=== PATIENT | female | born 1945 ===

== ENCOUNTER 2016-10-07 17:40 | Inpatient (IN) | payer OTHER ==
[2016-10-07] MEDS ORDERED: Sodium Chloride 0.9% 1,000 ML IV STA (18:16)
[2016-10-07 18:41] LABS: VENOUS BLOOD GAS BASE EXCESS -4.5 mmol/L (0.0-2.0); VENOUS BLOOD GAS MODE ROOM AIR; VENOUS BLOOD GAS PCO2 70 mmHg (40-60); VENOUS BLOOD PH 7.17 (7.32-7.43)
[2016-10-07 18:44] LABS: BASO # 0.1 K/uL (0.0-0.2); BASO % 0.2 % (0.0-2.0); EOS # 0.1 K/uL (0.0-0.7); EOS % 0.4 % (0.0-4.0); HEMATOCRIT 38.7 % (34.0-47.0); LYMPH # 1.1 K/uL (1.0-4.3); LYMPH % 5.3 % (20.0-40.0); MEAN CELL VOLUME 94.2 fl (81.0-99.0); MEAN CORPUSCULAR HEMOGLOBIN 30.8 pg (27.0-31.0); MEAN CORPUSCULAR HGB CONC 32.7 g/dL (33.0-37.0); MEAN PLATELET VOLUME 8.5 fl (7.2-11.7); MONO # 0.9 K/uL (0.0-0.8); MONO % 4.3 % (0.0-10.0); NEUT # 18.9 K/uL (1.8-7.0); NEUT % 89.8 % (50.0-75.0); PLATELET COUNT 264 K/uL (130-400); RED CELL DISTRIBUTION WIDTH 12.9 % (11.5-14.5)
[2016-10-07 18:53] LABS: ALKALINE PHOSPHATASE 120 U/L (38-126); ALT/SGPT 27 U/L (9-52); AST/SGOT 22 U/L (14-36); BILIRUBIN,TOTAL 0.5 mg/dl (0.2-1.3); BLOOD UREA NITROGEN 18 mg/dl (7-17); CALCIUM 9.7 mg/dL (8.4-10.2); CARBON DIOXIDE 26 mmol/L (22-30); CHLORIDE 99 mmol/L (98-107); GFR AFRICAN-AMERICAN > 60; GLUCOSE,RANDOM 286 mg/dL (65-105); LIPASE 87 U/L (23-300); MAGNESIUM 1.3 MG/DL (1.6-2.3); PHOSPHOROUS 3.4 mg/dl (2.5-4.5); POTASSIUM 3.9 MMOL/L (3.6-5.0); SODIUM 139 mmol/l (132-148); TOTAL PROTEIN 7.7 G/DL (6.3-8.2)
[2016-10-07 18:58] LABS: PARTIAL THROMBOPLASTIN TIME 26.1 SECONDS (23.3-32.5)
--- NOTE | 2016-10-07 19:10 | ED PDOC ---
HPI: General Adult Time Seen by Provider: 10/07/16 18:13 Chief Complaint (Nursing): Dizziness/Lightheaded Chief Complaint (Provider): Weakness/Vomiting History Per: Patient History/Exam Limitations: no limitations Have you had recent travel within the past 21 days to any of the following countries: [place], [place], [place] or [place]?: No Current Symptoms Are (Timing): Still Present Additional Complaint(s): 18:13 Di Larson is a 71 year old female with a history of hypertension, diabetes , and uterine cancer, as well as a past surgical history of cholecystectomy presents to the ED with a chief complaint of vomiting, three episodes of which she experienced today. Her associated symptoms include headache, diffuse myalgias, lightheadedness, malaise, fatigue, and fever. She states that she has yet to taken any medications for her symptoms, denies any sick contacts or recent travel, as well as denies diarrhea, urinary symptoms, or respiratory symptoms. Past Medical History Reviewed: Historical Data, Nursing Documentation, Vital Signs Vital Signs: Last Vital Signs Temp 99 F 10/08/16 06:41 Pulse 83 10/08/16 09:46 Resp 20 10/08/16 09:46 BP 110/56 L 10/08/16 09:46 Pulse Ox 98 10/08/16 09:46 - Medical History PMH: Diabetes, HTN Denies: HIV Other PMH: uterine CA - Surgical History Surgical History: Cholecystectomy - Family History Family History: States: No Known Family Hx - Social History Current smoker - smoking cessation education provided: No Alcohol: None Drugs: Denies - Home Medications Home Medications: Ambulatory Orders Medication Instructions Recorded Ergocalciferol (Vitamin D2) 50,000 unit PO QWK 10/08/16 [Vitamin D2] Lisinopril [Zestril] 5 mg PO DAILY 10/08/16 Metformin HCl [Glucophage] 1,000 mg PO DAILY 10/08/16 Simvastatin [Zocor] 40 mg PO DAILY 10/08/16 Vitamin A/Vitamin D2 [South African 50,000 mg PO DAILY 10/08/16 Cod Liver Oil Sfgl] - Allergies Allergies/Adverse Reactions: Allergies Allergy/AdvReac Type Severity Reaction Status Date / Time No Known Allergies Allergy Verified 05/07/14 20:42 Review of Systems Constitutional: Positive for: Fever, Weakness, Malaise, Other (fatigue,, diffuse myalgias) Cardiovascular: Positive for: Light Headedness Respiratory: Negative for: Other (no respiratory symptoms) Gastrointestinal: Positive for: Vomiting (x3). Negative for: Diarrhea Genitourinary Female: Negative for: Other (no urinary symptoms) Physical Exam - Reviewed Nursing Documentation Reviewed: Yes Vital Signs Reviewed: Yes - Physical Exam Appears: Positive for: Uncomfortable, In Acute Distress Head Exam: Positive for: ATRAUMATIC, NORMOCEPHALIC Skin: Positive for: Warm, Dry. Negative for: Rash ENT: Positive for: Pharynx Is (clear), Other (dry mucous membranes) Neck: Positive for: Painless ROM, Supple Cardiovascular/Chest: Positive for: Chest Non Tender, Tachycardia (tachycardic with regular rhythm). Negative for: Edema, Murmur Respiratory: Positive for: Normal Breath Sounds (cleared to auscultation bilaterally). Negative for: Rales, Rhonchi, Wheezing Gastrointestinal/Abdominal: Positive for: Soft. Negative for: Tenderness, Mass , Distended, Guarding, Rebound Back: Positive for: Normal Inspection. Negative for: L CVA Tenderness, R CVA Tenderness Extremity: Positive for: Normal ROM. Negative for: Pedal Edema, Deformity Lymphatic: Negative for: Adenopathy Neurologic/Psych: Positive for: Alert, Oriented (x3). Negative for: Motor/ Sensory Deficits - Laboratory Results Result Diagrams: 10/07/16 17:30 10/08/16 08:10 - ECG O2 Sat by Pulse Oximetry: 98 (RA) Pulse Ox Interpretation: Normal Medical Decision Making Medical Decision Makin:30 Initial Impression: Vomiting and Fever vs. Sepsis vs. Dehydration vs. Gastritis vs. Gastroenteritis vs. Pancreatitis vs. Electrolyte Abnormalities vs. Hyperglycemia vs. DKA Initial Plan: * CBC * Glucose * Blood culture * POC * Urine culture * Urinalysis * Sodium Chloride 1000 mL at 1000 mLs/hr * Tylenol 975 mg PO * Zofran 8 mg IV * Chest X-Ray * EKG * Reevaluation * * * Accession No. 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 no. Patient Name: DI LARSON Pt. Address: [address] [place] [address] Rec #: [id number] [place] [address]: Manuel SPENCER, Alona Larry Pt CELL Order Location: [facility] : 1945 Female Age: 71 Order #: [id number] Reason for exam: vomiting CT Scan ABD PELVIS IV CONTRAST ONLY Exam Date: 10/07/16 This imaging exam was performed at [facility] EXAM: CT Abdomen and Pelvis With Intravenous Contrast. CLINICAL HISTORY: 71 years old, female; Signs and symptoms; Nausea and vomiting; Prior surgery ; Surgery date: 6+ months; Surgery type: Uterine ca. Cholecystectomy TECHNIQUE: Axial computed tomography images of the abdomen and pelvis with intravenous contrast. This CT exam was performed using one or more of the following dose reduction techniques: automated exposure control, adjustment of the mA and/or kV according to patient size, and/or use of iterative reconstruction technique. Coronal and sagittal reformatted images were created and reviewed. CONTRAST: 95 mL of [id number] administered intravenously. COMPARISON: CT - ABD PELVIS PO CONTRAST ONLY 05/21/2014 8:44:55 PM FINDINGS: Lower thorax: The heart as visualized appears mildly enlarged. Mild atelectasis and/or scarring in the lung bases. ABDOMEN: Liver: There is a diffuse decrease in hepatic parenchymal density, consistent with fatty infiltration. There are no focal liver lesions present. Gallbladder and bile ducts: There has been a cholecystectomy. No ductal dilation. Pancreas: 1.6 CM cystic lesion in the body of the pancreas on series 3, image 46. However, this is little changed from 05/21/2014. This suggests a benign lesion. The pancreas is somewhat atrophic and slightly fatty replaced. Spleen: The spleen is normal. Adrenals: The adrenal glands are normal. Kidneys and ureters: The kidneys are normal. No hydronephrosis. Stomach and bowel: Stomach is decompressed. Colonic constipation is present. There is no evidence of intestinal obstruction. No mucosal thickening. Appendix: A normal appendix is identified. PELVIS: Bladder: The bladder is normal. Reproductive: Uterus is atrophic. ABDOMEN and PELVIS: Intraperitoneal space: There is no evidence of free intraperitoneal fluid. There is no free intraperitoneal air. Bones/joints: There are moderate degenerative changes present. There is moderate diffuse osteopenia. No acute fracture. No dislocation. Soft tissues: There are small, left greater than right fat containing inguinal hernias. Vasculature: The aorta is normal. No abdominal aortic aneurysm. Lymph nodes: There are borderline bilateral inguinal nodes without chucho adenopathy. There is no evidence of lymphadenopathy. IMPRESSION: 1. The heart as visualized appears mildly enlarged. 2. 1.6 CM cystic lesion in the body of the pancreas on series 3, image 46. However, this is little changed from 05/21/2014. This suggests a benign lesion. 3. Additional incidental and/or chronic findings as described. Dictated By: Patrick Brito MD, MD Dictated Date/Time: 10/07/162238 Signed By: Patrick Brito MD Date Signed: 2238 Transcribed By: SASCHA Transcribe Date/Time : 10/07/162238 TONIA/DARVIN Pt with marked leukocytosis on labs, initially elevated lactic acid (improving with IVF treatment.) Continues to have some weakness and nausea, as well as comorbidities with sepsis. Hospitalized to Dr Cannon (for PMD Dr Mccray) for continued IVF and bowel rest. DANIEL Cannon @3680. DANIEL pt and family findings and plan of care. Scribe Attestation: Documented by Olga Ribeiro, acting as a scribe for Alona Jackson MD. Provider Scribe Attestation: All medical record entries made by the Scribe were at my direction and personally dictated by me. I have reviewed the chart and agree that the record accurately reflects my personal performance of the history, physical exam, medical decision making, and the department course for this patient. I have also personally directed, reviewed, and agree with the discharge instructions and disposition. Disposition - Clinical Impression Clinical Impression: Vomiting, Sepsis Counseled Patient/Family Regarding: Studies Performed, Diagnosis - Disposition Disposition Time: 23:00 Condition: GUARDED - Pt Status Changed To: Hospital Disposition Of: Observation - POA Present On Arrival: Poor Glycemic Control
[2016-10-07 19:49] LABS: NEUTROPHIL 90 % (42-75); TOTAL CELLS COUNTED 100
[2016-10-07 20:02] LABS: RBC URINE 3 /hpf (0-3); URINE BACTERIA RARE (<OCC); URINE BILIRUBIN NEGATIVE (NEGATIVE); URINE BLOOD NEGATIVE (NEGATIVE); URINE COLOR YELLOW (YELLOW); URINE GLUCOSE (UA) >=500 mg/dL (Normal); URINE KETONE TRACE mg/dL (NEGATIVE); URINE LEUKOCYTE ESTERASE NEG Leu/uL (Negative); URINE PROTEIN NEGATIVE (NEGATIVE); URINE UROBILINOGEN 0.2-1.0 mg/dL (0.2-1.0); WBC URINE 1 /hpf (0-5)
[2016-10-07] MEDS ORDERED: Piperacillin/Tazobact 3.375 GM in Sodium Chloride 0.9% 100 ML IV STA (20:40)
[2016-10-07] MEDS ORDERED: Piperacillin/Tazobact 3.375 gm Inj IVPB ONE (20:57)
[2016-10-07 21:15] LABS: ABG ALLEN TEST YES; ARTERIAL BLOOD GAS HCO3 26.5 mmol/L (21-28); ARTERIAL BLOOD GAS MODE ROOM AIR; ARTERIAL BLOOD GAS PH 7.41 (7.35-7.45); ARTERIAL BLOOD GAS PO2 66 mm/Hg (80-100)
[2016-10-07] MEDS ORDERED: Iohexol 300 100 ML IJ ONE (21:57)
[2016-10-07] MEDS ORDERED: Sodium Chloride 0.9% 50 ML IV ONE (21:57)
--- NOTE | 2016-10-07 22:40 | CT ---
EXAM: CT Abdomen and Pelvis With Intravenous Contrast. CLINICAL HISTORY: 71 years old, female; Signs and symptoms; Nausea and vomiting; Prior surgery; Surgery date: 6+ months; Surgery type: Uterine ca. Cholecystectomy TECHNIQUE: Axial computed tomography images of the abdomen and pelvis with intravenous contrast. This CT exam was performed using one or more of the following dose reduction techniques: automated exposure control, adjustment of the mA and/or kV according to patient size, and/or use of iterative reconstruction technique. Coronal and sagittal reformatted images were created and reviewed. CONTRAST: 95 mL of [id number] administered intravenously. COMPARISON: CT - ABD PELVIS PO CONTRAST ONLY 05/21/2014 8:44:55 PM FINDINGS: Lower thorax: The heart as visualized appears mildly enlarged. Mild atelectasis and/or scarring in the lung bases. ABDOMEN: Liver: There is a diffuse decrease in hepatic parenchymal density, consistent with fatty infiltration. There are no focal liver lesions present. Gallbladder and bile ducts: There has been a cholecystectomy. No ductal dilation. Pancreas: 1.6 CM cystic lesion in the body of the pancreas on series 3, image 46. However, this is little changed from 05/21/2014. This suggests a benign lesion. The pancreas is somewhat atrophic and slightly fatty replaced. Spleen: The spleen is normal. Adrenals: The adrenal glands are normal. Kidneys and ureters: The kidneys are normal. No hydronephrosis. Stomach and bowel: Stomach is decompressed. Colonic constipation is present. There is no evidence of intestinal obstruction. No mucosal thickening. Appendix: A normal appendix is identified. PELVIS: Bladder: The bladder is normal. Reproductive: Uterus is atrophic. ABDOMEN and PELVIS: Intraperitoneal space: There is no evidence of free intraperitoneal fluid. There is no free intraperitoneal air. Bones/joints: There are moderate degenerative changes present. There is moderate diffuse osteopenia. No acute fracture. No dislocation. Soft tissues: There are small, left greater than right fat containing inguinal hernias. Vasculature: The aorta is normal. No abdominal aortic aneurysm. Lymph nodes: There are borderline bilateral inguinal nodes without chucho adenopathy. There is no evidence of lymphadenopathy. IMPRESSION: 1. The heart as visualized appears mildly enlarged. 2. 1.6 CM cystic lesion in the body of the pancreas on series 3, image 46. However, this is little changed from 05/21/2014. This suggests a benign lesion. 3. Additional incidental and/or chronic findings as described.
[2016-10-07] MEDS ORDERED: Sodium Chloride 0.9% 75 ML IV STA (22:53)
[2016-10-08 08:34] LABS: ALB/GLOB RATIO 0.9 (1.0-2.1); ALKALINE PHOSPHATASE 80 U/L (38-126); ALT/SGPT 21 U/L (9-52); AST/SGOT 17 U/L (14-36); BILIRUBIN,TOTAL 0.6 mg/dl (0.2-1.3); BLOOD UREA NITROGEN 14 mg/dl (7-17); CALCIUM 8.3 mg/dL (8.4-10.2); CARBON DIOXIDE 26 mmol/L (22-30); CHLORIDE 105 mmol/L (98-107); CHOLESTEROL 106 mg/dL (0-199); GFR AFRICAN-AMERICAN > 60; GLUCOSE,RANDOM 210 mg/dL (65-105); POTASSIUM 3.7 MMOL/L (3.6-5.0); SODIUM 141 mmol/l (132-148); TOTAL PROTEIN 6.4 G/DL (6.3-8.2)
[2016-10-08 08:54] LABS: T4 4.15 ug/dl (5.5-11.0)
[2016-10-08] MEDS ORDERED: VITAMIN A PO SCH (09:00)
[2016-10-08] MEDS ORDERED: VITAMIN D2 PO SCH (09:00)
[2016-10-08 09:07] LABS: THYROID STIMULATING HORMONE 2.06 mIU/ML (0.46-4.68)
--- NOTE | 2016-10-08 09:40 | RAD ---
HISTORY: Sepsis Patient COMPARISON: Comparison is made to the previous study dated 11/09/2013 FINDINGS: LUNGS: No evidence of new infiltrate or consolidation in the lungs. PLEURA: No significant pleural effusion identified, no pneumothorax apparent. CARDIOVASCULAR: The cardiac silhouette is mildly enlarged. OSSEOUS STRUCTURES: No significant abnormalities. VISUALIZED UPPER ABDOMEN: Normal. OTHER FINDINGS: None. IMPRESSION: No active disease. No significant interval change.
--- NOTE | 2016-10-08 13:57 | CARD ---
APPROVED REPORT EKG Measurement Heart [id number] MI [id number] <Conclusion> Sinus tachycardia Possible Left atrial enlargement Nonspecific ST and T wave abnormality Abnormal ECG
--- NOTE | 2016-10-08 14:19 | CP.PCM.HP ---
History of Present Illness - History of Present Illness History of Present Illness: CC: Vomiting/Fever. 71 y/o F evaluated by ER doctor at [facility] for Vomiting x3 on DOA with no relief of symptoms. Pt was brought by family c/o of vomiting x 3 associated to fever and chills (in ER TMAx 101.6), also associated to headache, lightheadedness ( BS finger stick 313, HR 137). Worsening symptoms: Weakness, dizziness. Aggravating factor: As per family, she took extra dose of Metformin on DOA. As per daughter; Pt had consult with her PMD on DOA in AM and her Metformin medication was changed from 500 to 1000 mg, when she get home she took both doses and since that moment she begins feeling bad and vomiting start, after she vomiting for 3rd time, and felt she had tactile fever, she bring her mother to ER [facility] and after evaluation Pt was admitted. Pt denied: Diarrhea, abdominal pain, CP, SOB, cough, urinary symptoms, sick contact, recent travel. PMHx: HTN, DMII, Uterine Ca. CXR shows: No active disease. CT Abd/Pelv: 1.6 cm cystic lesion in the body of the pancreas, there is a little change from CT of 05/21/14, this suggests a benign lesion. EKG= Sinus Tachycardia. Present on Admission - Present on Admission Any Indicators Present on Admission: Yes History of Uncontrolled Diabetes: Yes Review of Systems - Constitutional Constitutional: Chills, Fever, Headache, Weakness - EENT Eyes: Other (negative) Ears: Other (negative) Nose/Mouth/Throat: Other (negative) - Cardiovascular Cardiovascular: Lightheadedness, Rapid Heart Rate. absent: Pedal Edema - Respiratory Respiratory: Other (negative) - Gastrointestinal Gastrointestinal: Nausea, Vomiting - Genitourinary Genitourinary: Other (negative) - Musculoskeletal Musculoskeletal: Other (negative) - Integumentary Integumentary: Other (negative) - Neurological Neurological: Other (negative) - Psychiatric Psychiatric: Other (negative) - Endocrine Endocrine: Other (negative) - Hematologic/Lymphatic Hematologic: Other (negative) Past Patient History - Past Medical History & Family History Past Medical History?: Yes Pertinent Family History: unknown - Past Social History Smoking Status: Never Smoked Alcohol: None Drugs: Denies Home Situation {Lives}: With Family - CARDIAC Hx Cardiac Disorders: Yes Hx Hypertension: Yes - PULMONARY Hx Respiratory Disorders: No - NEUROLOGICAL Hx Neurological Disorder: No - HEENT Hx HEENT Problems: No - RENAL Hx Chronic Kidney Disease: No - ENDOCRINE/METABOLIC Hx Endocrine Disorders: Yes Hx Diabetes Mellitus Type 2: Yes - HEMATOLOGICAL/ONCOLOGICAL Hx Cancer: Yes (Uterine) Hx Human Immunodeficiency Virus (HIV): No - INTEGUMENTARY Hx Dermatological Problems: No - MUSCULOSKELETAL/RHEUMATOLOGICAL Hx Musculoskeletal Disorders: No - GASTROINTESTINAL Hx Gastrointestinal Disorders: No - GENITOURINARY/GYNECOLOGICAL Hx Genitourinary Disorders: No - PSYCHIATRIC Hx Psychophysiologic Disorder: No - SURGICAL HISTORY Hx Surgeries: Yes Hx Cholecystectomy: Yes - ANESTHESIA Hx Anesthesia: Yes Hx Anesthesia Reactions: No Meds Home Medications: Home Medication List Medication Instructions Recorded Confirmed Type Ciprofloxacin HCl [Cipro] 500 mg PO BID #10 tablet 10/11/16 Rx Lactobacillus Acidophilus [Bacid 1 cap PO BID #10 cap 10/11/16 Rx Acidophilus] Allergies/Adverse Reactions: Allergies Allergy/AdvReac Type Severity Reaction Status Date / Time No Known Allergies Allergy Verified 05/07/14 20:42 Physical Exam - Constitutional Appears: No Acute Distress - Head Exam Head Exam: NORMAL INSPECTION - Eye Exam Eye Exam: PERRL - ENT Exam ENT Exam: Normal Oropharynx - Neck Exam Neck exam: Positive for: Normal Inspection - Respiratory Exam Respiratory Exam: NORMAL BREATHING PATTERN - Cardiovascular Exam Cardiovascular Exam: REGULAR RHYTHM - GI/Abdominal Exam GI & Abdominal Exam: Normal Bowel Sounds, Soft - Extremities Exam Extremities exam: Positive for: normal inspection - Back Exam Back exam: NORMAL INSPECTION - Neurological Exam Neurological exam: Alert, Oriented x3 Additional comments: Follows commands. - Psychiatric Exam Psychiatric exam: Normal Mood - Skin Skin Exam: Warm Results - Vital Signs Recent Vital Signs: Last Vital Signs Temp 99 F 10/08/16 06:41 Pulse 82 10/08/16 14:12 Resp 20 10/08/16 14:12 BP 110/56 L 10/08/16 14:12 Pulse Ox 98 10/08/16 14:12 reviewed JSunita - Labs Result Diagrams: 10/10/16 05:50 10/10/16 05:50 Labs: Laboratory Results - last 24 hr 10/08/16 08:10 Sodium 141 Potassium 3.7 Chloride 105 Carbon Dioxide 26 Anion Gap 14 BUN 14 Creatinine 0.5 L Est GFR ( Amer) > 60 Est GFR (Non-Af Amer) > 60 Random Glucose 210 H Calcium 8.3 L Total Bilirubin 0.6 AST 17 ALT 21 Alkaline Phosphatase 80 Total Protein 6.4 Albumin 3.0 L D Globulin 3.4 Albumin/Globulin Ratio 0.9 L Triglycerides 61 D Cholesterol 106 LDL Cholesterol Direct 55 HDL Cholesterol 32 Thyroxine (T4) 4.15 L Total T3 0.591 L TSH 3rd Generation 2.06 reviewed J.P. - EKG Data EKG comments: reviewed J.P. - Imaging and Cardiology Chest x-ray Status: Report reviewed by me (Reynaldo) CT scan - abdomen Status: Report reviewed by me (Reynaldo) CT scan - pelvis Status: Report reviewed by me (Reynaldo) Assessment & Plan - Assessment and Plan (Free Text) Assessment: Sepsis Acute high Vomiting Acute high Fever Acute high DMII Chronic high HTN Chronic. Plan: Continue Zosyn IV, Zofram, Zestril, Lipitor and rest of Tx, f/u Blood C-S, U C- S. - Date & Time Date: 10/08/16 Time: 12:00
[2016-10-08] MEDS ORDERED: Piperacillin/Tazobact 3.375 gm Inj IVPB ONE (14:42)
[2016-10-08] MEDS: Piperacillin/Tazobact 3.375 GM in Sodium Chloride 0.9% 100 ML IVPB SCH ×2 (14:53→21:25)
[2016-10-08 15:49] LABS: BASO % 0.2 % (0.0-2.0); EOS % 0.4 % (0.0-4.0); HEMATOCRIT 33.7 % (34.0-47.0); LYMPH # 1.3 K/uL (1.0-4.3); MEAN CELL VOLUME 95.6 fl (81.0-99.0); MEAN CORPUSCULAR HEMOGLOBIN 30.8 pg (27.0-31.0); MEAN CORPUSCULAR HGB CONC 32.2 g/dL (33.0-37.0); MEAN PLATELET VOLUME 9.2 fl (7.2-11.7); MONO # 0.7 K/uL (0.0-0.8); MONO % 5.8 % (0.0-10.0); NEUT # 9.1 K/uL (1.8-7.0); NEUT % 81.6 % (50.0-75.0); RED CELL DISTRIBUTION WIDTH 12.9 % (11.5-14.5); WHITE BLOOD COUNT 11.2 K/uL (4.8-10.8)
[2016-10-08] MEDS: Sodium Chloride 0.45% 1,000 ML IV SCH (18:06)
[2016-10-08] MEDS: Insulin Lispro (humaLOG) 100 Units/ml Inj SC SCH (22:32)
[2016-10-09] MEDS: Piperacillin/Tazobact 3.375 GM in Sodium Chloride 0.9% 100 ML IVPB SCH ×4 (03:51→22:27)
[2016-10-09] MEDS: Sodium Chloride 0.45% 1,000 ML IV SCH ×2 (03:57→05:15)
[2016-10-09] MEDS: Insulin Lispro (humaLOG) 100 Units/ml Inj SC SCH ×4 (07:28→22:36)
[2016-10-09 08:12] LABS: HEMATOCRIT 32.5 % (34.0-47.0); MEAN CELL VOLUME 95.6 fl (81.0-99.0); MEAN CORPUSCULAR HEMOGLOBIN 31.3 pg (27.0-31.0); MEAN CORPUSCULAR HGB CONC 32.7 g/dL (33.0-37.0); RED CELL DISTRIBUTION WIDTH 13.1 % (11.5-14.5); WHITE BLOOD COUNT 7.5 K/uL (4.8-10.8)
[2016-10-09 08:16] LABS: ALB/GLOB RATIO 0.9 (1.0-2.1); ALKALINE PHOSPHATASE 78 U/L (38-126); ALT/SGPT 22 U/L (9-52); AST/SGOT 17 U/L (14-36); BILIRUBIN,TOTAL 0.4 mg/dl (0.2-1.3); BLOOD UREA NITROGEN 11 mg/dl (7-17); CALCIUM 8.5 mg/dL (8.4-10.2); CARBON DIOXIDE 26 mmol/L (22-30); CHLORIDE 105 mmol/L (98-107); CHOLESTEROL 103 mg/dL (0-199); GFR AFRICAN-AMERICAN > 60; GLUCOSE,RANDOM 147 mg/dL (65-105); POTASSIUM 3.6 MMOL/L (3.6-5.0); SODIUM 142 mmol/l (132-148); TOTAL PROTEIN 6.1 G/DL (6.3-8.2)
[2016-10-09 08:33] LABS: T4 4.25 ug/dl (5.5-11.0)
[2016-10-09 08:46] LABS: THYROID STIMULATING HORMONE 1.57 mIU/ML (0.46-4.68)
[2016-10-09] MEDS: Ciprofloxacin 400mg/200ml D5W 200 ML IVPB SCH ×2 (10:35→20:26)
--- NOTE | 2016-10-09 12:19 | CP.PCM.PN ---
Subjective - Date & Time of Evaluation Date of Evaluation: 10/09/16 - Subjective Subjective: F/U Sepsis. Pt c/o of nausea, headache, no vomiting, no abdominal pain. Objective - Vital Signs/Intake and Output Vital Signs (last 24 hours): Temp Pulse Resp BP Pulse Ox 98.6 F 78 20 98/58 L 95 10/09/16 07:47 10/09/16 10:43 10/09/16 07:47 10/09/16 07:47 10/09/16 10:43 - Medications Medications: Current Medications Acetaminophen (Tylenol 325mg Tab) 975 mg PO ONCE PRN PRN Reason: Fever >100.4 F Last Admin: 10/08/16 03:47 Dose: 975 mg Acetaminophen (Tylenol 325mg Tab) 650 mg PO Q4 PRN PRN Reason: Pain, Mild (1-3) Last Admin: 10/09/16 03:58 Dose: 650 mg Atorvastatin Calcium (Lipitor) 20 mg PO DAILY [facility] Last Admin: 10/09/16 09:12 Dose: 20 mg Enoxaparin Sodium (Lovenox) 40 mg SC DAILY [facility] PRN Reason: Protocol Ergocalciferol (Drisdol 50,000 Intl Units Cap) 1 cap PO QWK [facility] Piperacillin Sod/Tazobactam (Sod 3.375 gm/ Sodium Chloride) 100 mls @ 100 mls/ hr IVPB Q6 [facility] Last Admin: 10/09/16 09:14 Dose: 100 mls/hr Sodium Chloride (Sodium Chloride 0.45%) 1,000 mls @ 80 mls/hr IV .[id number] [facility] Stop: 10/09/16 16:46 Last Admin: 10/09/16 05:15 Dose: Not Given Ciprofloxacin (Cipro 400mg/200ml Dsw) 200 mls @ 200 mls/hr IVPB Q12 [facility] Last Admin: 10/09/16 10:35 Dose: 200 mls/hr Insulin Human Lispro (Humalog) 0 units SC ACCU-CHECK [facility] PRN Reason: Protocol Last Admin: 10/09/16 07:28 Dose: Not Given Lisinopril (Zestril) 5 mg PO DAILY [facility] Last Admin: 10/09/16 09:13 Dose: Not Given Ondansetron HCl (Zofran Inj) 4 mg IVP Q4 PRN PRN Reason: Nausea/Vomiting Last Admin: 10/09/16 00:42 Dose: 4 mg - Labs Labs: 10/09/16 06:35 10/09/16 06:35 PT 10.3 SECONDS (9.6-11.2) 10/07/16 17:30 INR 0.99 (0.92-1.08) 10/07/16 17:30 APTT 26.1 SECONDS (23.3-32.5) 10/07/16 17:30 - Constitutional Appears: No Acute Distress - Head Exam Head Exam: NORMAL INSPECTION - Eye Exam Eye Exam: PERRL - ENT Exam ENT Exam: Normal Oropharynx - Neck Exam Neck Exam: Normal Inspection - Respiratory Exam Respiratory Exam: NORMAL BREATHING PATTERN - Cardiovascular Exam Cardiovascular Exam: REGULAR RHYTHM - GI/Abdominal Exam GI & Abdominal Exam: Soft, Normal Bowel Sounds - Extremities Exam Extremities Exam: Normal Inspection - Back Exam Back Exam: NORMAL INSPECTION - Neurological Exam Neurological Exam: Alert, Oriented x3 Additional comments: Follows commands. - Psychiatric Exam Psychiatric exam: Normal Mood - Skin Skin Exam: Warm Assessment and Plan - Assessment and Plan (Free Text) Assessment: Sepsis Acute high Vomiting Resolving Fever Resolved. DMII Chronic HTN Chronic Plan: Continue Cipro, Zosyn, Tylenol, Zestril, Insulin and rest of Tx. f/u GI consult.
[2016-10-09] MEDS: Enoxaparin 40 mg Syringe SC SCH (13:00)
[2016-10-10] MEDS: Piperacillin/Tazobact 3.375 GM in Sodium Chloride 0.9% 100 ML IVPB SCH ×4 (04:22→22:29)
[2016-10-10] MEDS: Insulin Lispro (humaLOG) 100 Units/ml Inj SC SCH ×4 (07:26→23:12)
[2016-10-10 07:59] LABS: HEMATOCRIT 33.8 % (34.0-47.0); MEAN CELL VOLUME 94.2 fl (81.0-99.0); MEAN CORPUSCULAR HEMOGLOBIN 31.5 pg (27.0-31.0); MEAN CORPUSCULAR HGB CONC 33.4 g/dL (33.0-37.0); RED CELL DISTRIBUTION WIDTH 12.9 % (11.5-14.5); WHITE BLOOD COUNT 4.8 K/uL (4.8-10.8)
[2016-10-10 08:16] LABS: BLOOD UREA NITROGEN 7 mg/dl (7-17); CALCIUM 8.7 mg/dL (8.4-10.2); CARBON DIOXIDE 27 mmol/L (22-30); CHLORIDE 106 mmol/L (98-107); GFR AFRICAN-AMERICAN > 60; GLUCOSE,RANDOM 138 mg/dL (65-105); POTASSIUM 3.8 MMOL/L (3.6-5.0); SODIUM 144 mmol/l (132-148)
[2016-10-10] MEDS: Ciprofloxacin 400mg/200ml D5W 200 ML IVPB SCH ×2 (09:38→21:28)
[2016-10-10] MEDS: Enoxaparin 40 mg Syringe SC SCH (09:39)
--- NOTE | 2016-10-10 12:31 | CP.PCM.PN ---
Subjective - Date & Time of Evaluation Date of Evaluation: 10/10/16 Time of Evaluation: 11:00 - Subjective Subjective: F/U Sepsis. Feeling better, Patient wants to eat, denies N/V abdominal pain Objective - Vital Signs/Intake and Output Vital Signs (last 24 hours): Temp Pulse Resp BP Pulse Ox 99.3 F 100 H 20 108/65 96 10/10/16 08:01 10/10/16 09:41 10/10/16 08:01 10/10/16 09:41 10/10/16 08:01 - Medications Medications: Current Medications Acetaminophen (Tylenol 325mg Tab) 975 mg PO ONCE PRN PRN Reason: Fever >100.4 F Last Admin: 10/08/16 03:47 Dose: 975 mg Acetaminophen (Tylenol 325mg Tab) 650 mg PO Q4 PRN PRN Reason: Pain, Mild (1-3) Last Admin: 10/09/16 03:58 Dose: 650 mg Atorvastatin Calcium (Lipitor) 20 mg PO DAILY [facility] Last Admin: 10/10/16 09:39 Dose: 20 mg Enoxaparin Sodium (Lovenox) 40 mg SC DAILY [facility] PRN Reason: Protocol Last Admin: 10/10/16 09:39 Dose: 40 mg Ergocalciferol (Drisdol 50,000 Intl Units Cap) 1 cap PO QWK [facility] Piperacillin Sod/Tazobactam (Sod 3.375 gm/ Sodium Chloride) 100 mls @ 100 mls/ hr IVPB Q6 [facility] Last Admin: 10/10/16 09:42 Dose: 100 mls/hr Ciprofloxacin (Cipro 400mg/200ml Dsw) 200 mls @ 200 mls/hr IVPB Q12 [facility] Last Admin: 10/10/16 09:38 Dose: 200 mls/hr Insulin Human Lispro (Humalog) 0 units SC ACCU-CHECK [facility] PRN Reason: Protocol Last Admin: 10/10/16 12:17 Dose: 2 u Lisinopril (Zestril) 5 mg PO DAILY [facility] Last Admin: 10/10/16 09:41 Dose: 5 mg Ondansetron HCl (Zofran Inj) 4 mg IVP Q4 PRN PRN Reason: Nausea/Vomiting Last Admin: 10/09/16 00:42 Dose: 4 mg - Labs Labs: 10/10/16 05:50 10/10/16 05:50 PT 10.3 SECONDS (9.6-11.2) 10/07/16 17:30 INR 0.99 (0.92-1.08) 10/07/16 17:30 APTT 26.1 SECONDS (23.3-32.5) 10/07/16 17:30 - Constitutional Appears: No Acute Distress - Head Exam Head Exam: NORMAL INSPECTION - Eye Exam Pupil Exam: PERRL - ENT Exam ENT Exam: Normal Exam - Neck Exam Neck Exam: Normal Inspection - Respiratory Exam Respiratory Exam: NORMAL BREATHING PATTERN - Cardiovascular Exam Cardiovascular Exam: REGULAR RHYTHM, Murmur (1/6 LSB) - GI/Abdominal Exam GI & Abdominal Exam: Soft, Normal Bowel Sounds - Extremities Exam Extremities Exam: Normal Inspection - Back Exam Back Exam: NORMAL INSPECTION - Neurological Exam Neurological Exam: Alert Additional comments: no focal motor/sensory deficit - Psychiatric Exam Psychiatric exam: Normal Affect, Normal Mood - Skin Skin Exam: Warm Assessment and Plan - Assessment and Plan (Free Text) Assessment: Sepsis Acute High improved DM Chronic High HTN Chronic medium Plan: wbc 11.3 , wbc 4.8 , blood C-S x 2 negative , U C-S prob contamination, increase diet, continue Cipro , Zosyn , U C-S straight sath , BS control
[2016-10-11] MEDS: Piperacillin/Tazobact 3.375 GM in Sodium Chloride 0.9% 100 ML IVPB SCH ×2 (04:19→09:46)
[2016-10-11] MEDS: Insulin Lispro (humaLOG) 100 Units/ml Inj SC SCH ×2 (06:52→14:36)
[2016-10-11 08:45] VITALS: RESP 18; TEMP 98.5; O2SAT 96
[2016-10-11] MEDS: Ciprofloxacin 400mg/200ml D5W 200 ML IVPB SCH (09:44)
[2016-10-11] MEDS: Enoxaparin 40 mg Syringe SC SCH (09:54)
[2016-10-11 09:55] VITALS: BP 116/60; PULSE 79
--- NOTE | 2016-10-11 13:31 | CP.PCM.PN ---
Subjective - Date & Time of Evaluation Date of Evaluation: 10/11/16 Time of Evaluation: 12:40 - Subjective Subjective: F/U Sepsis Pt awake, no A/D, no abdominal pain, no n/v/d, no0 fever, diet taken well. Objective - Vital Signs/Intake and Output Vital Signs (last 24 hours): Temp Pulse Resp BP Pulse Ox 98.5 F 79 18 116/60 96 10/11/16 08:45 10/11/16 09:54 10/11/16 08:45 10/11/16 09:54 10/11/16 08:45 - Medications Medications: Current Medications Acetaminophen (Tylenol 325mg Tab) 975 mg PO ONCE PRN PRN Reason: Fever >100.4 F Last Admin: 10/08/16 03:47 Dose: 975 mg Acetaminophen (Tylenol 325mg Tab) 650 mg PO Q4 PRN PRN Reason: Pain, Mild (1-3) Last Admin: 10/09/16 03:58 Dose: 650 mg Atorvastatin Calcium (Lipitor) 20 mg PO DAILY [facility] Last Admin: 10/10/16 09:39 Dose: 20 mg Enoxaparin Sodium (Lovenox) 40 mg SC DAILY [facility] PRN Reason: Protocol Last Admin: 10/11/16 09:54 Dose: 40 mg Ergocalciferol (Drisdol 50,000 Intl Units Cap) 1 cap PO QWK [facility] Piperacillin Sod/Tazobactam (Sod 3.375 gm/ Sodium Chloride) 100 mls @ 100 mls/ hr IVPB Q6 [facility] Last Admin: 10/11/16 09:46 Dose: 100 mls/hr Ciprofloxacin (Cipro 400mg/200ml Dsw) 200 mls @ 200 mls/hr IVPB Q12 [facility] Last Admin: 10/11/16 09:44 Dose: 200 mls/hr Insulin Human Lispro (Humalog) 0 units SC ACCU-CHECK [facility] PRN Reason: Protocol Last Admin: 10/11/16 06:52 Dose: 1 u Lisinopril (Zestril) 5 mg PO DAILY [facility] Last Admin: 10/11/16 09:54 Dose: 5 mg Metformin HCl (Glucophage) 500 mg PO BIDWM [facility] Last Admin: 10/11/16 08:00 Dose: 500 mg Ondansetron HCl (Zofran Inj) 4 mg IVP Q4 PRN PRN Reason: Nausea/Vomiting Last Admin: 10/09/16 00:42 Dose: 4 mg - Labs Labs: 10/10/16 05:50 10/10/16 05:50 PT 10.3 SECONDS (9.6-11.2) 10/07/16 17:30 INR 0.99 (0.92-1.08) 10/07/16 17:30 APTT 26.1 SECONDS (23.3-32.5) 10/07/16 17:30 - Constitutional Appears: No Acute Distress - Head Exam Head Exam: NORMAL INSPECTION - Eye Exam Eye Exam: PERRL - ENT Exam ENT Exam: Normal Exam - Neck Exam Neck Exam: Normal Inspection - Respiratory Exam Respiratory Exam: NORMAL BREATHING PATTERN - Cardiovascular Exam Cardiovascular Exam: REGULAR RHYTHM, Murmur (systolic 1/6 LSB) - GI/Abdominal Exam GI & Abdominal Exam: Soft, Normal Bowel Sounds - Extremities Exam Extremities Exam: Normal Inspection - Back Exam Back Exam: NORMAL INSPECTION - Neurological Exam Neurological Exam: Alert, Oriented x3 Additional comments: No focal motor sensory deficit. - Psychiatric Exam Psychiatric exam: Normal Affect, Normal Mood - Skin Skin Exam: Normal Color, Warm Assessment and Plan - Assessment and Plan (Free Text) Assessment: Sepsis Improved. DMII Chronic HTN Chronic. Plan: Pt improved and stable to be discharged, see intruction medication sheet, f/u with PMD in a week.
[2016-10-14] MEDS ORDERED: Ergocalciferol 50,000 Intl Units Cap PO SCH (09:00)
== END 2016-10-11 16:37 | disposition home or self-care (01) | DRG 901 ==
LOC: H.ER 17:40 → H.ERHOLD 22:52 → H.MEDSURG1 10-08 15:23 → OBSVTOIN 10-09 09:36
PROVIDERS: ADMIT Internal Medicine Pulmonary Disease; ATTEND Internal Medicine Pulmonary Disease
DX: A41.9 Sepsis, unspecified organism (principal); E11.9 Type 2 diabetes mellitus without complications; I10 Essential (primary) hypertension; Z85.42 Personal history of malignant neoplasm of other parts of uterus; Z79.84 Long term (current) use of oral hypoglycemic drugs

== ENCOUNTER 2017-10-26 23:47 | Emergency (ER) | payer OTHER ==
--- NOTE | 2017-10-27 00:10 | ED PDOC ---
Hyperglycemia/Hypoglycemia Chief Complaint (Nursing): Dizziness/Lightheaded : The patient does not have any of the infectious symptoms listed except for those marked. Past Medical History Vital Signs: Last Vital Signs Temp 98.3 F 10/26/17 23:54 Pulse 73 10/26/17 23:54 Resp 16 10/26/17 23:54 BP 131/75 10/26/17 23:54 Pulse Ox 98 10/26/17 23:54 - Medical History PMH: Diabetes, HTN Denies: HIV, Chronic Kidney Disease - Surgical History Surgical History: Cholecystectomy - Family History Family History: States: Unknown Family Hx - Home Medications Home Medications: Ambulatory Orders Medication Instructions Recorded Ergocalciferol (Vitamin D2) 50,000 unit PO QWK 10/08/16 [Vitamin D2] Lisinopril [Zestril] 5 mg PO DAILY 10/08/16 Metformin HCl [Glucophage] 1,000 mg PO DAILY 10/08/16 Simvastatin [Zocor] 40 mg PO DAILY 10/08/16 Vitamin A/Vitamin D2 [[place] 50,000 mg PO DAILY 10/08/16 Cod Liver Oil Sfgl] Ciprofloxacin HCl [Cipro] 500 mg PO BID #10 tablet 10/11/16 Lactobacillus Acidophilus [Bacid 1 cap PO BID #10 cap 10/11/16 Acidophilus] - Allergies Allergies/Adverse Reactions: Allergies Allergy/AdvReac Type Severity Reaction Status Date / Time No Known Allergies Allergy Verified 10/26/17 23:54 Physical Exam - Reviewed Nursing Documentation Reviewed: Yes Vital Signs Reviewed: Yes - Physical Exam Appears: Positive for: Well Head Exam: Positive for: ATRAUMATIC Skin: Positive for: Normal Color Eye Exam: Positive for: Normal appearance, EOMI, PERRL. Negative for: Nystagmus , Periorbital swelling, Periorbital tenderness, Conjunctival injection, Scleral icterus Neck: Positive for: Normal. Negative for: Painless ROM, Supple, Decreased ROM, Limited ROM Cardiovascular/Chest: Positive for: Regular Rate, Rhythm, Chest Non Tender. Negative for: Edema, Gallop, Murmur, Bradycardia, Tachycardia, Friction Rub Respiratory: Positive for: Normal Breath Sounds. Negative for: Decreased Breath Sounds, Accessory Muscle Use, Crackles, Rales, Rhonchi, Stridor, Wheezing , Respiratory Distress Pulses-Carotid (L): 2+ Pulses-Carotid (R): 2+ Pulses-Radial (L): 2+ Pulses-Radial (R): 2+ Gastrointestinal/Abdominal: Positive for: Normal Exam, Bowel Sounds, Soft Lymphatic: Positive for: Deferred Neurologic/Psych: Positive for: Alert - Laboratory Results Result Diagrams: 10/27/17 01:01 10/27/17 01:01 - ECG O2 Sat by Pulse Oximetry: 98 Medical Decision Making Medical Decision Making: Blood sugar at presentation is 455 blood sugar after metfomin and fluids is 203 pt will be discharged with instructions to follow up with her pmd Disposition - Clinical Impression Clinical Impression: Hyperglycemia - Patient ED Disposition Is Patient to be Admitted: No Doctor Will See Patient In The: Office Counseled Patient/Family Regarding: Studies Performed, Diagnosis, Need For Followup - Disposition Disposition: Routine/Home Disposition Time: 03:54 Condition: GOOD Instructions: Hyperglycemia, Adult, The ABCs of Diabetes, Hyperglycemia, Adult (DC) Forms: [employer] (Portuguese)
[2017-10-27] MEDS ORDERED: Sodium Chloride 0.9% 1,000 ML IV SCH (00:45)
[2017-10-27 01:05] LABS: BASO % 0.6 % (0.0-2.0); EOS # 0.1 K/uL (0.0-0.7); EOS % 1.6 % (0.0-4.0); HEMOGLOBIN 12.3 g/dL (12.0-16.0); LYMPH # 1.6 K/uL (1.0-4.3); LYMPH % 19.6 % (20.0-40.0); MEAN CELL VOLUME 95.6 fl (81.0-99.0); MEAN CORPUSCULAR HEMOGLOBIN 31.7 pg (27.0-31.0); MEAN CORPUSCULAR HGB CONC 33.1 g/dL (33.0-37.0); MEAN PLATELET VOLUME 8.6 fl (7.2-11.7); MONO # 0.7 K/uL (0.0-0.8); MONO % 8.1 % (0.0-10.0); NEUT # 5.8 K/uL (1.8-7.0); NEUT % 70.1 % (50.0-75.0); NRBC % 0.1 % (0.0-0.0); RBC 3.88 Mil/uL (3.80-5.20); RED CELL DISTRIBUTION WIDTH 13.4 % (11.5-14.5); WHITE BLOOD COUNT 8.2 K/uL (4.8-10.8)
[2017-10-27 01:13] LABS: ALB/GLOB RATIO 1.1 (1.0-2.1); ALBUMIN 3.8 g/dL (3.5-5.0); ALT/SGPT 30 U/L (9-52); AST/SGOT 29 U/L (14-36); BLOOD UREA NITROGEN 23 mg/dl (7-17); CALCIUM 9.8 mg/dL (8.4-10.2); GFR AFRICAN-AMERICAN > 60; GFR NON-AFRICAN AMERICAN > 60; LIPASE 119 U/L (23-300)
[2017-10-27 01:36] LABS: URINE COLOR YELLOW (YELLOW)
[2017-10-27 01:37] LABS: URINE BILIRUBIN NEGATIVE (NEGATIVE); URINE BLOOD NEGATIVE (NEGATIVE); URINE CLARITY CLEAR (Clear); URINE GLUCOSE (UA) >=500 mg/dL (Normal); URINE PROTEIN NEGATIVE (NEGATIVE)
[2017-10-27 01:38] LABS: SQUAMOUS EPITHIAL < 1 /hpf (0-5); URINE LEUKOCYTE ESTERASE NEGATIVE Leu/uL (Negative); URINE UROBILINOGEN 0.2-1.0 mg/dL (0.2-1.0)
[2017-10-27 04:41] VITALS: BP 125/74; PULSE 74; RESP 18; TEMP 98.1; O2SAT 99
--- NOTE | 2017-10-27 11:38 | CARD ---
APPROVED REPORT EKG Measurement Heart [id number] <Conclusion> Normal sinus rhythm Normal ECG
== END 2017-10-27 04:05 | disposition home or self-care (01) ==
LOC: H.ER 23:47
DX: E11.65 Type 2 diabetes mellitus with hyperglycemia (principal); I10 Essential (primary) hypertension

== ENCOUNTER 2018-01-20 09:28 | Inpatient (IN) | payer OTHER ==
[2018-01-20] MEDS ORDERED: Sodium Chloride 0.9% 500 ML IV STA (10:25)
--- NOTE | 2018-01-20 10:36 | ED PDOC ---
HPI: General Adult <Sejal Cope Y - Last Filed: 01/20/18 15:33> Chief Complaint (Provider): Fever History Per: Patient, Family, [employer] History/Exam Limitations: no limitations <Jacy Fulton - Last Filed: 01/21/18 15:08> Time Seen by Provider: 01/20/18 10:04 Chief Complaint (Nursing): Fever Additional Complaint(s): Pt reports ALCAZAR and R leg pain that started after trip and fall on street 1 week ago, hit head on wall, no LOC. Also c/o fever that started yesterday, did not take any medications, associated with dysuria. Denies neck stiffness, sore throat, cough, nausea, vomiting, diarrhea. (DonaldoKatlina Nora) Past Medical History <Sejal Cope Y - Last Filed: 01/20/18 15:33> Reviewed: Nursing Documentation, Vital Signs - Medical History PMH: Diabetes, HTN, Hypercholesterolemia, Pancreatitis Denies: HIV, Chronic Kidney Disease - Surgical History Surgical History: Cholecystectomy - Family History Family History: States: Unknown Family Hx - Living Arrangements Living Arrangements: With Family - Social History Current smoker - smoking cessation education provided: No Alcohol: None <Jacy Fulton - Last Filed: 01/21/18 15:08> Vital Signs: Last Vital Signs Temp 97.9 F 01/21/18 08:08 Pulse 101 H 01/21/18 09:41 Resp 20 01/21/18 08:08 BP 110/62 01/21/18 09:41 Pulse Ox 94 L 01/21/18 08:08 - Home Medications Home Medications: Ambulatory Orders Medication Instructions Recorded Lisinopril [Zestril] 5 mg PO DAILY 10/08/16 Metformin HCl [Glucophage] 1,000 mg PO BID 10/08/16 Simvastatin [Zocor] 40 mg PO DAILY 10/08/16 Aspirin [Ecotrin] 81 mg PO DAILY 01/20/18 - Allergies Allergies/Adverse Reactions: Allergies Allergy/AdvReac Type Severity Reaction Status Date / Time No Known Allergies Allergy Verified 10/26/17 23:54 Review of Systems Constitutional: Positive for: Fever, Chills Eyes: Negative for: Vision Change, Eyelid Inflammation ENT: Negative for: Ear Pain, Ear Discharge, Nose Pain, Nose Discharge, Nose Congestion, Mouth Pain, Mouth Swelling, Throat Pain, Throat Swelling Cardiovascular: Negative for: Chest Pain, Palpitations Respiratory: Negative for: Cough, Hemoptysis Gastrointestinal: Negative for: Nausea, Vomiting, Abdominal Pain, Diarrhea Genitourinary Female: Positive for: Dysuria. Negative for: Hematuria, Vaginal Discharge, Vaginal Bleeding, Pelvic Pain Musculoskeletal: Positive for: Back Pain (Chronic). Negative for: Neck Pain Skin: Negative for: Rash, Lesions Neurological: Positive for: Headache. Negative for: Weakness, Numbness, Incoordination, Change in Speech, Confusion, Seizures, Altered Mental Status, Dizziness <Jacy Fulton F - Last Filed: 01/21/18 15:08> Physical Exam - Reviewed Nursing Documentation Reviewed: Yes Vital Signs Reviewed: Yes - Physical Exam Appears: Positive for: Uncomfortable Head Exam: Positive for: ATRAUMATIC, NORMAL INSPECTION Skin: Positive for: Normal Color, Warm, Dry Eye Exam: Positive for: Normal appearance, EOMI, PERRL ENT: Positive for: Pharynx Is (Clear). Negative for: Nasal Congestion, Pharyngeal Erythema, Tonsillar Exudate, Tonsillar Swelling Neck: Positive for: Normal, Painless ROM, Supple Cardiovascular/Chest: Positive for: Regular Rate, Rhythm Respiratory: Positive for: Normal Breath Sounds. Negative for: Rales, Rhonchi, Wheezing Gastrointestinal/Abdominal: Positive for: Bowel Sounds, Soft, Tenderness (LLQ). Negative for: Distended, Guarding, Rebound Back: Positive for: Normal Inspection. Negative for: L CVA Tenderness, R CVA Tenderness Extremity: Positive for: Normal ROM, Tenderness (Minimal L lateral thigh), Swelling (Minimal hematoma), Other (FROM @ hip, no pain on pelvic rocking ). Negative for: Deformity Neurologic/Psych: Positive for: Alert, Oriented <Jacy Fulton F - Last Filed: 01/21/18 15:08> - Laboratory Results Result Diagrams: 01/20/18 11:05 01/20/18 11:05 <Sejal Cope - Last Filed: 01/20/18 15:33> - Laboratory Results Result Diagrams: 01/21/18 06:40 01/21/18 06:40 - ECG O2 Sat by Pulse Oximetry: 96 - Critical Care Total Time (In Min): 45 <Jacy Fulton - Last Filed: 01/21/18 15:08> Medical Decision Making <Sejal Cope Y - Last Filed: 01/20/18 15:33> <Jacy Fulton F - Last Filed: 01/21/18 15:08> Medical Decision Making: Time; 10:30 72 yo female with head and RLE pain s/p fall and fever. - labs - EKG - CXR - CT head - IVF - Motrin - Tylenol Head CT FINDINGS: HEMORRHAGE: No intracranial hemorrhage. BRAIN: No evidence of large acute infarct. Questionable few tiny chronic bilateral basal nuclei lacunar type infarcts. Ventricular and sulcal size are within range of normal for this patient's stated age VENTRICLES: No obstructive hydrocephalus. CALVARIUM: Unremarkable. PARANASAL SINUSES: Unremarkable as visualized. No significant inflammatory changes. MASTOID AIR CELLS: Unremarkable as visualized. No inflammatory changes. OTHER FINDINGS: None. IMPRESSION: No evidence of acute intracranial hemorrhage or infarct. Questionable few chronic bilateral basal nuclei lacunar type infarcts. Abd pelvis CT FINDINGS: LOWER THORAX: Minor bibasilar passive/dependent type atelectasis both lung bases. Minor scarring in the lingular and middle lobe regions as well. . No evidence of effusion or basilar pneumothorax. Heart size is enlarged. No significant pericardial effusion. Tiny hiatal hernia. LIVER: Liver is upper limits of normal measuring over 18 cm in CC dimension. Minor fatty hepatic infiltration. No obvious hepatic mass collection or calcification. Portal and splenic veins are opacified. GALLBLADDER AND BILE DUCTS: Cholecystectomy PANCREAS: Pancreas is atrophic fatty replaced. . There is a well-circumscribed small elliptical shaped approximately 14 point 4 x 10.2 times 13 point 3 mm low- attenuation lesion within the mid to distal body of the pancreas that exhibits Hounsfield units in the ranging between mid single digits. There also appears to be a tiny calcification along the inferior margin of this low-attenuation lesion. . The lesion is of uncertain etiology though could represent a pseudocyst possibility of a cystic neoplasm not excluded. . Followup the CT scan at interval could be performed to assess stability. Clinical correlation with GI consultation recommended for further evaluation. SPLEEN: The spleen exhibits normal size and attenuation pattern. No masses collections or calcifications. ADRENALS: There are no adrenal lesions KIDNEYS AND URETERS: Kidneys demonstrate symmetric nephrograms. No evidence of nephrolithiasis or hydronephrosis. No obvious renal mass or collection. VASCULATURE: Unremarkable. No aortic aneurysm. BOWEL: Evaluation of the bowel is limited due to the lack of oral contrast material. The stomach is incompletely distended which presumably accounts for thick- walled appearance. Visualized loops of small bowel exhibit normal contour and caliber. No evidence of acute mechanical small bowel obstruction. There there is fecalized content within the distal small bowel suggesting stasis. Note made of a few loops of proximal small bowel left mid abdomen which exhibit questionable mild wall thickening. Rule out enteritis. . Stool and air seen throughout the large bowel suggesting mild fecal retention. No definitive mural wall thickening of the colon. . APPENDIX: What may represent a short but normal-appearing appendix seen on coronal image number [id number] and axial image number [id number]. No periappendiceal inflammatory changes. PERITONEUM: Unremarkable. No free fluid. No free air. Small fat containing bilateral inguinal hernias are present left slightly larger than right. LYMPH NODES: Multiple small nonspecific retroperitoneal lymph nodes are noted. . BLADDER: Urinary bladder is incompletely distended which in part accounts for thick- walled appearance however cystitis must be excluded. Correlation urinalysis. REPRODUCTIVE: Uterus unremarkable aside from what probably represents some myometrial vascular calcifications. BONES: Mild multilevel degenerative spondylosis of the lower thoracic and lumbar spine. No acute compression fractures no retropulsed fragments. OTHER FINDINGS: None. IMPRESSION: Liver is upper limits of normal. Mild fatty hepatic infiltration. Cholecystectomy. There is a small cystic lesion within the mid body of the pancreas of uncertain etiology. Rule out pseudocyst versus cystic neoplasm. GI consultation suggested. Note made of a few loops of proximal small bowel left mid abdomen which exhibit questionable mild wall thickening. Rule out enteritis. Findings consistent with mild fecal retention/constipation as described above. Urinary bladder wall thickening likely due to incomplete distention however correlation with urinalysis recommended to exclude the possibility of a cystitis Time; 13:51 Patient will be admitted to inpatient care. Admitting diagnoses are enteritis and SIRS. ---- Scribe Attestation: Documented by Molly Leija, acting as a scribe for Jacy Fulton MD Provider Scribe Attestation: All medical record entries made by the Scribe were at my direction and personally dictated by me. I have reviewed the chart and agree that the record accurately reflects my personal performance of the history, physical exam, medical decision making, and the department course for this patient. I have also personally directed, reviewed, and agree with the discharge instructions and disposition. (Jacy Fulton) Procedures <Sejal Cope - Last Filed: 01/20/18 15:33> - Additional Procedures Additional Procedures: lumbar puncture <Jacy Fulton - Last Filed: 01/21/18 15:08> - Additional Procedures Progress: Patient tolerated procedure well. (Jacy Fulton) Disposition <Sejal Cope - Last Filed: 01/20/18 15:33> - Patient ED Disposition Is Patient to be Admitted: Yes - Disposition Disposition Time: 13:51 - Pt Status Changed To: Hospital Disposition Of: Inpatient - Admit Certification Admit to Inpatient:: After my assessment, the patient will require hospitalization for at least two midnights. This is because of the severity of symptoms shown, intensity of services needed, and/or the medical risk in this patient being treated as an outpatient. - POA Present On Arrival: Falls Or Trauma <Jacy Fulton - Last Filed: 01/21/18 15:08> - Clinical Impression Clinical Impression: Fever in adult - Disposition Condition: STABLE
[2018-01-20 11:24] LABS: BASO # 0.1 K/uL (0.0-0.2); BASO % 0.4 % (0.0-2.0); EOS # 0.1 K/uL (0.0-0.7); EOS % 0.5 % (0.0-4.0); HEMOGLOBIN 12.4 g/dL (12.0-16.0); LYMPH # 0.6 K/uL (1.0-4.3); LYMPH % 3.3 % (20.0-40.0); MEAN CELL VOLUME 94.9 fl (81.0-99.0); MEAN CORPUSCULAR HEMOGLOBIN 31.6 pg (27.0-31.0); MEAN CORPUSCULAR HGB CONC 33.3 g/dL (33.0-37.0); MEAN PLATELET VOLUME 8.6 fl (7.2-11.7); MONO # 0.9 K/uL (0.0-0.8); MONO % 4.5 % (0.0-10.0); NEUT # 17.7 K/uL (1.8-7.0); NEUT % 91.3 % (50.0-75.0); PLATELET COUNT 222 K/uL (130-400); RBC 3.93 Mil/uL (3.80-5.20); RED CELL DISTRIBUTION WIDTH 13.3 % (11.5-14.5); WHITE BLOOD COUNT 19.4 K/uL (4.8-10.8)
[2018-01-20 11:26] LABS: VENOUS BLOOD GAS BASE EXCESS 4.4 mmol/L (0.0-2.0); VENOUS BLOOD GAS PCO2 43 mmHg (40-60); VENOUS BLOOD GAS PO2 46 mm/Hg (30-55); VENOUS BLOOD PH 7.44 (7.32-7.43)
[2018-01-20 11:42] LABS: PARTIAL THROMBOPLASTIN TIME 32.1 Seconds (25.6-37.1); PROTHROMBIN TIME 11.5 Seconds (9.8-13.1)
[2018-01-20 11:43] LABS: ALB/GLOB RATIO 1.1 (1.0-2.1); ALT/SGPT 30 U/L (9-52); AST/SGOT 45 U/L (14-36); BLOOD UREA NITROGEN 17 mg/dl (7-17); CALCIUM 9.3 mg/dL (8.4-10.2); GFR AFRICAN-AMERICAN > 60; GFR NON-AFRICAN AMERICAN > 60
[2018-01-20] MEDS ORDERED: Iohexol 300 100 ML IJ ONE (11:46)
[2018-01-20 11:47] LABS: URINE BACTERIA RARE (<OCC); URINE BILIRUBIN NEGATIVE (NEGATIVE); URINE BLOOD NEGATIVE (NEGATIVE); URINE CLARITY SLIGHTY-CLOUDY (Clear); URINE COLOR YELLOW (YELLOW); URINE GLUCOSE (UA) 50 mg/dL (Normal); URINE LEUKOCYTE ESTERASE NEG Leu/uL (Negative); URINE PROTEIN NEGATIVE (NEGATIVE); URINE UROBILINOGEN 0.2-1.0 mg/dL (0.2-1.0)
[2018-01-20] MEDS ORDERED: Sodium Chloride 0.9% 50 ML IV ONE (11:47)
--- NOTE | 2018-01-20 12:34 | CT ---
Date of service: 01/20/2018 PROCEDURE: CT HEAD WITHOUT CONTRAST. HISTORY: ALCAZAR COMPARISON: Comparison made with CT scan brain dated 05/07/2014 TECHNIQUE: Axial computed tomography images were obtained through the head/brain without intravenous contrast. Radiation dose: Total exam DLP = 1052.87 mGy-cm. This CT exam was performed using one or more of the following dose reduction techniques: Automated exposure control, adjustment of the mA and/or kV according to patient size, and/or use of iterative reconstruction technique. FINDINGS: HEMORRHAGE: No intracranial hemorrhage. BRAIN: No evidence of large acute infarct. Questionable few tiny chronic bilateral basal nuclei lacunar type infarcts. Ventricular and sulcal size are within range of normal for this patient's stated age VENTRICLES: No obstructive hydrocephalus. CALVARIUM: Unremarkable. PARANASAL SINUSES: Unremarkable as visualized. No significant inflammatory changes. MASTOID AIR CELLS: Unremarkable as visualized. No inflammatory changes. OTHER FINDINGS: None. IMPRESSION: No evidence of acute intracranial hemorrhage or infarct. Questionable few chronic bilateral basal nuclei lacunar type infarcts.
--- NOTE | 2018-01-20 12:55 | CT ---
Date of service: 01/20/2018 PROCEDURE: CT Abdomen and Pelvis with contrast HISTORY: LLQ pain, fever COMPARISON: None. TECHNIQUE: Contrast dose: 95 cc Omnipaque 300 Radiation dose: Total exam DLP = 676.38 mGy-cm. This CT exam was performed using one or more of the following dose reduction techniques: Automated exposure control, adjustment of the mA and/or kV according to patient size, and/or use of iterative reconstruction technique. . FINDINGS: LOWER THORAX: Minor bibasilar passive/dependent type atelectasis both lung bases. Minor scarring in the lingular and middle lobe regions as well. . No evidence of effusion or basilar pneumothorax. Heart size is enlarged. No significant pericardial effusion. Tiny hiatal hernia. LIVER: Liver is upper limits of normal measuring over 18 cm in CC dimension. Minor fatty hepatic infiltration. No obvious hepatic mass collection or calcification. Portal and splenic veins are opacified. GALLBLADDER AND BILE DUCTS: Cholecystectomy PANCREAS: Pancreas is atrophic fatty replaced. . There is a well-circumscribed small elliptical shaped approximately 14 point 4 x 10.2 times 13 point 3 mm low-attenuation lesion within the mid to distal body of the pancreas that exhibits Hounsfield units in the ranging between mid single digits. There also appears to be a tiny calcification along the inferior margin of this low-attenuation lesion. . The lesion is of uncertain etiology though could represent a pseudocyst possibility of a cystic neoplasm not excluded. . Followup the CT scan at interval could be performed to assess stability. Clinical correlation with GI consultation recommended for further evaluation. SPLEEN: The spleen exhibits normal size and attenuation pattern. No masses collections or calcifications. ADRENALS: There are no adrenal lesions KIDNEYS AND URETERS: Kidneys demonstrate symmetric nephrograms. No evidence of nephrolithiasis or hydronephrosis. No obvious renal mass or collection. VASCULATURE: Unremarkable. No aortic aneurysm. BOWEL: Evaluation of the bowel is limited due to the lack of oral contrast material. The stomach is incompletely distended which presumably accounts for thick-walled appearance. Visualized loops of small bowel exhibit normal contour and caliber. No evidence of acute mechanical small bowel obstruction. There there is fecalized content within the distal small bowel suggesting stasis. Note made of a few loops of proximal small bowel left mid abdomen which exhibit questionable mild wall thickening. Rule out enteritis. . Stool and air seen throughout the large bowel suggesting mild fecal retention. No definitive mural wall thickening of the colon. . APPENDIX: What may represent a short but normal-appearing appendix seen on coronal image number [id number] and axial image number [id number]. No periappendiceal inflammatory changes. PERITONEUM: Unremarkable. No free fluid. No free air. Small fat containing bilateral inguinal hernias are present left slightly larger than right. LYMPH NODES: Multiple small nonspecific retroperitoneal lymph nodes are noted. . BLADDER: Urinary bladder is incompletely distended which in part accounts for thick-walled appearance however cystitis must be excluded. Correlation urinalysis. REPRODUCTIVE: Uterus unremarkable aside from what probably represents some myometrial vascular calcifications. BONES: Mild multilevel degenerative spondylosis of the lower thoracic and lumbar spine. No acute compression fractures no retropulsed fragments. OTHER FINDINGS: None. IMPRESSION: Liver is upper limits of normal. Mild fatty hepatic infiltration. Cholecystectomy. There is a small cystic lesion within the mid body of the pancreas of uncertain etiology. Rule out pseudocyst versus cystic neoplasm. GI consultation suggested. Note made of a few loops of proximal small bowel left mid abdomen which exhibit questionable mild wall thickening. Rule out enteritis. Findings consistent with mild fecal retention/constipation as described above. Urinary bladder wall thickening likely due to incomplete distention however correlation with urinalysis recommended to exclude the possibility of a cystitis
[2018-01-20 13:17] LABS: BANDS 3 % (0-2); EOSINOPHIL 1 % (0-7); LYMPHOCYTE 2 % (20-50); MONOCYTE 4 % (0-10); NEUTROPHIL 90 % (42-75); PLATELET ESTIMATE NORMAL (NORMAL); TOTAL CELLS COUNTED 100
[2018-01-20] MEDS ORDERED: metroNIDAZOLE 500mg/100ml NS 100 ML IV STA (13:49)
[2018-01-20] MEDS ORDERED: Ciprofloxacin 400mg/200ml D5W 400 MG/200 ML BAG IV STA (13:49)
--- NOTE | 2018-01-20 14:43 | CP.PCM.HP ---
History of Present Illness - History of Present Illness History of Present Illness: 72 yo female with history of DM2 and HTN brought by family because of fever and chills since yesterday. The only accompanying symptoms were headache and right thigh pain probably associated with a fall last week. Denied abdominal pain, nausea/vomiting or diarrhea. Also denied dysuria, coughing, chest pain or SOB. Present on Admission - Present on Admission Any Indicators Present on Admission: No History of DVT/PE: No History of Uncontrolled Diabetes: No Urinary Catheter: No Decubitus Ulcer Present: No Review of Systems - Review of Systems All systems: reviewed and no additional remarkable complaints except (aside from those mentioned above, 12 point system review were negative by me) Past Patient History - Tetanus Immunizations Tetanus Immunization: Unknown - Past Medical History & Family History Past Medical History?: Yes - Past Social History Smoking Status: Never Smoked Chewing Tobacco Use: No Cigar Use: No Alcohol: None Drugs: Denies Home Situation {Lives}: With Family - CARDIAC Hx Hypercholesterolemia: Yes Hx Hypertension: Yes - PULMONARY Hx Respiratory Disorders: No - NEUROLOGICAL Hx Neurological Disorder: No - HEENT Hx HEENT Problems: No - RENAL Hx Chronic Kidney Disease: No - ENDOCRINE/METABOLIC Hx Endocrine Disorders: Yes Hx Diabetes Mellitus Type 2: Yes - HEMATOLOGICAL/ONCOLOGICAL Hx Human Immunodeficiency Virus (HIV): No - INTEGUMENTARY Hx Dermatological Problems: No - MUSCULOSKELETAL/RHEUMATOLOGICAL Hx Musculoskeletal Disorders: No - GASTROINTESTINAL Hx Pancreatitis: Yes - GENITOURINARY/GYNECOLOGICAL Hx Genitourinary Disorders: Yes Hx Uterine Cancer: Yes (treated with Radiation and chemo 13 yrs ago) Other/Comment: Hx cystitis - PSYCHIATRIC Hx Psychophysiologic Disorder: No Hx Substance Use: No - SURGICAL HISTORY Hx Cholecystectomy: Yes - ANESTHESIA Hx Anesthesia: Yes Hx Anesthesia Reactions: No Hx Malignant Hyperthermia: No Meds Allergies/Adverse Reactions: Allergies Allergy/AdvReac Type Severity Reaction Status Date / Time No Known Allergies Allergy Verified 10/26/17 23:54 Physical Exam - Constitutional Appears: No Acute Distress - Head Exam Head Exam: ATRAUMATIC - Eye Exam Eye Exam: PERRL. absent: Scleral icterus - ENT Exam ENT Exam: Mucous Membranes Moist - Neck Exam Neck exam: Negative for: Meningismus - Respiratory Exam Respiratory Exam: absent: Rales, Rhonchi, Wheezes, Respiratory Distress - Cardiovascular Exam Cardiovascular Exam: REGULAR RHYTHM, +S1, +S2 - GI/Abdominal Exam GI & Abdominal Exam: Soft. absent: Tenderness - Extremities Exam Extremities exam: Positive for: normal inspection (there is no bruising, swelling or tenderness on right thigh or any other limbs) Results - Vital Signs Recent Vital Signs: Last Vital Signs Temp 101.6 F H 01/20/18 09:35 Pulse 104 H 01/20/18 09:35 Resp BP 148/80 01/20/18 09:35 Pulse Ox 96 01/20/18 10:56 - Labs Result Diagrams: 01/20/18 11:05 01/20/18 11:05 Labs: Laboratory Results - last 24 hr 01/20/18 01/20/18 01/20/18 11:05 11:05 11:05 WBC 19.4 H D RBC 3.93 Hgb 12.4 Hct 37.3 MCV 94.9 MCH 31.6 H MCHC 33.3 RDW 13.3 Plt Count 222 MPV 8.6 Neut % (Auto) 91.3 H Lymph % (Auto) 3.[address] [place] % (Auto) 4.5 Eos % (Auto) 0.5 Baso % (Auto) 0.4 Neut # (Auto) 17.7 H Lymph # (Auto) 0.[address] [place] # (Auto) 0.9 H Eos # (Auto) 0.1 Baso # (Auto) 0.1 Neutrophils % (Manual) 90 H Band Neutrophils % 3 H Lymphocytes % (Manual) 2 L Monocytes % (Manual) 4 Eosinophils % (Manual) 1 Platelet Estimate Normal RBC Morphology Normal PT 11.5 INR 1.0 APTT 32.1 pO2 VBG pH VBG pCO2 VBG HCO3 VBG Total CO2 VBG O2 Sat (Calc) VBG Base Excess VBG Potassium Glucose Lactate FiO2 Sodium 139 Potassium 3.7 Chloride 102 Carbon Dioxide 26 Anion Gap 15 BUN 17 Creatinine 0.6 L Est GFR ( Amer) > 60 Est GFR (Non-Af Amer) > 60 POC Glucose (mg/dL) Random Glucose 144 H Calcium 9.3 Phosphorus 2.4 L Magnesium 1.6 Total Bilirubin 0.6 AST 45 H D ALT 30 Alkaline Phosphatase 82 Total Protein 7.5 Albumin 4.0 Globulin 3.5 Albumin/Globulin Ratio 1.1 Venous Blood Potassium Urine Color Urine Clarity Urine pH Ur Specific [place] Urine Protein Urine Glucose (UA) Urine Ketones Urine Blood Urine Nitrate Urine Bilirubin Urine Urobilinogen Ur Leukocyte Esterase Urine RBC (Auto) Urine Microscopic WBC Urine Bacteria 01/20/18 01/20/18 01/20/18 11:15 11:22 11:35 WBC RBC Hgb Hct MCV MCH MCHC RDW Plt Count MPV Neut % (Auto) Lymph % (Auto) [place] % (Auto) Eos % (Auto) Baso % (Auto) Neut # (Auto) Lymph # (Auto) [place] # (Auto) Eos # (Auto) Baso # (Auto) Neutrophils % (Manual) Band Neutrophils % Lymphocytes % (Manual) Monocytes % (Manual) Eosinophils % (Manual) Platelet Estimate RBC Morphology PT INR APTT pO2 46 VBG pH 7.44 H VBG pCO2 43 VBG HCO3 28.0 VBG Total CO2 30.5 H VBG O2 Sat (Calc) 89.0 H VBG Base Excess 4.4 H VBG Potassium 3.4 L Glucose 151 H Lactate 1.9 FiO2 21.0 Sodium 135.0 Potassium Chloride 102.0 Carbon Dioxide Anion Gap BUN Creatinine Est GFR ( Amer) Est GFR (Non-Af Amer) POC Glucose (mg/dL) 139 H Random Glucose Calcium Phosphorus Magnesium Total Bilirubin AST ALT Alkaline Phosphatase Total Protein Albumin Globulin Albumin/Globulin Ratio Venous Blood Potassium 3.4 L Urine Color Yellow Urine Clarity Slighty-cloudy Urine pH 7.0 Ur Specific [place] 1.016 Urine Protein Negative Urine Glucose (UA) 50 Urine Ketones Negative Urine Blood Negative Urine Nitrate Negative Urine Bilirubin Negative Urine Urobilinogen 0.2-1.0 Ur Leukocyte Esterase Neg Urine RBC (Auto) 3 Urine Microscopic WBC < 1 Urine Bacteria Rare Assessment & Plan - Assessment and Plan (Free Text) Assessment: 72 yo female with history of DM2 and HTN brought by family because of fever and chills since yesterday. The only accompanying symptoms were headache and right thigh pain probably associated with a fall last week. Denied abdominal pain, nausea/vomiting or diarrhea. Also denied dysuria, coughing, chest pain or SOB. 1. Fever of Unknown Origin CT scan of abdomen: thick walled on stomach, small intestine and urinary bladder ??? patient did not have abdominal issue nor urinary problem CXray: did not show any infiltrate blood and urine culture ID consult with Dr Davalos LP done with clear CSF with elevated total cell ct of 22, neutrophil - 1; lymphocytes - 16; monos - 1 continue IV Acyclovir, Vanco and Ceftriaxone
--- NOTE | 2018-01-20 14:50 | RAD ---
Date of service: 01/20/2018 HISTORY: Sepsis Patient COMPARISON: She 10/07/2016 FINDINGS: LUNGS: No active pulmonary disease. PLEURA: No significant pleural effusion identified, no pneumothorax apparent. CARDIOVASCULAR: Cardiomegaly. No evidence of acute, significant cardiovascular disease. OSSEOUS STRUCTURES: No significant abnormalities. VISUALIZED UPPER ABDOMEN: Normal. OTHER FINDINGS: Central hilar fullness likely vascular. IMPRESSION: No active disease. No significant interval change compared to the prior examination(s).
[2018-01-20] MEDS ORDERED: Dexamethasone 10 MG in Sodium Chloride 0.9% 50 ML IV STA (15:29)
[2018-01-20 16:31] LABS: FLUID TYPE SPINAL FLUID
[2018-01-20 17:29] LABS: CSF APPEARANCE CLEAR/COLORLESS (CLEAR); CSF VOLUME 1 mL (0-1)
[2018-01-20 17:30] LABS: CSF MONO/MACROPHAGE 1 % (0-0)
--- NOTE | 2018-01-20 18:47 | US ---
Date of service: 01/20/2018 PROCEDURE: Right lower extremity venous duplex Doppler. HISTORY: pain on right thigh COMPARISON: None available. TECHNIQUE: Common femoral, superficial femoral, popliteal and posterior tibial veins were evaluated. Flow was assessed with color Doppler, compressibility, assessment of phasic flow and augmentation response. FINDINGS: COMMON FEMORAL VEIN: Unremarkable. SUPERFICIAL FEMORAL VEIN: Unremarkable. POPLITEAL VEIN: Unremarkable. POSTERIOR TIBIAL VEIN: Unremarkable. OTHER FINDINGS: None. IMPRESSION: No evidence of deep venous thrombosis in the right lower extremity.
[2018-01-20] MEDS: Sodium Chloride 0.9% 1,000 ML IV SCH (18:54)
[2018-01-21] MEDS: Acyclovir 500 MG in Sodium Chloride 0.9% 100 ML IVPB SCH ×3 (01:30→17:27)
[2018-01-21 06:57] LABS: BASO % 0.1 % (0.0-2.0); LYMPH # 0.5 K/uL (1.0-4.3); LYMPH % 2.6 % (20.0-40.0); MEAN CELL VOLUME 95.1 fl (81.0-99.0); MEAN CORPUSCULAR HEMOGLOBIN 31.8 pg (27.0-31.0); MEAN CORPUSCULAR HGB CONC 33.4 g/dL (33.0-37.0); MEAN PLATELET VOLUME 8.9 fl (7.2-11.7); MONO # 0.2 K/uL (0.0-0.8); MONO % 1.3 % (0.0-10.0); NEUT # 17.5 K/uL (1.8-7.0); NRBC % 0.1 % (0.0-0.0); PLATELET COUNT 234 K/uL (130-400); RBC 3.79 Mil/uL (3.80-5.20); RED CELL DISTRIBUTION WIDTH 13.4 % (11.5-14.5); WHITE BLOOD COUNT 18.2 K/uL (4.8-10.8)
[2018-01-21 07:13] LABS: BLOOD UREA NITROGEN 18 mg/dl (7-17); GFR AFRICAN-AMERICAN > 60; GFR NON-AFRICAN AMERICAN > 60
[2018-01-21] MEDS: Enoxaparin 40 mg Syringe SC SCH (09:25)
[2018-01-21] MEDS: Pantoprazole 40 mg EC Tab PO SCH (09:27)
[2018-01-21 09:45] LABS: BANDS 2 % (0-2); LYMPHOCYTE 3 % (20-50); MONOCYTE 1 % (0-10); NEUTROPHIL 94 % (42-75); PLATELET ESTIMATE NORMAL (NORMAL); TOTAL CELLS COUNTED 100
--- NOTE | 2018-01-21 11:00 | RAD ---
Date of service: 01/20/2018 PROCEDURE: HISTORY: pain on right thigh COMPARISON: None TECHNIQUE: AP and oblique lateral views obtained FINDINGS: No fracture or lytic lesion. Right hip and right knee arthrosis present IMPRESSION: No fracture or lytic lesion. Right hip and right knee arthrosis present
--- NOTE | 2018-01-21 11:13 | CP.PCM.CON ---
History of Present Illness - History of Present Illness History of Present Illness: Infectious disease Consultation Note- Asked to see this patient at the request of the hospitalist for fever . HPI- Pt. is a 72 year old female with PMH of HTN and DM II, who was brought in by her family to be evaluated because of c/o chills and ALCAZAR. pt. had LP done in ED but wbc cell count is 1 and not c/w meningitis. pt. states she feels well and wants to go home. She denies any further ALCAZAR, denies any fever or chills today, denies nay cough or sob, denies any chest pain, denies any abd. pain,d enies any nausea or vomiting, denies any dysurea, denies any diarrhea. denies any recent travel denies any sick contacts. Review of Systems - Review of Systems Review of Systems: ROS- had chills yesterday but denies any chills or any fever today, denies any ALCAZAR today, denies any neck pain, denies any cough or sob, denies any ricky pain, denies any abd. pain, denies any dysurea, denies any diarrhea. Past Patient History - Tetanus Immunizations Tetanus Immunization: Unknown - Past Medical History & Family History Past Medical History?: Yes - Past Social History Smoking Status: Never Smoked Chewing Tobacco Use: No Cigar Use: No Alcohol: None Drugs: Denies Home Situation {Lives}: With Family - CARDIAC Hx Hypercholesterolemia: Yes Hx Hypertension: Yes - PULMONARY Hx Respiratory Disorders: No - NEUROLOGICAL Hx Neurological Disorder: No - HEENT Hx HEENT Problems: No - RENAL Hx Chronic Kidney Disease: No - ENDOCRINE/METABOLIC Hx Endocrine Disorders: Yes Hx Diabetes Mellitus Type 2: Yes - HEMATOLOGICAL/ONCOLOGICAL Hx Blood Disorders: No - INTEGUMENTARY Hx Dermatological Problems: No - MUSCULOSKELETAL/RHEUMATOLOGICAL Hx Musculoskeletal Disorders: No - GASTROINTESTINAL Hx Pancreatitis: Yes - GENITOURINARY/GYNECOLOGICAL Hx Genitourinary Disorders: Yes Hx Uterine Cancer: Yes (treated with Radiation and chemo 13 yrs ago) Other/Comment: Hx cystitis - PSYCHIATRIC Hx Psychophysiologic Disorder: No Hx Substance Use: No - SURGICAL HISTORY Hx Cholecystectomy: Yes - ANESTHESIA Hx Anesthesia: Yes Hx Anesthesia Reactions: No Hx Malignant Hyperthermia: No Meds Allergies/Adverse Reactions: Allergies Allergy/AdvReac Type Severity Reaction Status Date / Time No Known Allergies Allergy Verified 10/26/17 23:54 - Medications Medications: Current Medications Acetaminophen (Tylenol 325mg Tab) 650 mg PO Q6 PRN PRN Reason: Pain, Mild (1-3) Acetaminophen (Tylenol 325mg Tab) 650 mg PO Q6 PRN PRN Reason: Fever >100.4 F Aspirin (Ecotrin) 81 mg PO DAILY [facility] Last Admin: 01/21/18 09:25 Dose: 81 mg Atorvastatin Calcium (Lipitor) 20 mg PO DAILY [facility] Last Admin: 01/21/18 09:25 Dose: 20 mg Docusate Sodium (Colace) 100 mg PO BID [facility] Last Admin: 01/21/18 09:24 Dose: 100 mg Enoxaparin Sodium (Lovenox) 40 mg SC DAILY [facility] PRN Reason: Protocol Last Admin: 01/21/18 09:25 Dose: 40 mg Sodium Chloride (Sodium Chloride 0.9%) 1,000 mls @ 100 mls/hr IV .Q10H [facility] Last Admin: 01/20/18 18:54 Dose: 100 mls/hr Vancomycin HCl 1 gm/ Sodium (Chloride) 250 mls @ 166.667 mls/hr IVPB Q12 [facility] PRN Reason: Protocol Last Admin: 01/21/18 09:40 Dose: 166.667 mls/hr Ceftriaxone Sodium 1 gm/ (Sodium Chloride) 100 mls @ 100 mls/hr IVPB DAILY [facility] PRN Reason: Protocol Last Admin: 01/21/18 09:27 Dose: 100 mls/hr Acyclovir 500 mg/ Sodium (Chloride) 100 mls @ 100 mls/hr IVPB Q8 [facility] PRN Reason: Protocol Last Admin: 01/21/18 09:42 Dose: 100 mls/hr Lisinopril (Zestril) 5 mg PO DAILY [facility] Last Admin: 01/21/18 09:41 Dose: 5 mg Metformin HCl (Glucophage) 1,000 mg PO BID [facility] Last Admin: 01/21/18 09:25 Dose: 1,000 mg Pantoprazole Sodium (Protonix Ec Tab) 40 mg PO DAILY [facility] Last Admin: 01/21/18 09:27 Dose: 40 mg Physical Exam - Constitutional Appears: No Acute Distress - Head Exam Head Exam: ATRAUMATIC - Eye Exam Eye Exam: EOMI - ENT Exam ENT Exam: Normal Oropharynx - Neck Exam Neck exam: Positive for: Full Rom Additional comments: supple - Respiratory Exam Respiratory Exam: NORMAL BREATHING PATTERN Additional comments: no wheezing slightly decreased breath sounds at right base - Cardiovascular Exam Cardiovascular Exam: RRR, +S1, +S2 - Extremities Exam Extremities exam: Positive for: normal inspection - Neurological Exam Neurological exam: Alert, Oriented x3 Results - Vital Signs Recent Vital Signs: Last Vital Signs Temp 97.9 F 01/21/18 08:08 Pulse 101 H 01/21/18 09:41 Resp 20 01/21/18 08:08 BP 110/62 01/21/18 09:41 Pulse Ox 94 L 01/21/18 08:08 - Labs Result Diagrams: 01/21/18 06:40 01/21/18 06:40 Labs: Laboratory Results - last 24 hr 01/20/18 01/20/18 01/20/18 11:05 11:05 11:05 WBC 19.4 H D RBC 3.93 Hgb 12.4 Hct 37.3 MCV 94.9 MCH 31.6 H MCHC 33.3 RDW 13.3 Plt Count 222 MPV 8.6 Neut % (Auto) 91.3 H Lymph % (Auto) 3.3 L Mckean % (Auto) 4.5 Eos % (Auto) 0.5 Baso % (Auto) 0.4 Neut # (Auto) 17.7 H Lymph # (Auto) 0.6 L Mckean # (Auto) 0.9 H Eos # (Auto) 0.1 Baso # (Auto) 0.1 Neutrophils % (Manual) 90 H Band Neutrophils % 3 H Lymphocytes % (Manual) 2 L Monocytes % (Manual) 4 Eosinophils % (Manual) 1 Platelet Estimate Normal RBC Morphology Normal PT 11.5 INR 1.0 APTT 32.1 D-Dimer, Quantitative pO2 VBG pH VBG pCO2 VBG HCO3 VBG Total CO2 VBG O2 Sat (Calc) VBG Base Excess VBG Potassium Glucose Lactate FiO2 Sodium 139 Potassium 3.7 Chloride 102 Carbon Dioxide 26 Anion Gap 15 BUN 17 Creatinine 0.6 L Est GFR ( Amer) > 60 Est GFR (Non-Af Amer) > 60 POC Glucose (mg/dL) Random Glucose 144 H Calcium 9.3 Phosphorus 2.4 L Magnesium 1.6 Total Bilirubin 0.6 AST 45 H D ALT 30 Alkaline Phosphatase 82 Total Protein 7.5 Albumin 4.0 Globulin 3.5 Albumin/Globulin Ratio 1.1 Venous Blood Potassium Urine Color Urine Clarity Urine pH Ur Specific [place] Urine Protein Urine Glucose (UA) Urine Ketones Urine Blood Urine Nitrate Urine Bilirubin Urine Urobilinogen Ur Leukocyte Esterase Urine RBC (Auto) Urine Microscopic WBC Urine Bacteria Fluid Type CSF Volume CSF Appearance CSF WBC CSF RBC CSF Total Cell Counted CSF Neutrophils CSF Lymphocytes CSF Monos/Macrophages CSF Comment CSF Glucose CSF Total Protein HSV Source Description 01/20/18 01/20/18 01/20/18 11:15 11:22 11:35 WBC RBC Hgb Hct MCV MCH MCHC RDW Plt Count MPV Neut % (Auto) Lymph % (Auto) Mckean % (Auto) Eos % (Auto) Baso % (Auto) Neut # (Auto) Lymph # (Auto) Mckean # (Auto) Eos # (Auto) Baso # (Auto) Neutrophils % (Manual) Band Neutrophils % Lymphocytes % (Manual) Monocytes % (Manual) Eosinophils % (Manual) Platelet Estimate RBC Morphology PT INR APTT D-Dimer, Quantitative pO2 46 VBG pH 7.44 H VBG pCO2 43 VBG HCO3 28.0 VBG Total CO2 30.5 H VBG O2 Sat (Calc) 89.0 H VBG Base Excess 4.4 H VBG Potassium 3.4 L Glucose 151 H Lactate 1.9 FiO2 21.0 Sodium 135.0 Potassium Chloride 102.0 Carbon Dioxide Anion Gap BUN Creatinine Est GFR ( Amer) Est GFR (Non-Af Amer) POC Glucose (mg/dL) 139 H Random Glucose Calcium Phosphorus Magnesium Total Bilirubin AST ALT Alkaline Phosphatase Total Protein Albumin Globulin Albumin/Globulin Ratio Venous Blood Potassium 3.4 L Urine Color Yellow Urine Clarity Slighty-cloudy Urine pH 7.0 Ur Specific [place] 1.016 Urine Protein Negative Urine Glucose (UA) 50 Urine Ketones Negative Urine Blood Negative Urine Nitrate Negative Urine Bilirubin Negative Urine Urobilinogen 0.2-1.0 Ur Leukocyte Esterase Neg Urine RBC (Auto) 3 Urine Microscopic WBC < 1 Urine Bacteria Rare Fluid Type CSF Volume CSF Appearance CSF WBC CSF RBC CSF Total Cell Counted CSF Neutrophils CSF Lymphocytes CSF Monos/Macrophages CSF Comment CSF Glucose CSF Total Protein HSV Source Description 01/20/18 01/20/18 01/20/18 16:00 16:00 16:00 WBC RBC Hgb Hct MCV MCH MCHC RDW Plt Count MPV Neut % (Auto) Lymph % (Auto) Mckean % (Auto) Eos % (Auto) Baso % (Auto) Neut # (Auto) Lymph # (Auto) Mckean # (Auto) Eos # (Auto) Baso # (Auto) Neutrophils % (Manual) Band Neutrophils % Lymphocytes % (Manual) Monocytes % (Manual) Eosinophils % (Manual) Platelet Estimate RBC Morphology PT INR APTT D-Dimer, Quantitative pO2 VBG pH VBG pCO2 VBG HCO3 VBG Total CO2 VBG O2 Sat (Calc) VBG Base Excess VBG Potassium Glucose Lactate FiO2 Sodium Potassium Chloride Carbon Dioxide Anion Gap BUN Creatinine Est GFR ( Amer) Est GFR (Non-Af Amer) POC Glucose (mg/dL) Random Glucose Calcium Phosphorus Magnesium Total Bilirubin AST ALT Alkaline Phosphatase Total Protein Albumin Globulin Albumin/Globulin Ratio Venous Blood Potassium Urine Color Urine Clarity Urine pH Ur Specific [place] Urine Protein Urine Glucose (UA) Urine Ketones Urine Blood Urine Nitrate Urine Bilirubin Urine Urobilinogen Ur Leukocyte Esterase Urine RBC (Auto) Urine Microscopic WBC Urine Bacteria Fluid Type Spinal fluid CSF Volume 1 CSF Appearance Clear/colorless CSF WBC 1.0 CSF RBC 0.0 CSF Total Cell Counted 22 H CSF Neutrophils 1 H CSF Lymphocytes 16.0 H CSF Monos/Macrophages 1 H CSF Comment Clear CSF Glucose 74 H CSF Total Protein HSV Source Description Fluid 01/20/18 01/20/18 01/20/18 16:00 17:34 21:20 WBC RBC Hgb Hct MCV MCH MCHC RDW Plt Count MPV Neut % (Auto) Lymph % (Auto) Mckean % (Auto) Eos % (Auto) Baso % (Auto) Neut # (Auto) Lymph # (Auto) Mckean # (Auto) Eos # (Auto) Baso # (Auto) Neutrophils % (Manual) Band Neutrophils % Lymphocytes % (Manual) Monocytes % (Manual) Eosinophils % (Manual) Platelet Estimate RBC Morphology PT INR APTT D-Dimer, Quantitative pO2 VBG pH VBG pCO2 VBG HCO3 VBG Total CO2 VBG O2 Sat (Calc) VBG Base Excess VBG Potassium Glucose Lactate FiO2 Sodium Potassium Chloride Carbon Dioxide Anion Gap BUN Creatinine Est GFR ( Amer) Est GFR (Non-Af Amer) POC Glucose (mg/dL) 149 H 256 H Random Glucose Calcium Phosphorus Magnesium Total Bilirubin AST ALT Alkaline Phosphatase Total Protein Albumin Globulin Albumin/Globulin Ratio Venous Blood Potassium Urine Color Urine Clarity Urine pH Ur Specific [place] Urine Protein Urine Glucose (UA) Urine Ketones Urine Blood Urine Nitrate Urine Bilirubin Urine Urobilinogen Ur Leukocyte Esterase Urine RBC (Auto) Urine Microscopic WBC Urine Bacteria Fluid Type CSF Volume CSF Appearance CSF WBC CSF RBC CSF Total Cell Counted CSF Neutrophils CSF Lymphocytes CSF Monos/Macrophages CSF Comment CSF Glucose CSF Total Protein 55.0 HSV Source Description 01/20/18 01/21/18 01/21/18 21:39 05:31 06:40 WBC 18.2 H RBC 3.79 L Hgb 12.0 Hct 36.1 MCV 95.1 MCH 31.8 H MCHC 33.4 RDW 13.4 Plt Count 234 MPV 8.9 Neut % (Auto) 96.0 H Lymph % (Auto) 2.6 L Mckean % (Auto) 1.3 Eos % (Auto) 0.0 Baso % (Auto) 0.1 Neut # (Auto) 17.5 H Lymph # (Auto) 0.5 L Mckean # (Auto) 0.2 Eos # (Auto) 0.0 Baso # (Auto) 0.0 Neutrophils % (Manual) 94 H Band Neutrophils % 2 Lymphocytes % (Manual) 3 L Monocytes % (Manual) 1 Eosinophils % (Manual) Platelet Estimate Normal RBC Morphology Normal PT INR APTT D-Dimer, Quantitative 172 pO2 VBG pH VBG pCO2 VBG HCO3 VBG Total CO2 VBG O2 Sat (Calc) VBG Base Excess VBG Potassium Glucose Lactate FiO2 Sodium Potassium Chloride Carbon Dioxide Anion Gap BUN Creatinine Est GFR ( Amer) Est GFR (Non-Af Amer) POC Glucose (mg/dL) 200 H Random Glucose Calcium Phosphorus Magnesium Total Bilirubin AST ALT Alkaline Phosphatase Total Protein Albumin Globulin Albumin/Globulin Ratio Venous Blood Potassium Urine Color Urine Clarity Urine pH Ur Specific [place] Urine Protein Urine Glucose (UA) Urine Ketones Urine Blood Urine Nitrate Urine Bilirubin Urine Urobilinogen Ur Leukocyte Esterase Urine RBC (Auto) Urine Microscopic WBC Urine Bacteria Fluid Type CSF Volume CSF Appearance CSF WBC CSF RBC CSF Total Cell Counted CSF Neutrophils CSF Lymphocytes CSF Monos/Macrophages CSF Comment CSF Glucose CSF Total Protein HSV Source Description 01/21/18 01/21/18 06:40 10:53 WBC RBC Hgb Hct MCV MCH MCHC RDW Plt Count MPV Neut % (Auto) Lymph % (Auto) Mckean % (Auto) Eos % (Auto) Baso % (Auto) Neut # (Auto) Lymph # (Auto) Mckean # (Auto) Eos # (Auto) Baso # (Auto) Neutrophils % (Manual) Band Neutrophils % Lymphocytes % (Manual) Monocytes % (Manual) Eosinophils % (Manual) Platelet Estimate RBC Morphology PT INR APTT D-Dimer, Quantitative pO2 VBG pH VBG pCO2 VBG HCO3 VBG Total CO2 VBG O2 Sat (Calc) VBG Base Excess VBG Potassium Glucose Lactate FiO2 Sodium 140 Potassium 4.1 Chloride 106 Carbon Dioxide 24 Anion Gap 14 BUN 18 H Creatinine 0.6 L Est GFR ( Amer) > 60 Est GFR (Non-Af Amer) > 60 POC Glucose (mg/dL) 270 H Random Glucose 211 H Calcium 9.0 Phosphorus Magnesium Total Bilirubin AST ALT Alkaline Phosphatase Total Protein Albumin Globulin Albumin/Globulin Ratio Venous Blood Potassium Urine Color Urine Clarity Urine pH Ur Specific [place] Urine Protein Urine Glucose (UA) Urine Ketones Urine Blood Urine Nitrate Urine Bilirubin Urine Urobilinogen Ur Leukocyte Esterase Urine RBC (Auto) Urine Microscopic WBC Urine Bacteria Fluid Type CSF Volume CSF Appearance CSF WBC CSF RBC CSF Total Cell Counted CSF Neutrophils CSF Lymphocytes CSF Monos/Macrophages CSF Comment CSF Glucose CSF Total Protein HSV Source Description Laboratory Results - last 72 hr 01/20/18 01/20/18 01/20/18 11:05 11:05 11:05 WBC 19.4 H D RBC 3.93 Hgb 12.4 Hct 37.3 MCV 94.9 MCH 31.6 H MCHC 33.3 RDW 13.3 Plt Count 222 MPV 8.6 Neut % (Auto) 91.3 H Lymph % (Auto) 3.3 L Mckean % (Auto) 4.5 Eos % (Auto) 0.5 Baso % (Auto) 0.4 Neut # (Auto) 17.7 H Lymph # (Auto) 0.6 L Mckean # (Auto) 0.9 H Eos # (Auto) 0.1 Baso # (Auto) 0.1 Neutrophils % (Manual) 90 H Band Neutrophils % 3 H Lymphocytes % (Manual) 2 L Monocytes % (Manual) 4 Eosinophils % (Manual) 1 Platelet Estimate Normal RBC Morphology Normal PT 11.5 INR 1.0 APTT 32.1 D-Dimer, Quantitative pO2 VBG pH VBG pCO2 VBG HCO3 VBG Total CO2 VBG O2 Sat (Calc) VBG Base Excess VBG Potassium Glucose Lactate FiO2 Sodium 139 Potassium 3.7 Chloride 102 Carbon Dioxide 26 Anion Gap 15 BUN 17 Creatinine 0.6 L Est GFR ( Amer) > 60 Est GFR (Non-Af Amer) > 60 POC Glucose (mg/dL) Random Glucose 144 H Hemoglobin A1c Calcium 9.3 Phosphorus 2.4 L Magnesium 1.6 Total Bilirubin 0.6 AST 45 H D ALT 30 Alkaline Phosphatase 82 Total Protein 7.5 Albumin 4.0 Globulin 3.5 Albumin/Globulin Ratio 1.1 Venous Blood Potassium Urine Color Urine Clarity Urine pH Ur Specific [place] Urine Protein Urine Glucose (UA) Urine Ketones Urine Blood Urine Nitrate Urine Bilirubin Urine Urobilinogen Ur Leukocyte Esterase Urine RBC (Auto) Urine Microscopic WBC Urine Bacteria Fluid Type CSF Volume CSF Appearance CSF WBC CSF RBC CSF Total Cell Counted CSF Neutrophils CSF Lymphocytes CSF Monos/Macrophages CSF Comment CSF Glucose CSF Total Protein HSV Source Description 01/20/18 01/20/18 01/20/18 11:15 11:22 11:35 WBC RBC Hgb Hct MCV MCH MCHC RDW Plt Count MPV Neut % (Auto) Lymph % (Auto) Mckean % (Auto) Eos % (Auto) Baso % (Auto) Neut # (Auto) Lymph # (Auto) Mckean # (Auto) Eos # (Auto) Baso # (Auto) Neutrophils % (Manual) Band Neutrophils % Lymphocytes % (Manual) Monocytes % (Manual) Eosinophils % (Manual) Platelet Estimate RBC Morphology PT INR APTT D-Dimer, Quantitative pO2 46 VBG pH 7.44 H VBG pCO2 43 VBG HCO3 28.0 VBG Total CO2 30.5 H VBG O2 Sat (Calc) 89.0 H VBG Base Excess 4.4 H VBG Potassium 3.4 L Glucose 151 H Lactate 1.9 FiO2 21.0 Sodium 135.0 Potassium Chloride 102.0 Carbon Dioxide Anion Gap BUN Creatinine Est GFR ( Amer) Est GFR (Non-Af Amer) POC Glucose (mg/dL) 139 H Random Glucose Hemoglobin A1c Calcium Phosphorus Magnesium Total Bilirubin AST ALT Alkaline Phosphatase Total Protein Albumin Globulin Albumin/Globulin Ratio Venous Blood Potassium 3.4 L Urine Color Yellow Urine Clarity Slighty-cloudy Urine pH 7.0 Ur Specific [place] 1.016 Urine Protein Negative Urine Glucose (UA) 50 Urine Ketones Negative Urine Blood Negative Urine Nitrate Negative Urine Bilirubin Negative Urine Urobilinogen 0.2-1.0 Ur Leukocyte Esterase Neg Urine RBC (Auto) 3 Urine Microscopic WBC < 1 Urine Bacteria Rare Fluid Type CSF Volume CSF Appearance CSF WBC CSF RBC CSF Total Cell Counted CSF Neutrophils CSF Lymphocytes CSF Monos/Macrophages CSF Comment CSF Glucose CSF Total Protein HSV Source Description 01/20/18 01/20/18 01/20/18 16:00 16:00 16:00 WBC RBC Hgb Hct MCV MCH MCHC RDW Plt Count MPV Neut % (Auto) Lymph % (Auto) Mckean % (Auto) Eos % (Auto) Baso % (Auto) Neut # (Auto) Lymph # (Auto) Mckean # (Auto) Eos # (Auto) Baso # (Auto) Neutrophils % (Manual) Band Neutrophils % Lymphocytes % (Manual) Monocytes % (Manual) Eosinophils % (Manual) Platelet Estimate RBC Morphology PT INR APTT D-Dimer, Quantitative pO2 VBG pH VBG pCO2 VBG HCO3 VBG Total CO2 VBG O2 Sat (Calc) VBG Base Excess VBG Potassium Glucose Lactate FiO2 Sodium Potassium Chloride Carbon Dioxide Anion Gap BUN Creatinine Est GFR ( Amer) Est GFR (Non-Af Amer) POC Glucose (mg/dL) Random Glucose Hemoglobin A1c Calcium Phosphorus Magnesium Total Bilirubin AST ALT Alkaline Phosphatase Total Protein Albumin Globulin Albumin/Globulin Ratio Venous Blood Potassium Urine Color Urine Clarity Urine pH Ur Specific [place] Urine Protein Urine Glucose (UA) Urine Ketones Urine Blood Urine Nitrate Urine Bilirubin Urine Urobilinogen Ur Leukocyte Esterase Urine RBC (Auto) Urine Microscopic WBC Urine Bacteria Fluid Type Spinal fluid CSF Volume 1 CSF Appearance Clear/colorless CSF WBC 1.0 CSF RBC 0.0 CSF Total Cell Counted 22 H CSF Neutrophils 1 H CSF Lymphocytes 16.0 H CSF Monos/Macrophages 1 H CSF Comment Clear CSF Glucose 74 H CSF Total Protein HSV Source Description Fluid 01/20/18 01/20/18 01/20/18 16:00 17:34 21:20 WBC RBC Hgb Hct MCV MCH MCHC RDW Plt Count MPV Neut % (Auto) Lymph % (Auto) Mckean % (Auto) Eos % (Auto) Baso % (Auto) Neut # (Auto) Lymph # (Auto) Mckean # (Auto) Eos # (Auto) Baso # (Auto) Neutrophils % (Manual) Band Neutrophils % Lymphocytes % (Manual) Monocytes % (Manual) Eosinophils % (Manual) Platelet Estimate RBC Morphology PT INR APTT D-Dimer, Quantitative pO2 VBG pH VBG pCO2 VBG HCO3 VBG Total CO2 VBG O2 Sat (Calc) VBG Base Excess VBG Potassium Glucose Lactate FiO2 Sodium Potassium Chloride Carbon Dioxide Anion Gap BUN Creatinine Est GFR ( Amer) Est GFR (Non-Af Amer) POC Glucose (mg/dL) 149 H 256 H Random Glucose Hemoglobin A1c Calcium Phosphorus Magnesium Total Bilirubin AST ALT Alkaline Phosphatase Total Protein Albumin Globulin Albumin/Globulin Ratio Venous Blood Potassium Urine Color Urine Clarity Urine pH Ur Specific [place] Urine Protein Urine Glucose (UA) Urine Ketones Urine Blood Urine Nitrate Urine Bilirubin Urine Urobilinogen Ur Leukocyte Esterase Urine RBC (Auto) Urine Microscopic WBC Urine Bacteria Fluid Type CSF Volume CSF Appearance CSF WBC CSF RBC CSF Total Cell Counted CSF Neutrophils CSF Lymphocytes CSF Monos/Macrophages CSF Comment CSF Glucose CSF Total Protein 55.0 HSV Source Description 01/20/18 01/21/18 01/21/18 21:39 05:31 06:40 WBC 18.2 H RBC 3.79 L Hgb 12.0 Hct 36.1 MCV 95.1 MCH 31.8 H MCHC 33.4 RDW 13.4 Plt Count 234 MPV 8.9 Neut % (Auto) 96.0 H Lymph % (Auto) 2.6 L Mckean % (Auto) 1.3 Eos % (Auto) 0.0 Baso % (Auto) 0.1 Neut # (Auto) 17.5 H Lymph # (Auto) 0.5 L Mckean # (Auto) 0.2 Eos # (Auto) 0.0 Baso # (Auto) 0.0 Neutrophils % (Manual) 94 H Band Neutrophils % 2 Lymphocytes % (Manual) 3 L Monocytes % (Manual) 1 Eosinophils % (Manual) Platelet Estimate Normal RBC Morphology Normal PT INR APTT D-Dimer, Quantitative 172 pO2 VBG pH VBG pCO2 VBG HCO3 VBG Total CO2 VBG O2 Sat (Calc) VBG Base Excess VBG Potassium Glucose Lactate FiO2 Sodium Potassium Chloride Carbon Dioxide Anion Gap BUN Creatinine Est GFR ( Amer) Est GFR (Non-Af Amer) POC Glucose (mg/dL) 200 H Random Glucose Hemoglobin A1c Calcium Phosphorus Magnesium Total Bilirubin AST ALT Alkaline Phosphatase Total Protein Albumin Globulin Albumin/Globulin Ratio Venous Blood Potassium Urine Color Urine Clarity Urine pH Ur Specific [place] Urine Protein Urine Glucose (UA) Urine Ketones Urine Blood Urine Nitrate Urine Bilirubin Urine Urobilinogen Ur Leukocyte Esterase Urine RBC (Auto) Urine Microscopic WBC Urine Bacteria Fluid Type CSF Volume CSF Appearance CSF WBC CSF RBC CSF Total Cell Counted CSF Neutrophils CSF Lymphocytes CSF Monos/Macrophages CSF Comment CSF Glucose CSF Total Protein HSV Source Description 01/21/18 01/21/18 01/21/18 06:40 06:40 10:53 WBC RBC Hgb Hct MCV MCH MCHC RDW Plt Count MPV Neut % (Auto) Lymph % (Auto) Mckean % (Auto) Eos % (Auto) Baso % (Auto) Neut # (Auto) Lymph # (Auto) Mckean # (Auto) Eos # (Auto) Baso # (Auto) Neutrophils % (Manual) Band Neutrophils % Lymphocytes % (Manual) Monocytes % (Manual) Eosinophils % (Manual) Platelet Estimate RBC Morphology PT INR APTT D-Dimer, Quantitative pO2 VBG pH VBG pCO2 VBG HCO3 VBG Total CO2 VBG O2 Sat (Calc) VBG Base Excess VBG Potassium Glucose Lactate FiO2 Sodium 140 Potassium 4.1 Chloride 106 Carbon Dioxide 24 Anion Gap 14 BUN 18 H Creatinine 0.6 L Est GFR ( Amer) > 60 Est GFR (Non-Af Amer) > 60 POC Glucose (mg/dL) 270 H Random Glucose 211 H Hemoglobin A1c 7.3 H D Calcium 9.0 Phosphorus Magnesium Total Bilirubin AST ALT Alkaline Phosphatase Total Protein Albumin Globulin Albumin/Globulin Ratio Venous Blood Potassium Urine Color Urine Clarity Urine pH Ur Specific [place] Urine Protein Urine Glucose (UA) Urine Ketones Urine Blood Urine Nitrate Urine Bilirubin Urine Urobilinogen Ur Leukocyte Esterase Urine RBC (Auto) Urine Microscopic WBC Urine Bacteria Fluid Type CSF Volume CSF Appearance CSF WBC CSF RBC CSF Total Cell Counted CSF Neutrophils CSF Lymphocytes CSF Monos/Macrophages CSF Comment CSF Glucose CSF Total Protein HSV Source Description Microbiology 01/20/18 16:00 Cerebral Spinal Fluid Gram Stain - Final 01/20/18 16:00 Cerebral Spinal Fluid CSF Culture - Preliminary NO GROWTH AFTER 24 HOURS 01/20/18 11:35 Urine,Clean Catch Urine Culture - Final 10-50,000 CFU/ML. MULTIPLE SPECIES. PROBABLE CONTAMINATION. 01/20/18 11:05 Blood Blood Culture - Preliminary NO GROWTH AFTER 24 HOURS ) Accession No. : [id number] Patient Name / ID : MEHREEN SEVILLA / [id number] Exam Date : 01/20/2018 18:07:13 ( Approved ) Study Comment : Sex / Age : F / 72Y Creator : Nicholas Kirkpatrick MD Dictator : Nicholas Kirkpatrick MD [employer] : Site Acquisition Manager : Nicholas Kirkpatrick MD Approver2 : Report Date : 01/20/2018 18:46:06 My Comment : Date of service: 01/20/2018 PROCEDURE: Right lower extremity venous duplex Doppler. HISTORY: pain on right thigh COMPARISON: None available. TECHNIQUE: Common femoral, superficial femoral, popliteal and posterior tibial veins were evaluated. Flow was assessed with color Doppler, compressibility, assessment of phasic flow and augmentation response. FINDINGS: COMMON FEMORAL VEIN: Unremarkable. SUPERFICIAL FEMORAL VEIN: Unremarkable. POPLITEAL VEIN: Unremarkable. POSTERIOR TIBIAL VEIN: Unremarkable. OTHER FINDINGS: None. IMPRESSION: No evidence of deep venous thrombosis in the right lower extremity. Accession No. : [id number] Patient Name / ID : MEHREEN SEVILLA / [id number] Exam Date : 01/20/2018 20:05:34 ( Approved ) Study Comment : Sex / Age : F Creator : najma rollins Dictator : Karyn Richardson [employer] : Site Acquisition Manager : Karyn Richardson Approver[employer] : Report Date : 01/20/2018 20:24:03 My Comment : Date of service: 01/20/2018 PROCEDURE: HISTORY: pain on right thigh COMPARISON: None TECHNIQUE: AP and oblique lateral views obtained FINDINGS: No fracture or lytic lesion. Right hip and right knee arthrosis present IMPRESSION: No fracture or lytic lesion. Right hip and right knee arthrosis present Accession No. : [id number] Patient Name / ID : MEHREEN SEVILLA / [id number] Exam Date : 01/20/2018 11:52:11 ( Approved ) Study Comment : Sex / Age : F / 72Y Creator : Patrick Meng MD Dictator : Patrick Meng MD [employer] : Site Acquisition Manager : Patrick Meng MD Approver[employer] : Report Date : 01/20/2018 12:32:27 My Comment : Date of service: 01/20/2018 PROCEDURE: CT HEAD WITHOUT CONTRAST. HISTORY: ALCAZAR COMPARISON: Comparison made with CT scan brain dated 05/07/2014 TECHNIQUE: Axial computed tomography images were obtained through the head/brain without intravenous contrast. Radiation dose: Total exam DLP = 1052.87 mGy-cm. This CT exam was performed using one or more of the following dose reduction techniques: Automated exposure control, adjustment of the mA and/or kV according to patient size, and/or use of iterative reconstruction technique. FINDINGS: HEMORRHAGE: No intracranial hemorrhage. BRAIN: No evidence of large acute infarct. Questionable few tiny chronic bilateral basal nuclei lacunar type infarcts. Ventricular and sulcal size are within range of normal for this patient's stated age VENTRICLES: No obstructive hydrocephalus. CALVARIUM: Unremarkable. PARANASAL SINUSES: Unremarkable as visualized. No significant inflammatory changes. MASTOID AIR CELLS: Unremarkable as visualized. No inflammatory changes. OTHER FINDINGS: None. IMPRESSION: No evidence of acute intracranial hemorrhage or infarct. Questionable few chronic bilateral basal nuclei lacunar type inAccession No. : [id number] Patient Name / ID : MEHREEN SEVILLA / [id number] Exam Date : 01/20/2018 11:40:06 ( Approved ) Study Comment : Sex / Age : F Y Creator : Patrick Meng MD Dictator : Patrick Meng MD [employer] : Site Acquisition Manager : Patrick Meng MD Approver2 : Report Date : 01/20/2018 12:53:19 My Comment : Date of service: 01/20/2018 PROCEDURE: CT Abdomen and Pelvis with contrast HISTORY: LLQ pain, fever COMPARISON: None. TECHNIQUE: Contrast dose: 95 cc Omnipaque 300 Radiation dose: Total exam DLP = 676.38 mGy-cm. This CT exam was performed using one or more of the following dose reduction techniques: Automated exposure control, adjustment of the mA and/or kV according to patient size, and/or use of iterative reconstruction technique. . FINDINGS: LOWER THORAX: Minor bibasilar passive/dependent type atelectasis both lung bases. Minor scarring in the lingular and middle lobe regions as well. . No evidence of effusion or basilar pneumothorax. Heart size is enlarged. No significant pericardial effusion. Tiny hiatal hernia. LIVER: Liver is upper limits of normal measuring over 18 cm in CC dimension. Minor fatty hepatic infiltration. No obvious hepatic mass collection or calcification. Portal and splenic veins are opacified. GALLBLADDER AND BILE DUCTS: Cholecystectomy PANCREAS: Pancreas is atrophic fatty replaced. . There is a well-circumscribed small elliptical shaped approximately 14 point 4 x 10.2 times 13 point 3 mm low- attenuation lesion within the mid to distal body of the pancreas that exhibits Hounsfield units in the ranging between mid single digits. There also appears to be a tiny calcification along the inferior margin of this low-attenuation lesion. . The lesion is of uncertain etiology though could represent a pseudocyst possibility of a cystic neoplasm not excluded. . Followup the CT scan at interval could be performed to assess stability. Clinical correlation with GI consultation recommended for further evaluation. SPLEEN: The spleen exhibits normal size and attenuation pattern. No masses collections or calcifications. ADRENALS: There are no adrenal lesions KIDNEYS AND URETERS: Kidneys demonstrate symmetric nephrograms. No evidence of nephrolithiasis or hydronephrosis. No obvious renal mass or collection. VASCULATURE: Unremarkable. No aortic aneurysm. BOWEL: Evaluation of the bowel is limited due to the lack of oral contrast material. The stomach is incompletely distended which presumably accounts for thick- walled appearance. Visualized loops of small bowel exhibit normal contour and caliber. No evidence of acute mechanical small bowel obstruction. There there is fecalized content within the distal small bowel suggesting stasis. Note made of a few loops of proximal small bowel left mid abdomen which exhibit questionable mild wall thickening. Rule out enteritis. . Stool and air seen throughout the large bowel suggesting mild fecal retention. No definitive mural wall thickening of the colon. . APPENDIX: What may represent a short but normal-appearing appendix seen on coronal image number [id number] and axial image number [id number]. No periappendiceal inflammatory changes. PERITONEUM: Unremarkable. No free fluid. No free air. Small fat containing bilateral inguinal hernias are present left slightly larger than right. LYMPH NODES: Multiple small nonspecific retroperitoneal lymph nodes are noted. . BLADDER: Urinary bladder is incompletely distended which in part accounts for thick- walled appearance however cystitis must be excluded. Correlation urinalysis. REPRODUCTIVE: Uterus unremarkable aside from what probably represents some myometrial vascular calcifications. BONES: Mild multilevel degenerative spondylosis of the lower thoracic and lumbar spine. No acute compression fractures no retropulsed fragments. OTHER FINDINGS: None. IMPRESSION: Liver is upper limits of normal. Mild fatty hepatic infiltration. Cholecystectomy. There is a small cystic lesion within the mid body of the pancreas of uncertain etiology. Rule out pseudocyst versus cystic neoplasm. GI consultation suggested. Note made of a few loops of proximal small bowel left mid abdomen which exhibit questionable mild wall thickening. Rule out enteritis. Findings consistent with mild fecal retention/constipation as described above. Urinary bladder wall thickening likely due to incomplete distention however correlation with urinalysis recommended to exclude the possibility of a cystitis Accession No. : [id number] Patient Name / ID : MEHREEN SEVILLA / [id number] Exam Date : 01/20/2018 20:05:34 ( Approved ) Study Comment : Sex / Age : F / 72Y Creator : najma rollins Dictator : [employer] : Site Acquisition Manager : Patrick Meng MD Approver2 : Report Date : 01/20/2018 20:24:03 My Comment : Date of service: 01/20/2018 HISTORY: Fever COMPARISON: Saint made with prior chest radiograph 01/20/2018. . TECHNIQUE: Chest PA and lateral FINDINGS: LUNGS: Mild atelectasis and/or scarring changes both lung bases left greater than right. PLEURA: No significant pleural effusion identified. No pneumothorax apparent. CARDIOVASCULAR: Normal. OSSEOUS STRUCTURES: No significant abnormalities. VISUALIZED UPPER ABDOMEN: Normal. OTHER FINDINGS: None. IMPRESSION: Mild atelectasis and/or scarring changes both lung bases left greater than right. Assessment & Plan (1) Fever with chills Status: Acute Priority: High (2) Leukocytosis Status: Acute - Assessment and Plan (Free Text) Assessment: A/P- 72 year old female with PMH of DM II, HTN was admitted with fever/chills and ALCAZAR .. her symptoms of ALCAZAR and chills have resolved. CSF not c/w bacterial meningitis as only 1 wbc and normal glucose and so far CSF gram stain and cx are both negative. source of leukocytoss unclear at this time perhaps pulm vs GI. abd /pelvic ct reported as ? enteritis and ? pancreatic psudocyst or mass cxr reported as b/l ower lung filed atelactasis. UA- negative urine cx- contaminant csf gram stain and cx- neg to date Plan- check blood cx x 2. check stool c.diff if any loose stools check stool culture and ova and parasite. advise to change antibiotics to IV zosyn to cover for ? enteritis and GI pathogens adn would also cover broadly for pulmonary pathogens. d/c ceftriaxone. d/c vancomycin. can continue with empiric IV acyclovir pending CSF HSV PCR result.( low suspicion). also had asked csf to be tested for lyme and VDRL . check urine legionella AG as well. Also advise GI evaluation for the pancreatic findings. all above d/w patient and she verbalizes full understanding of all above and agrees with above plan of care. Thank you fro allowing me to take part in the care of this patient.
--- NOTE | 2018-01-21 11:41 | CARD ---
APPROVED REPORT Date of service: 01/20/2018 EKG Measurement Heart [id number] <Conclusion> Normal sinus rhythm Normal ECG
--- NOTE | 2018-01-21 12:38 | RAD ---
Date of service: 01/20/2018 HISTORY: Fever COMPARISON: Saint made with prior chest radiograph 01/20/2018. . TECHNIQUE: Chest PA and lateral FINDINGS: LUNGS: Mild atelectasis and/or scarring changes both lung bases left greater than right. PLEURA: No significant pleural effusion identified. No pneumothorax apparent. CARDIOVASCULAR: Normal. OSSEOUS STRUCTURES: No significant abnormalities. VISUALIZED UPPER ABDOMEN: Normal. OTHER FINDINGS: None. IMPRESSION: Mild atelectasis and/or scarring changes both lung bases left greater than right.
--- NOTE | 2018-01-21 14:48 | CP.PCM.PN ---
Subjective - Date & Time of Evaluation Date of Evaluation: 01/21/18 Time of Evaluation: 13:00 - Subjective Subjective: Pt has no fever at present denies headache no chills denies cough no SOB no chect pain no abd pain no diarrhea complains of slight right thigh discomfort Objective - Vital Signs/Intake and Output Vital Signs (last 24 hours): Temp Pulse Resp BP Pulse Ox 97.9 F 101 H 20 110/62 94 L 01/21/18 08:08 01/21/18 09:41 01/21/18 08:08 01/21/18 09:41 01/21/18 08:08 - Medications Medications: Current Medications Acetaminophen (Tylenol 325mg Tab) 650 mg PO Q6 PRN PRN Reason: Pain, Mild (1-3) Acetaminophen (Tylenol 325mg Tab) 650 mg PO Q6 PRN PRN Reason: Fever >100.4 F Aspirin (Ecotrin) 81 mg PO DAILY [facility] Last Admin: 01/21/18 09:25 Dose: 81 mg Atorvastatin Calcium (Lipitor) 20 mg PO DAILY [facility] Last Admin: 01/21/18 09:25 Dose: 20 mg Docusate Sodium (Colace) 100 mg PO BID [facility] Last Admin: 01/21/18 09:24 Dose: 100 mg Enoxaparin Sodium (Lovenox) 40 mg SC DAILY [facility] PRN Reason: Protocol Last Admin: 01/21/18 09:25 Dose: 40 mg Sodium Chloride (Sodium Chloride 0.9%) 1,000 mls @ 100 mls/hr IV .Q10H [facility] Last Admin: 01/20/18 18:54 Dose: 100 mls/hr Vancomycin HCl 1 gm/ Sodium (Chloride) 250 mls @ 166.667 mls/hr IVPB Q12 [facility] PRN Reason: Protocol Last Admin: 01/21/18 09:40 Dose: 166.667 mls/hr Ceftriaxone Sodium 1 gm/ (Sodium Chloride) 100 mls @ 100 mls/hr IVPB DAILY [facility] PRN Reason: Protocol Last Admin: 01/21/18 09:27 Dose: 100 mls/hr Acyclovir 500 mg/ Sodium (Chloride) 100 mls @ 100 mls/hr IVPB Q8 [facility] PRN Reason: Protocol Last Admin: 01/21/18 09:42 Dose: 100 mls/hr Lisinopril (Zestril) 5 mg PO DAILY [facility] Last Admin: 01/21/18 09:41 Dose: 5 mg Metformin HCl (Glucophage) 1,000 mg PO BID [facility] Last Admin: 01/21/18 09:25 Dose: 1,000 mg Pantoprazole Sodium (Protonix Ec Tab) 40 mg PO DAILY [facility] Last Admin: 01/21/18 09:27 Dose: 40 mg - Labs Labs: 01/21/18 06:40 01/21/18 06:40 PT 11.5 Seconds (9.8-13.1) 01/20/18 11:05 INR 1.0 (0.9-1.2) 01/20/18 11:05 APTT 32.1 Seconds (25.6-37.1) 01/20/18 11:05 - Constitutional Appears: Non-toxic, No Acute Distress - Head Exam Head Exam: ATRAUMATIC, NORMAL INSPECTION, NORMOCEPHALIC - Eye Exam Eye Exam: EOMI - ENT Exam ENT Exam: Mucous Membranes Moist, Normal External Ear Exam - Neck Exam Neck Exam: Full ROM. absent: Meningismus - Respiratory Exam Respiratory Exam: NORMAL BREATHING PATTERN. absent: Respiratory Distress - Cardiovascular Exam Cardiovascular Exam: REGULAR RHYTHM, +S1, +S2 - GI/Abdominal Exam GI & Abdominal Exam: Soft, Normal Bowel Sounds. absent: Tenderness - Extremities Exam Extremities Exam: Full ROM, Normal Capillary Refill. absent: Calf Tenderness - Back Exam Back Exam: Full ROM. absent: CVA tenderness (L), CVA tenderness (R) - Neurological Exam Neurological Exam: Alert, Awake, CN II-XII Intact, Oriented x3 Neuro motor strength exam: Left Upper Extremity: 5, Right Upper Extremity: 5, Left Lower Extremity: 5, Right Lower Extremity: 5 - Psychiatric Exam Psychiatric exam: Normal Affect, Normal Mood - Skin Skin Exam: Dry, Normal Color, Warm Assessment and Plan (1) Fever with chills Status: Acute (2) Leukocytosis Status: Acute (3) Headache Status: Acute (4) Pancreatic mass Status: Chronic (5) DMII (diabetes mellitus, type 2) Status: Chronic - Assessment and Plan (Free Text) Assessment: 72 y/o female with hx of DM type II, Pancreatic cyst , was brought in bec of fever , chills and headache. In the ED found to have fever and leukocytosis. LP done showed WBC=22 with lymphocyte predominace. (1) Fever with chills, Leukocytosis and Headache Status: Acute ? etiology ? Aseptic Meningitis - check HSV, Enterovirus - pt had complained of some right lower ext pain prior to even - empirically started on IV Ceftriaxone, Vanco and Acyclovir - Panculture- blood. CSF, Urine - CXR showed Atelectasis , scarring- pt has no resp sxs. - ID consult (2) Pancreatic Cyst Status: Chronic CT scan showed Pancreatic cyst - this has been present since 2013 , pt has had CT scan to ff up this cyst and was eval by GI, pt denies abd pain (3) DMII (diabetes mellitus, type 2) Status: Chronic accucheck with coverage cont Metformin 4. HTN cont Lisinopril 5. Right thigh pain Doppler Us ruled out DVT Femur xray : no fracture DVT proph -Lovenox
[2018-01-21] MEDS: Piperacillin/Tazobact 3.375 GM in Sodium Chloride 0.9% 100 ML IVPB SCH ×2 (17:26→21:59)
[2018-01-22] MEDS: Acyclovir 500 MG in Sodium Chloride 0.9% 100 ML IVPB SCH ×3 (00:10→16:31)
[2018-01-22] MEDS: Piperacillin/Tazobact 3.375 GM in Sodium Chloride 0.9% 100 ML IVPB SCH ×4 (03:39→21:36)
[2018-01-22 06:17] LABS: BASO % 0.1 % (0.0-2.0); EOS # 0.1 K/uL (0.0-0.7); EOS % 0.5 % (0.0-4.0); HEMOGLOBIN 10.8 g/dL (12.0-16.0); LYMPH # 1.6 K/uL (1.0-4.3); LYMPH % 13.7 % (20.0-40.0); MEAN CELL VOLUME 95.7 fl (81.0-99.0); MEAN CORPUSCULAR HEMOGLOBIN 32.2 pg (27.0-31.0); MEAN CORPUSCULAR HGB CONC 33.7 g/dL (33.0-37.0); MEAN PLATELET VOLUME 8.9 fl (7.2-11.7); MONO # 0.8 K/uL (0.0-0.8); MONO % 7.1 % (0.0-10.0); NEUT # 8.9 K/uL (1.8-7.0); NEUT % 78.6 % (50.0-75.0); RBC 3.34 Mil/uL (3.80-5.20); RED CELL DISTRIBUTION WIDTH 13.7 % (11.5-14.5); WHITE BLOOD COUNT 11.3 K/uL (4.8-10.8)
[2018-01-22 06:48] LABS: ALT/SGPT 25 U/L (9-52); AST/SGOT 17 U/L (14-36); BLOOD UREA NITROGEN 18 mg/dl (7-17); GFR AFRICAN-AMERICAN > 60; GFR NON-AFRICAN AMERICAN > 60
[2018-01-22] MEDS: Enoxaparin 40 mg Syringe SC SCH (09:25)
[2018-01-22] MEDS: Pantoprazole 40 mg EC Tab PO SCH (09:26)
--- NOTE | 2018-01-22 11:18 | CP.PCM.PN ---
Subjective - Date & Time of Evaluation Date of Evaluation: 01/22/18 Time of Evaluation: 11:17 - Subjective Subjective: ID Note- pt. seen and examined today. states feels better. denies any fever or chills. denies any sob. states had mild abd discomfort but has resolved. denies any diarrhea. Objective - Vital Signs/Intake and Output Vital Signs (last 24 hours): Temp Pulse Resp BP Pulse Ox 98.3 F 86 18 110/60 95 01/22/18 08:53 01/22/18 09:32 01/22/18 08:53 01/22/18 09:32 01/22/18 08:53 - Medications Medications: Current Medications Acetaminophen (Tylenol 325mg Tab) 650 mg PO Q6 PRN PRN Reason: Pain, Mild (1-3) Acetaminophen (Tylenol 325mg Tab) 650 mg PO Q6 PRN PRN Reason: Fever >100.4 F Aspirin (Ecotrin) 81 mg PO DAILY [facility] Last Admin: 01/22/18 09:24 Dose: 81 mg Atorvastatin Calcium (Lipitor) 20 mg PO DAILY [facility] Last Admin: 01/22/18 09:24 Dose: 20 mg Docusate Sodium (Colace) 100 mg PO BID [facility] Last Admin: 01/22/18 09:23 Dose: Not Given Enoxaparin Sodium (Lovenox) 40 mg SC DAILY [facility] PRN Reason: Protocol Last Admin: 01/22/18 09:25 Dose: 40 mg Sodium Chloride (Sodium Chloride 0.9%) 1,000 mls @ 100 mls/hr IV .Q10H [facility] Last Admin: 01/20/18 18:54 Dose: 100 mls/hr Acyclovir 500 mg/ Sodium (Chloride) 100 mls @ 100 mls/hr IVPB Q8 [facility] PRN Reason: Protocol Last Admin: 01/22/18 09:30 Dose: 100 mls/hr Piperacillin Sod/Tazobactam (Sod 3.375 gm/ Sodium Chloride) 100 mls @ 100 mls/ hr IVPB Q6 [facility] PRN Reason: Protocol Last Admin: 01/22/18 09:28 Dose: 100 mls/hr Lisinopril (Zestril) 5 mg PO DAILY [facility] Last Admin: 01/22/18 09:32 Dose: 5 mg Metformin HCl (Glucophage) 1,000 mg PO BID [facility] Last Admin: 01/22/18 09:24 Dose: 1,000 mg Pantoprazole Sodium (Protonix Ec Tab) 40 mg PO DAILY [facility] Last Admin: 01/22/18 09:26 Dose: 40 mg - Labs Labs: - Additional Findings Additional findings: - Constitutional Appears: No Acute Distress - Head Exam Head Exam: ATRAUMATIC - Eye Exam Eye Exam: EOMI - ENT Exam ENT Exam: Normal Oropharynx - Neck Exam Neck exam: Positive for: Full Rom Additional comments: supple - Respiratory Exam Respiratory Exam: NORMAL BREATHING PATTERN Additional comments: no wheezing slightly decreased breath sounds at right base - Cardiovascular Exam Cardiovascular Exam: RRR, +S1, +S2 - Extremities Exam Extremities exam: Positive for: normal inspection - Neurological Exam Neurological exam: Alert, Oriented x 3 Laboratory Results - last 72 hr 01/20/18 01/20/18 01/20/18 11:05 11:05 11:05 WBC 19.4 H D RBC 3.93 Hgb 12.4 Hct 37.3 MCV 94.9 MCH 31.6 H MCHC 33.3 RDW 13.3 Plt Count 222 MPV 8.6 Neut % (Auto) 91.3 H Lymph % (Auto) 3.3 L [place] % (Auto) 4.5 Eos % (Auto) 0.5 Baso % (Auto) 0.4 Neut # (Auto) 17.7 H Lymph # (Auto) 0.6 L [place] # (Auto) 0.9 H Eos # (Auto) 0.1 Baso # (Auto) 0.1 Neutrophils % (Manual) 90 H Band Neutrophils % 3 H Lymphocytes % (Manual) 2 L Monocytes % (Manual) 4 Eosinophils % (Manual) 1 Platelet Estimate Normal RBC Morphology Normal PT 11.5 INR 1.0 APTT 32.1 D-Dimer, Quantitative pO2 VBG pH VBG pCO2 VBG HCO3 VBG Total CO2 VBG O2 Sat (Calc) VBG Base Excess VBG Potassium Glucose Lactate FiO2 Sodium 139 Potassium 3.7 Chloride 102 Carbon Dioxide 26 Anion Gap 15 BUN 17 Creatinine 0.6 L Est GFR ( Amer) > 60 Est GFR (Non-Af Amer) > 60 POC Glucose (mg/dL) Random Glucose 144 H Hemoglobin A1c Calcium 9.3 Phosphorus 2.4 L Magnesium 1.6 Total Bilirubin 0.6 AST 45 H D ALT 30 Alkaline Phosphatase 82 Total Protein 7.5 Albumin 4.0 Globulin 3.5 Albumin/Globulin Ratio 1.1 Venous Blood Potassium Urine Color Urine Clarity Urine pH Ur Specific [place] Urine Protein Urine Glucose (UA) Urine Ketones Urine Blood Urine Nitrate Urine Bilirubin Urine Urobilinogen Ur Leukocyte Esterase Urine RBC (Auto) Urine Microscopic WBC Urine Bacteria Fluid Type CSF Volume CSF Appearance CSF WBC CSF RBC CSF Total Cell Counted CSF Neutrophils CSF Lymphocytes CSF Monos/Macrophages CSF Comment CSF Glucose CSF Total Protein CSF VDRL HSV Source Description HSV I DNA PCR HSV II DNA PCR 01/20/18 01/20/18 01/20/18 11:15 11:22 11:35 WBC RBC Hgb Hct MCV MCH MCHC RDW Plt Count MPV Neut % (Auto) Lymph % (Auto) [place] % (Auto) Eos % (Auto) Baso % (Auto) Neut # (Auto) Lymph # (Auto) [place] # (Auto) Eos # (Auto) Baso # (Auto) Neutrophils % (Manual) Band Neutrophils % Lymphocytes % (Manual) Monocytes % (Manual) Eosinophils % (Manual) Platelet Estimate RBC Morphology PT INR APTT D-Dimer, Quantitative pO2 46 VBG pH 7.44 H VBG pCO2 43 VBG HCO3 28.0 VBG Total CO2 30.5 H VBG O2 Sat (Calc) 89.0 H VBG Base Excess 4.4 H VBG Potassium 3.4 L Glucose 151 H Lactate 1.9 FiO2 21.0 Sodium 135.0 Potassium Chloride 102.0 Carbon Dioxide Anion Gap BUN Creatinine Est GFR ( Amer) Est GFR (Non-Af Amer) POC Glucose (mg/dL) 139 H Random Glucose Hemoglobin A1c Calcium Phosphorus Magnesium Total Bilirubin AST ALT Alkaline Phosphatase Total Protein Albumin Globulin Albumin/Globulin Ratio Venous Blood Potassium 3.4 L Urine Color Yellow Urine Clarity Slighty-cloudy Urine pH 7.0 Ur Specific [place] 1.016 Urine Protein Negative Urine Glucose (UA) 50 Urine Ketones Negative Urine Blood Negative Urine Nitrate Negative Urine Bilirubin Negative Urine Urobilinogen 0.2-1.0 Ur Leukocyte Esterase Neg Urine RBC (Auto) 3 Urine Microscopic WBC < 1 Urine Bacteria Rare Fluid Type CSF Volume CSF Appearance CSF WBC CSF RBC CSF Total Cell Counted CSF Neutrophils CSF Lymphocytes CSF Monos/Macrophages CSF Comment CSF Glucose CSF Total Protein CSF VDRL HSV Source Description HSV I DNA PCR HSV II DNA PCR 01/20/18 01/20/18 01/20/18 16:00 16:00 16:00 WBC RBC Hgb Hct MCV MCH MCHC RDW Plt Count MPV Neut % (Auto) Lymph % (Auto) [place] % (Auto) Eos % (Auto) Baso % (Auto) Neut # (Auto) Lymph # (Auto) [place] # (Auto) Eos # (Auto) Baso # (Auto) Neutrophils % (Manual) Band Neutrophils % Lymphocytes % (Manual) Monocytes % (Manual) Eosinophils % (Manual) Platelet Estimate RBC Morphology PT INR APTT D-Dimer, Quantitative pO2 VBG pH VBG pCO2 VBG HCO3 VBG Total CO2 VBG O2 Sat (Calc) VBG Base Excess VBG Potassium Glucose Lactate FiO2 Sodium Potassium Chloride Carbon Dioxide Anion Gap BUN Creatinine Est GFR ( Amer) Est GFR (Non-Af Amer) POC Glucose (mg/dL) Random Glucose Hemoglobin A1c Calcium Phosphorus Magnesium Total Bilirubin AST ALT Alkaline Phosphatase Total Protein Albumin Globulin Albumin/Globulin Ratio Venous Blood Potassium Urine Color Urine Clarity Urine pH Ur Specific [place] Urine Protein Urine Glucose (UA) Urine Ketones Urine Blood Urine Nitrate Urine Bilirubin Urine Urobilinogen Ur Leukocyte Esterase Urine RBC (Auto) Urine Microscopic WBC Urine Bacteria Fluid Type Spinal fluid CSF Volume 1 CSF Appearance Clear/colorless CSF WBC 1.0 CSF RBC 0.0 CSF Total Cell Counted 22 H CSF Neutrophils 1 H CSF Lymphocytes 16.0 H CSF Monos/Macrophages 1 H CSF Comment Clear CSF Glucose 74 H CSF Total Protein CSF VDRL HSV Source Description Csf HSV I DNA PCR Not detected HSV II DNA PCR Not detected 01/20/18 01/20/18 01/20/18 16:00 16:00 17:34 WBC RBC Hgb Hct MCV MCH MCHC RDW Plt Count MPV Neut % (Auto) Lymph % (Auto) [place] % (Auto) Eos % (Auto) Baso % (Auto) Neut # (Auto) Lymph # (Auto) [place] # (Auto) Eos # (Auto) Baso # (Auto) Neutrophils % (Manual) Band Neutrophils % Lymphocytes % (Manual) Monocytes % (Manual) Eosinophils % (Manual) Platelet Estimate RBC Morphology PT INR APTT D-Dimer, Quantitative pO2 VBG pH VBG pCO2 VBG HCO3 VBG Total CO2 VBG O2 Sat (Calc) VBG Base Excess VBG Potassium Glucose Lactate FiO2 Sodium Potassium Chloride Carbon Dioxide Anion Gap BUN Creatinine Est GFR ( Amer) Est GFR (Non-Af Amer) POC Glucose (mg/dL) 149 H Random Glucose Hemoglobin A1c Calcium Phosphorus Magnesium Total Bilirubin AST ALT Alkaline Phosphatase Total Protein Albumin Globulin Albumin/Globulin Ratio Venous Blood Potassium Urine Color Urine Clarity Urine pH Ur Specific [place] Urine Protein Urine Glucose (UA) Urine Ketones Urine Blood Urine Nitrate Urine Bilirubin Urine Urobilinogen Ur Leukocyte Esterase Urine RBC (Auto) Urine Microscopic WBC Urine Bacteria Fluid Type CSF Volume CSF Appearance CSF WBC CSF RBC CSF Total Cell Counted CSF Neutrophils CSF Lymphocytes CSF Monos/Macrophages CSF Comment CSF Glucose CSF Total Protein 55.0 CSF VDRL Nonreactive HSV Source Description HSV I DNA PCR HSV II DNA PCR 01/20/18 01/20/18 01/21/18 21:20 21:39 05:31 WBC RBC Hgb Hct MCV MCH MCHC RDW Plt Count MPV Neut % (Auto) Lymph % (Auto) [place] % (Auto) Eos % (Auto) Baso % (Auto) Neut # (Auto) Lymph # (Auto) [place] # (Auto) Eos # (Auto) Baso # (Auto) Neutrophils % (Manual) Band Neutrophils % Lymphocytes % (Manual) Monocytes % (Manual) Eosinophils % (Manual) Platelet Estimate RBC Morphology PT INR APTT D-Dimer, Quantitative 172 pO2 VBG pH VBG pCO2 VBG HCO3 VBG Total CO2 VBG O2 Sat (Calc) VBG Base Excess VBG Potassium Glucose Lactate FiO2 Sodium Potassium Chloride Carbon Dioxide Anion Gap BUN Creatinine Est GFR ( Amer) Est GFR (Non-Af Amer) POC Glucose (mg/dL) 256 H 200 H Random Glucose Hemoglobin A1c Calcium Phosphorus Magnesium Total Bilirubin AST ALT Alkaline Phosphatase Total Protein Albumin Globulin Albumin/Globulin Ratio Venous Blood Potassium Urine Color Urine Clarity Urine pH Ur Specific [place] Urine Protein Urine Glucose (UA) Urine Ketones Urine Blood Urine Nitrate Urine Bilirubin Urine Urobilinogen Ur Leukocyte Esterase Urine RBC (Auto) Urine Microscopic WBC Urine Bacteria Fluid Type CSF Volume CSF Appearance CSF WBC CSF RBC CSF Total Cell Counted CSF Neutrophils CSF Lymphocytes CSF Monos/Macrophages CSF Comment CSF Glucose CSF Total Protein CSF VDRL HSV Source Description HSV I DNA PCR HSV II DNA PCR 01/21/18 01/21/18 01/21/18 06:40 06:40 06:40 WBC 18.2 H RBC 3.79 L Hgb 12.0 Hct 36.1 MCV 95.1 MCH 31.8 H MCHC 33.4 RDW 13.4 Plt Count 234 MPV 8.9 Neut % (Auto) 96.0 H Lymph % (Auto) 2.6 L [place] % (Auto) 1.3 Eos % (Auto) 0.0 Baso % (Auto) 0.1 Neut # (Auto) 17.5 H Lymph # (Auto) 0.5 L [place] # (Auto) 0.2 Eos # (Auto) 0.0 Baso # (Auto) 0.0 Neutrophils % (Manual) 94 H Band Neutrophils % 2 Lymphocytes % (Manual) 3 L Monocytes % (Manual) 1 Eosinophils % (Manual) Platelet Estimate Normal RBC Morphology Normal PT INR APTT D-Dimer, Quantitative pO2 VBG pH VBG pCO2 VBG HCO3 VBG Total CO2 VBG O2 Sat (Calc) VBG Base Excess VBG Potassium Glucose Lactate FiO2 Sodium 140 Potassium 4.1 Chloride 106 Carbon Dioxide 24 Anion Gap 14 BUN 18 H Creatinine 0.6 L Est GFR ( Amer) > 60 Est GFR (Non-Af Amer) > 60 POC Glucose (mg/dL) Random Glucose 211 H Hemoglobin A1c 7.3 H D Calcium 9.0 Phosphorus Magnesium Total Bilirubin AST ALT Alkaline Phosphatase Total Protein Albumin Globulin Albumin/Globulin Ratio Venous Blood Potassium Urine Color Urine Clarity Urine pH Ur Specific [place] Urine Protein Urine Glucose (UA) Urine Ketones Urine Blood Urine Nitrate Urine Bilirubin Urine Urobilinogen Ur Leukocyte Esterase Urine RBC (Auto) Urine Microscopic WBC Urine Bacteria Fluid Type CSF Volume CSF Appearance CSF WBC CSF RBC CSF Total Cell Counted CSF Neutrophils CSF Lymphocytes CSF Monos/Macrophages CSF Comment CSF Glucose CSF Total Protein CSF VDRL HSV Source Description HSV I DNA PCR HSV II DNA PCR 01/21/18 01/21/18 01/21/18 10:53 15:54 21:51 WBC RBC Hgb Hct MCV MCH MCHC RDW Plt Count MPV Neut % (Auto) Lymph % (Auto) [place] % (Auto) Eos % (Auto) Baso % (Auto) Neut # (Auto) Lymph # (Auto) [place] # (Auto) Eos # (Auto) Baso # (Auto) Neutrophils % (Manual) Band Neutrophils % Lymphocytes % (Manual) Monocytes % (Manual) Eosinophils % (Manual) Platelet Estimate RBC Morphology PT INR APTT D-Dimer, Quantitative pO2 VBG pH VBG pCO2 VBG HCO3 VBG Total CO2 VBG O2 Sat (Calc) VBG Base Excess VBG Potassium Glucose Lactate FiO2 Sodium Potassium Chloride Carbon Dioxide Anion Gap BUN Creatinine Est GFR ( Amer) Est GFR (Non-Af Amer) POC Glucose (mg/dL) 270 H 214 H 176 H Random Glucose Hemoglobin A1c Calcium Phosphorus Magnesium Total Bilirubin AST ALT Alkaline Phosphatase Total Protein Albumin Globulin Albumin/Globulin Ratio Venous Blood Potassium Urine Color Urine Clarity Urine pH Ur Specific [place] Urine Protein Urine Glucose (UA) Urine Ketones Urine Blood Urine Nitrate Urine Bilirubin Urine Urobilinogen Ur Leukocyte Esterase Urine RBC (Auto) Urine Microscopic WBC Urine Bacteria Fluid Type CSF Volume CSF Appearance CSF WBC CSF RBC CSF Total Cell Counted CSF Neutrophils CSF Lymphocytes CSF Monos/Macrophages CSF Comment CSF Glucose CSF Total Protein CSF VDRL HSV Source Description HSV I DNA PCR HSV II DNA PCR 01/22/18 01/22/18 01/22/18 03:57 05:50 05:50 WBC 11.3 H RBC 3.34 L Hgb 10.8 L Hct 31.9 L MCV 95.7 MCH 32.2 H MCHC 33.7 RDW 13.7 Plt Count 205 MPV 8.9 Neut % (Auto) 78.6 H Lymph % (Auto) 13.7 L [place] % (Auto) 7.1 Eos % (Auto) 0.5 Baso % (Auto) 0.1 Neut # (Auto) 8.9 H Lymph # (Auto) 1.6 [place] # (Auto) 0.8 Eos # (Auto) 0.1 Baso # (Auto) 0.0 Neutrophils % (Manual) Band Neutrophils % Lymphocytes % (Manual) Monocytes % (Manual) Eosinophils % (Manual) Platelet Estimate RBC Morphology PT INR APTT D-Dimer, Quantitative pO2 VBG pH VBG pCO2 VBG HCO3 VBG Total CO2 VBG O2 Sat (Calc) VBG Base Excess VBG Potassium Glucose Lactate FiO2 Sodium 141 Potassium 4.3 Chloride 108 H Carbon Dioxide 23 Anion Gap 14 BUN 18 H Creatinine 0.6 L Est GFR ( Amer) > 60 Est GFR (Non-Af Amer) > 60 POC Glucose (mg/dL) 161 H Random Glucose 145 H Hemoglobin A1c Calcium 9.0 Phosphorus Magnesium Total Bilirubin 0.2 AST 17 ALT 25 Alkaline Phosphatase 55 Total Protein 6.1 L Albumin 3.0 L D Globulin 3.1 Albumin/Globulin Ratio 1.0 Venous Blood Potassium Urine Color Urine Clarity Urine pH Ur Specific [place] Urine Protein Urine Glucose (UA) Urine Ketones Urine Blood Urine Nitrate Urine Bilirubin Urine Urobilinogen Ur Leukocyte Esterase Urine RBC (Auto) Urine Microscopic WBC Urine Bacteria Fluid Type CSF Volume CSF Appearance CSF WBC CSF RBC CSF Total Cell Counted CSF Neutrophils CSF Lymphocytes CSF Monos/Macrophages CSF Comment CSF Glucose CSF Total Protein CSF VDRL HSV Source Description HSV I DNA PCR HSV II DNA PCR 01/22/18 01/22/18 01/22/18 06:01 11:54 15:30 WBC RBC Hgb Hct MCV MCH MCHC RDW Plt Count MPV Neut % (Auto) Lymph % (Auto) [place] % (Auto) Eos % (Auto) Baso % (Auto) Neut # (Auto) Lymph # (Auto) [place] # (Auto) Eos # (Auto) Baso # (Auto) Neutrophils % (Manual) Band Neutrophils % Lymphocytes % (Manual) Monocytes % (Manual) Eosinophils % (Manual) Platelet Estimate RBC Morphology PT INR APTT D-Dimer, Quantitative pO2 VBG pH VBG pCO2 VBG HCO3 VBG Total CO2 VBG O2 Sat (Calc) VBG Base Excess VBG Potassium Glucose Lactate FiO2 Sodium Potassium Chloride Carbon Dioxide Anion Gap BUN Creatinine Est GFR ( Amer) Est GFR (Non-Af Amer) POC Glucose (mg/dL) 138 H 137 H 108 Random Glucose Hemoglobin A1c Calcium Phosphorus Magnesium Total Bilirubin AST ALT Alkaline Phosphatase Total Protein Albumin Globulin Albumin/Globulin Ratio Venous Blood Potassium Urine Color Urine Clarity Urine pH Ur Specific [place] Urine Protein Urine Glucose (UA) Urine Ketones Urine Blood Urine Nitrate Urine Bilirubin Urine Urobilinogen Ur Leukocyte Esterase Urine RBC (Auto) Urine Microscopic WBC Urine Bacteria Fluid Type CSF Volume CSF Appearance CSF WBC CSF RBC CSF Total Cell Counted CSF Neutrophils CSF Lymphocytes CSF Monos/Macrophages CSF Comment CSF Glucose CSF Total Protein CSF VDRL HSV Source Description HSV I DNA PCR HSV II DNA PCR Microbiology 01/20/18 16:00 Cerebral Spinal Fluid Gram Stain - Final 01/20/18 16:00 Cerebral Spinal Fluid CSF Culture - Preliminary NO GROWTH AFTER 2 DAYS 01/20/18 11:05 Blood Blood Culture - Preliminary NO GROWTH AFTER 48 HOURS 01/20/18 11:35 Urine,Clean Catch Urine Culture - Final 10-50,000 CFU/ML. MULTIPLE SPECIES. PROBABLE CONTAMINATION. Assessment and Plan (1) Fever with chills Status: Acute (2) Leukocytosis Status: Acute - Assessment and Plan (Free Text) Assessment: A/P- 72 year old female with PMH of DM II, HTN was admitted with fever/chills and ALCAZAR .. remains afebrile leukocytosis much improved today abd /pelvic ct reported as ? enteritis and ? pancreatic psudocyst or mass cxr reported as b/l ower lung filed atelactasis. UA- negative urine cx- contaminant blood cx- neg csf gram stain and cx- negative 48 hours CSF HSV PCR 1/2- negative Plan- d/c Iv acyclovir. advise to continue with IV zosyn today day #2. pt. can be d/c home tomm if remains well. can be d/c on oral levaquin 500 mg qd for 3 days as outpatient. Also advise GI evaluation for the pancreatic findings. all above d/w patient and she verbalizes full understanding of all above and agrees with above plan of care.
[2018-01-22 12:31] LABS: SPECIMEN SOURCE CSF
--- NOTE | 2018-01-22 12:38 | CP.PCM.PN ---
Subjective - Date & Time of Evaluation Date of Evaluation: 01/22/18 Time of Evaluation: 12:00 - Subjective Subjective: t has no fever feels better denies ALCAZAR, no dizziness no CP no SOB no cough no abd pain had one soft BM last night and once this am no leg pain Objective - Vital Signs/Intake and Output Vital Signs (last 24 hours): Temp Pulse Resp BP Pulse Ox 98.3 F 86 18 110/60 95 01/22/18 08:53 01/22/18 09:32 01/22/18 08:53 01/22/18 09:32 01/22/18 08:53 - Medications Medications: Current Medications Acetaminophen (Tylenol 325mg Tab) 650 mg PO Q6 PRN PRN Reason: Pain, Mild (1-3) Acetaminophen (Tylenol 325mg Tab) 650 mg PO Q6 PRN PRN Reason: Fever >100.4 F Aspirin (Ecotrin) 81 mg PO DAILY [facility] Last Admin: 01/22/18 09:24 Dose: 81 mg Atorvastatin Calcium (Lipitor) 20 mg PO DAILY [facility] Last Admin: 01/22/18 09:24 Dose: 20 mg Docusate Sodium (Colace) 100 mg PO BID [facility] Last Admin: 01/22/18 09:23 Dose: Not Given Enoxaparin Sodium (Lovenox) 40 mg SC DAILY [facility] PRN Reason: Protocol Last Admin: 01/22/18 09:25 Dose: 40 mg Sodium Chloride (Sodium Chloride 0.9%) 1,000 mls @ 100 mls/hr IV .Q10H [facility] Last Admin: 01/20/18 18:54 Dose: 100 mls/hr Acyclovir 500 mg/ Sodium (Chloride) 100 mls @ 100 mls/hr IVPB Q8 [facility] PRN Reason: Protocol Last Admin: 01/22/18 09:30 Dose: 100 mls/hr Piperacillin Sod/Tazobactam (Sod 3.375 gm/ Sodium Chloride) 100 mls @ 100 mls/ hr IVPB Q6 [facility] PRN Reason: Protocol Last Admin: 01/22/18 09:28 Dose: 100 mls/hr Lisinopril (Zestril) 5 mg PO DAILY [facility] Last Admin: 01/22/18 09:32 Dose: 5 mg Metformin HCl (Glucophage) 1,000 mg PO BID [facility] Last Admin: 01/22/18 09:24 Dose: 1,000 mg Pantoprazole Sodium (Protonix Ec Tab) 40 mg PO DAILY [facility] Last Admin: 01/22/18 09:26 Dose: 40 mg - Labs Labs: 01/22/18 05:50 01/22/18 05:50 PT 11.5 Seconds (9.8-13.1) 01/20/18 11:05 INR 1.0 (0.9-1.2) 01/20/18 11:05 APTT 32.1 Seconds (25.6-37.1) 01/20/18 11:05 - Constitutional Appears: Non-toxic, No Acute Distress - Head Exam Head Exam: ATRAUMATIC, NORMAL INSPECTION, NORMOCEPHALIC - Eye Exam Eye Exam: EOMI - ENT Exam ENT Exam: Mucous Membranes Moist, Normal External Ear Exam - Neck Exam Neck Exam: Full ROM. absent: Meningismus - Respiratory Exam Respiratory Exam: NORMAL BREATHING PATTERN. absent: Respiratory Distress - Cardiovascular Exam Cardiovascular Exam: REGULAR RHYTHM, +S1, +S2 - GI/Abdominal Exam GI & Abdominal Exam: Soft, Normal Bowel Sounds. absent: Tenderness - Extremities Exam Extremities Exam: Full ROM, Normal Capillary Refill. absent: Calf Tenderness - Back Exam Back Exam: Full ROM. absent: CVA tenderness (L), CVA tenderness (R) - Neurological Exam Neurological Exam: Alert, Awake, CN II-XII Intact, Oriented x3 Neuro motor strength exam: Left Upper Extremity: 5, Right Upper Extremity: 5, Left Lower Extremity: 5, Right Lower Extremity: 5 - Psychiatric Exam Psychiatric exam: Normal Affect, Normal Mood - Skin Skin Exam: Dry, Normal Color, Warm Assessment and Plan (1) Fever with chills Status: Acute (2) Leukocytosis Status: Acute (3) Headache Status: Acute (4) Pancreatic mass Status: Chronic (5) DMII (diabetes mellitus, type 2) Status: Chronic - Assessment and Plan (Free Text) Assessment: 72 y/o female with hx of DM type II, Pancreatic cyst , was brought in bec of fever , chills and headache. In the ED found to have fever and leukocytosis. Lumbar Puncture was done and CSF Cell Count showed WBC=22 with lymphocyte predominace, CSF Glucose and protein normal. (1) Fever with chills, Leukocytosis and Headache Status: Acute unclear etiology question of Aseptic Meningitis - check CSF HSV, Enterovirus - empirically started on IV Ceftriaxone, Vanco and Acyclovir - ID consulted - Dr Davalos rec to d/c IV Vanco and Ceftriaxone since CSF analysis was not compatible with Bacterial Meningitis - rec to start IV Zosyn and to cont IV Acyclovir - Pancultured - Blood c/s negative so far, CSF : neg Gram stain, Urine c/s : multiple species - CXR showed Atelectasis , scarring- however pt has no resp sxs.- no cough - pt started on IV Zosyn - at present pt is afebrile, denies ALCAZAR, no [employer] 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 HTN cont Lisinopril 5. Right thigh pain, resolved Doppler Us ruled out DVT Femur xray : no fracture DVT proph -Lovenox
[2018-01-22] MEDS: Sodium Chloride 0.9% 1,000 ML IV SCH (21:36)
[2018-01-23] MEDS: Acyclovir 500 MG in Sodium Chloride 0.9% 100 ML IVPB SCH ×2 (00:52→09:16)
[2018-01-23] MEDS: Piperacillin/Tazobact 3.375 GM in Sodium Chloride 0.9% 100 ML IVPB SCH ×2 (03:34→10:38)
[2018-01-23] MEDS: Sodium Chloride 0.9% 1,000 ML IV SCH (05:15)
[2018-01-23 06:25] LABS: BASO % 0.4 % (0.0-2.0); EOS # 0.3 K/uL (0.0-0.7); EOS % 3.8 % (0.0-4.0); HEMOGLOBIN 11.3 g/dL (12.0-16.0); LYMPH # 2.2 K/uL (1.0-4.3); MEAN CELL VOLUME 95.5 fl (81.0-99.0); MEAN CORPUSCULAR HEMOGLOBIN 31.5 pg (27.0-31.0); MEAN PLATELET VOLUME 8.9 fl (7.2-11.7); MONO # 0.6 K/uL (0.0-0.8); MONO % 7.7 % (0.0-10.0); NEUT # 4.1 K/uL (1.8-7.0); NEUT % 57.1 % (50.0-75.0); RBC 3.59 Mil/uL (3.80-5.20); RED CELL DISTRIBUTION WIDTH 13.5 % (11.5-14.5); WHITE BLOOD COUNT 7.2 K/uL (4.8-10.8)
[2018-01-23 06:29] LABS: BLOOD UREA NITROGEN 14 mg/dl (7-17); CALCIUM 8.9 mg/dL (8.4-10.2); GFR AFRICAN-AMERICAN > 60; GFR NON-AFRICAN AMERICAN > 60
[2018-01-23 08:03] VITALS: BP 121/65; PULSE 66; RESP 20; TEMP 98.1; O2SAT 97
--- NOTE | 2018-01-23 08:35 | CP.PCM.PN ---
Subjective - Date & Time of Evaluation Date of Evaluation: 01/23/18 Time of Evaluation: 08:35 Objective - Vital Signs/Intake and Output Vital Signs (last 24 hours): Temp Pulse Resp BP Pulse Ox 98.1 F 66 20 121/65 97 01/23/18 08:02 01/23/18 08:02 01/23/18 08:02 01/23/18 08:02 01/23/18 08:02 - Medications Medications: Current Medications Acetaminophen (Tylenol 325mg Tab) 650 mg PO Q6 PRN PRN Reason: Pain, Mild (1-3) Acetaminophen (Tylenol 325mg Tab) 650 mg PO Q6 PRN PRN Reason: Fever >100.4 F Aspirin (Ecotrin) 81 mg PO DAILY [facility] Last Admin: 01/22/18 09:24 Dose: 81 mg Atorvastatin Calcium (Lipitor) 20 mg PO DAILY [facility] Last Admin: 01/22/18 09:24 Dose: 20 mg Docusate Sodium (Colace) 100 mg PO BID [facility] Last Admin: 01/22/18 16:32 Dose: Not Given Enoxaparin Sodium (Lovenox) 40 mg SC DAILY [facility] PRN Reason: Protocol Last Admin: 01/22/18 09:25 Dose: 40 mg Sodium Chloride (Sodium Chloride 0.9%) 1,000 mls @ 100 mls/hr IV .Q10H [facility] Last Admin: 01/23/18 05:15 Dose: Not Given Acyclovir 500 mg/ Sodium (Chloride) 100 mls @ 100 mls/hr IVPB Q8 [facility] PRN Reason: Protocol Last Admin: 01/23/18 00:52 Dose: 100 mls/hr Piperacillin Sod/Tazobactam (Sod 3.375 gm/ Sodium Chloride) 100 mls @ 100 mls/ hr IVPB Q6 [facility] PRN Reason: Protocol Last Admin: 01/23/18 03:34 Dose: 100 mls/hr Lisinopril (Zestril) 5 mg PO DAILY [facility] Last Admin: 01/22/18 09:32 Dose: 5 mg Metformin HCl (Glucophage) 1,000 mg PO BID [facility] Last Admin: 01/22/18 16:28 Dose: 1,000 mg Pantoprazole Sodium (Protonix Ec Tab) 40 mg PO DAILY [facility] Last Admin: 01/22/18 09:26 Dose: 40 mg - Labs Labs: 01/23/18 05:35 01/23/18 05:35 PT 11.5 Seconds (9.8-13.1) 01/20/18 11:05 INR 1.0 (0.9-1.2) 01/20/18 11:05 APTT 32.1 Seconds (25.6-37.1) 01/20/18 11:05 Assessment and Plan - Assessment and Plan (Free Text) Plan: 72 y/o female with hx of DM type II, Pancreatic cyst , was brought in bec of fever , chills and headache. In the ED found to have fever and leukocytosis. Lumbar Puncture was done and CSF Cell Count showed WBC=22 with lymphocyte predominace, CSF Glucose and protein normal. (1) Fever with chills, Leukocytosis and Headache Status: Acute unclear etiology question of Aseptic Meningitis - check CSF HSV, Enterovirus - empirically started on IV Ceftriaxone, Vanco and Acyclovir - ID consulted - Dr Davalos rec to d/c IV Vanco and Ceftriaxone since CSF analysis was not compatible with Bacterial Meningitis - rec to start IV Zosyn and to cont IV Acyclovir - Pancultured - Blood c/s negative so far, CSF : neg Gram stain, Urine c/s : multiple species - CXR showed Atelectasis , scarring- however pt has no resp sxs.- no cough - pt started on IV Zosyn - at present pt is afebrile, denies ALCAZAR, 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 HTN cont Lisinopril 5. Right thigh pain, resolved Doppler Us ruled out DVT Femur xray : no fracture DVT proph -Lovenox
[2018-01-23] MEDS: Enoxaparin 40 mg Syringe SC SCH (09:15)
[2018-01-23] MEDS: Pantoprazole 40 mg EC Tab PO SCH (09:16)
--- NOTE | 2018-01-23 11:46 | CP.PCM.DIS ---
Provider - Provider Date of Admission: 01/20/18 13:51 Attending physician: Charles Thornton MD Time Spent in preparation of Discharge (in minutes): 30 Hospital Course - Lab Results Lab Results: Micro Results 01/20/18 11:05 Blood Blood Culture - Preliminary NO GROWTH AFTER 3 DAYS 01/21/18 22:39 Urine Urine Culture - Final No Growth (<1,000 CFU/ML) 01/20/18 16:00 Cerebral Spinal Fluid Gram Stain - Final 01/20/18 16:00 Cerebral Spinal Fluid CSF Culture - Preliminary NO GROWTH AFTER 3 DAYS 01/20/18 11:35 Urine,Clean Catch Urine Culture - Final 10-50,000 CFU/ML. MULTIPLE SPECIES. PROBABLE CONTAMINATION. Most Recent Lab Values WBC 7.2 K/uL (4.8-10.8) 01/23/18 05:35 RBC 3.59 Mil/uL (3.80-5.20) L 01/23/18 05:35 Hgb 11.3 g/dL (12.0-16.0) L 01/23/18 05:35 Hct 34.3 % (34.0-47.0) 01/23/18 05:35 MCV 95.5 fl (81.0-99.0) 01/23/18 05:35 MCH 31.5 pg (27.0-31.0) H 01/23/18 05:35 MCHC 33.0 g/dL (33.0-37.0) 01/23/18 05:35 RDW 13.5 % (11.5-14.5) 01/23/18 05:35 Plt Count 235 K/uL (130-400) 01/23/18 05:35 MPV 8.9 fl (7.2-11.7) 01/23/18 05:35 Neut % (Auto) 57.1 % (50.0-75.0) 01/23/18 05:35 Lymph % (Auto) 31.0 % (20.0-40.0) 01/23/18 05:35 [place] % (Auto) 7.7 % (0.0-10.0) 01/23/18 05:35 Eos % (Auto) 3.8 % (0.0-4.0) 01/23/18 05:35 Baso % (Auto) 0.4 % (0.0-2.0) 01/23/18 05:35 Neut # (Auto) 4.1 K/uL (1.8-7.0) 01/23/18 05:35 Lymph # (Auto) 2.2 K/uL (1.0-4.3) 01/23/18 05:35 [place] # (Auto) 0.6 K/uL (0.0-0.8) 01/23/18 05:35 Eos # (Auto) 0.3 K/uL (0.0-0.7) 01/23/18 05:35 Baso # (Auto) 0.0 K/uL (0.0-0.2) 01/23/18 05:35 Neutrophils % (Manual) 94 % (42-75) H 01/21/18 06:40 Band Neutrophils % 2 % (0-2) 01/21/18 06:40 Lymphocytes % (Manual) 3 % (20-50) L 01/21/18 06:40 Monocytes % (Manual) 1 % (0-10) 01/21/18 06:40 Eosinophils % (Manual) 1 % (0-7) 01/20/18 11:05 Platelet Estimate Normal (NORMAL) 01/21/18 06:40 RBC Morphology Normal (NORMAL) 01/21/18 06:40 PT 11.5 Seconds (9.8-13.1) 01/20/18 11:05 INR 1.0 (0.9-1.2) 01/20/18 11:05 APTT 32.1 Seconds (25.6-37.1) 01/20/18 11:05 D-Dimer, Quantitative 172 ng/mlDDU (0-230) 01/20/18 21:39 pO2 46 mm/Hg (30-55) 01/20/18 11:15 VBG pH 7.44 (7.32-7.43) H 01/20/18 11:15 VBG pCO2 43 mmHg (40-60) 01/20/18 11:15 VBG HCO3 28.0 mmol/L 01/20/18 11:15 VBG Total CO2 30.5 mmol/L (22-28) H 01/20/18 11:15 VBG O2 Sat (Calc) 89.0 % (40-65) H 01/20/18 11:15 VBG Base Excess 4.4 mmol/L (0.0-2.0) H 01/20/18 11:15 VBG Potassium 3.4 mmol/L (3.6-5.2) L 01/20/18 11:15 Sodium 135.0 mmol/L (132-148) 01/20/18 11:15 Chloride 102.0 mmol/L (98-107) 01/20/18 11:15 Glucose 151 mg/dL (65-105) H 01/20/18 11:15 Lactate 1.9 mmol/L (0.7-2.1) 01/20/18 11:15 FiO2 21.0 % 01/20/18 11:15 Sodium 144 mmol/l (132-148) 01/23/18 05:35 Potassium 4.1 MMOL/L (3.6-5.0) 01/23/18 05:35 Chloride 111 mmol/L (98-107) H 01/23/18 05:35 Carbon Dioxide 27 mmol/L (22-30) 01/23/18 05:35 Anion Gap 10 (10-20) 01/23/18 05:35 BUN 14 mg/dl (7-17) 01/23/18 05:35 Creatinine 0.7 mg/dl (0.7-1.2) 01/23/18 05:35 Est GFR ( Amer) > 60 01/23/18 05:35 Est GFR (Non-Af Amer) > 60 01/23/18 05:35 POC Glucose (mg/dL) 119 mg/dL (65-110) H 01/23/18 06:16 Random Glucose 125 mg/dL (65-105) H 01/23/18 05:35 Hemoglobin A1c 7.3 % (4.2-6.5) H D 01/21/18 06:40 Calcium 8.9 mg/dL (8.4-10.2) 01/23/18 05:35 Phosphorus 2.4 mg/dl (2.5-4.5) L 01/20/18 11:05 Magnesium 1.6 MG/DL (1.6-2.3) 01/20/18 11:05 Total Bilirubin 0.2 mg/dl (0.2-1.3) 01/22/18 05:50 AST 17 U/L (14-36) 01/22/18 05:50 ALT 25 U/L (9-52) 01/22/18 05:50 Alkaline Phosphatase 55 U/L (38-126) 01/22/18 05:50 Total Protein 6.1 G/DL (6.3-8.2) L 01/22/18 05:50 Albumin 3.0 g/dL (3.5-5.0) L D 01/22/18 05:50 Globulin 3.1 gm/dL (2.2-3.9) 01/22/18 05:50 Albumin/Globulin Ratio 1.0 (1.0-2.1) 01/22/18 05:50 Venous Blood Potassium 3.4 mmol/L (3.6-5.2) L 01/20/18 11:15 Urine Color Yellow (YELLOW) 01/20/18 11:35 Urine Clarity Slighty-cloudy (Clear) 01/20/18 11:35 Urine pH 7.0 (5.0-8.0) 01/20/18 11:35 Ur Specific [place] 1.016 (1.003-1.030) 01/20/18 11:35 Urine Protein Negative mg/dL (NEGATIVE) 01/20/18 11:35 Urine Glucose (UA) 50 mg/dL (Normal) 01/20/18 11:35 Urine Ketones Negative mg/dL (NEGATIVE) 01/20/18 11:35 Urine Blood Negative (NEGATIVE) 01/20/18 11:35 Urine Nitrate Negative (NEGATIVE) 01/20/18 11:35 Urine Bilirubin Negative (NEGATIVE) 01/20/18 11:35 Urine Urobilinogen 0.2-1.0 mg/dL (0.2-1.0) 01/20/18 11:35 Ur Leukocyte Esterase Neg [place]/uL (Negative) 01/20/18 11:35 Urine RBC (Auto) 3 /hpf (0-3) 01/20/18 11:35 Urine Microscopic WBC < 1 /hpf (0-5) 01/20/18 11:35 Urine Bacteria Rare (<OCC) 01/20/18 11:35 Fluid Type Spinal fluid 01/20/18 16:00 CSF Volume 1 mL (0-1) 01/20/18 16:00 CSF Appearance Clear/colorless (CLEAR) 01/20/18 16:00 CSF WBC 1.0 /mm3 (0.0-5.0) 01/20/18 16:00 CSF RBC 0.0 /mm3 (0.0-0.0) 01/20/18 16:00 CSF Total Cell Counted 22 (0-0) H 01/20/18 16:00 CSF Neutrophils 1 % (0-0) H 01/20/18 16:00 CSF Lymphocytes 16.0 % (0-0) H 01/20/18 16:00 CSF Monos/Macrophages 1 % (0-0) H 01/20/18 16:00 CSF Comment Clear 01/20/18 16:00 CSF Glucose 74 mg/dL (40-70) H 01/20/18 16:00 CSF Total Protein 55.0 mg/dL (12-60) 01/20/18 16:00 CSF VDRL Nonreactive (Nonreactive) 01/20/18 16:00 HSV Source Description Csf 01/20/18 16:00 HSV I DNA PCR Not detected (Not Detected) 01/20/18 16:00 HSV II DNA PCR Not detected (Not Detected) 01/20/18 16:00 - Hospital Course Hospital Course: 72 y/o female with hx of DM type II, Pancreatic cyst , was brought in bec of fever , chills and headache. In the ED found to have fever and leukocytosis. Lumbar Puncture was done and CSF Cell Count showed WBC=22 with lymphocyte predominace, CSF Glucose and protein normal. Patient evaluted by ID, patient may be discharged home with three days of Levaquin. (1) Fever with chills, Leukocytosis and Headache Status: Acute unclear etiology question of Aseptic Meningitis - check CSF HSV, Enterovirus - empirically started on IV Ceftriaxone, Vanco and Acyclovir - ID consulted - Dr Davalos rec to d/c IV Vanco and Ceftriaxone since CSF analysis was not compatible with Bacterial Meningitis - rec to start IV Zosyn and to cont IV Acyclovir- DISCONTINUE CHANGE TO PO LEVAQUIN - Pancultured - Blood c/s negative so far, CSF : neg Gram stain, Urine c/s : multiple species - CXR showed Atelectasis , scarring- however pt has no resp sxs.- no cough - pt started on IV Zosyn - at present pt is afebrile, denies ALCAZAR, 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 HTN cont Lisinopril 5. Right thigh pain, resolved Doppler Us ruled out DVT Femur xray : no fracture DVT proph -Lovenox Discharge Exam - Head Exam Additional comments: Vitals Reviewed GEN: WDWN, alert, cooperative HEENT: NCAT, PERRL, EOMI HEART: RRR, +S1S2, NO MRG LUNG: CTAB, NO WRR ABD: soft, NT, ND, No HSM, No masses EXT: normal pedal pulses, normal capillary refill NEURO: awake, alert, no focal deficits SKIN: warm, dry PSYCH: normal mood, normal affect Discharge Plan - Discharge Medications Prescriptions: Levofloxacin [Levaquin] 500 mg PO DAILY #3 tablet - Follow Up Plan Condition: STABLE Disposition: HOME/ ROUTINE Instructions: Fever, Adult (DC) Additional Instructions: april con thorpe doctor primario o la clinica. Referrals: [facility] [place] [Outside]
[2018-01-23 14:31] LABS: STREP PNEUMONIAE NEGATIVE (NEGATIVE); STREPTOCOCCUS B NEGATIVE (NEGATIVE)
[2018-01-23 14:32] LABS: N MENINGITIS ACY/W135 NEGATIVE (NEGATIVE); N MENINGITIS B/ECOLI K1 NEGATIVE (NEGATIVE)
[2018-01-24 14:21] LABS: CSF ALPHA-1-GLOBULIN 5.3 % (1.8-6.5); CSF ALPHA-2-GLOBULIN 7.9 % (4.6-10.8); CSF BETA GLOBULIN 13.7 % (7.8-18.2); CSF GAMMA GLOBULIN 10.6 % (4.8-17.6)
== END 2018-01-23 14:13 | disposition home or self-care (01) | DRG 574 ==
LOC: H.ER 09:28 → H.ERHOLD 13:51 → H.MEDSURG1 16:21
DX: D72.828 Other elevated white blood cell count (principal); K86.2 Cyst of pancreas; J98.11 Atelectasis; I10 Essential (primary) hypertension; E78.00 Pure hypercholesterolemia, unspecified; E11.9 Type 2 diabetes mellitus without complications; M17.11 Unilateral primary osteoarthritis, right knee; K59.00 Constipation, unspecified; Z85.42 Personal history of malignant neoplasm of other parts of uterus; Z92.3 Personal history of irradiation; Z92.21 Personal history of antineoplastic chemotherapy; Z79.84 Long term (current) use of oral hypoglycemic drugs; Z79.82 Long term (current) use of aspirin

== ENCOUNTER 2018-01-28 15:44 | Emergency (ER) | payer SELFPAY ==
[2018-01-28 17:42] LABS: BASO % 0.5 % (0.0-2.0); EOS # 0.4 K/uL (0.0-0.7); EOS % 4.3 % (0.0-4.0); HEMOGLOBIN 12.8 g/dL (12.0-16.0); LYMPH # 2.4 K/uL (1.0-4.3); LYMPH % 25.6 % (20.0-40.0); MEAN CELL VOLUME 96.4 fl (81.0-99.0); MEAN CORPUSCULAR HEMOGLOBIN 31.6 pg (27.0-31.0); MEAN CORPUSCULAR HGB CONC 32.7 g/dL (33.0-37.0); MEAN PLATELET VOLUME 8.2 fl (7.2-11.7); MONO # 0.5 K/uL (0.0-0.8); MONO % 5.3 % (0.0-10.0); NEUT # 5.9 K/uL (1.8-7.0); NEUT % 64.3 % (50.0-75.0); RBC 4.07 Mil/uL (3.80-5.20); RED CELL DISTRIBUTION WIDTH 13.6 % (11.5-14.5); WHITE BLOOD COUNT 9.2 K/uL (4.8-10.8)
[2018-01-28 18:03] LABS: ALB/GLOB RATIO 1.2 (1.0-2.1); ALBUMIN 4.3 g/dL (3.5-5.0); ALT/SGPT 32 U/L (9-52); AST/SGOT 31 U/L (14-36); BLOOD UREA NITROGEN 21 mg/dl (7-17); CALCIUM 9.7 mg/dL (8.4-10.2); GFR AFRICAN-AMERICAN > 60; GFR NON-AFRICAN AMERICAN > 60
[2018-01-28 18:05] LABS: PARTIAL THROMBOPLASTIN TIME 33.4 Seconds (25.6-37.1); PROTHROMBIN TIME 10.9 Seconds (9.8-13.1)
--- NOTE | 2018-01-28 18:35 | ED PDOC ---
HPI: Abdomen Time Seen by Provider: 01/28/18 16:57 Chief Complaint (Nursing): Abnormal Labs Past Medical History Vital Signs: Last Vital Signs Temp 97.8 F 01/28/18 16:24 Pulse 68 01/28/18 16:24 Resp 16 01/28/18 16:24 BP 116/60 01/28/18 16:24 Pulse Ox 96 01/28/18 16:24 - Medical History PMH: Diabetes, HTN, Hypercholesterolemia, Pancreatitis Denies: HIV, Chronic Kidney Disease - Surgical History Surgical History: Cholecystectomy - Family History Family History: States: Unknown Family Hx - Home Medications Home Medications: Ambulatory Orders Medication Instructions Recorded Lisinopril [Zestril] 5 mg PO DAILY 10/08/16 Metformin HCl [Glucophage] 1,000 mg PO BID 10/08/16 Simvastatin [Zocor] 40 mg PO DAILY 10/08/16 Aspirin [Ecotrin] 81 mg PO DAILY 01/20/18 Dicyclomine [Bentyl] 20 mg PO QID PRN #20 tab 01/28/18 - Allergies Allergies/Adverse Reactions: Allergies Allergy/AdvReac Type Severity Reaction Status Date / Time No Known Allergies Allergy Verified 01/28/18 16:23 - Laboratory Results Result Diagrams: 01/28/18 17:35 01/28/18 17:35 - ECG O2 Sat by Pulse Oximetry: 96 Disposition - Clinical Impression Clinical Impression: Abdominal pain - Disposition Referrals: [facility] [place] [Outside] - 01/30/18 Disposition: Routine/Home Disposition Time: 18:34 Condition: STABLE Prescriptions: Dicyclomine [Bentyl] 20 mg PO QID PRN #20 tab PRN Reason: abdominal pain Instructions: Acute Abdomen (Belly Pain) Print Language: IRISH
[2018-01-28 19:15] VITALS: BP 126/62; PULSE 71; RESP 18; TEMP 98.6; O2SAT 98
== END 2018-01-28 19:15 | disposition home or self-care (01) ==
LOC: H.ER 15:44
DX: R10.9 Unspecified abdominal pain (principal); E11.9 Type 2 diabetes mellitus without complications; E78.00 Pure hypercholesterolemia, unspecified; I10 Essential (primary) hypertension; K85.90 Acute pancreatitis without necrosis or infection, unspecified; Z79.82 Long term (current) use of aspirin
CPT/HCPCS: 80053; 85025; 85610; 85730; 99281; G0328

== ENCOUNTER 2018-03-18 09:12 | Observation (INO) | payer MEDICAID, SELFPAY ==
[2018-03-18 09:14] VITALS: BMI 29.2
[2018-03-18 09:42] LABS: VENOUS BLOOD GAS BASE EXCESS 3.2 mmol/L (0.0-2.0); VENOUS BLOOD GAS PCO2 42 mmHg (40-60); VENOUS BLOOD GAS PO2 37 mm/Hg (30-55); VENOUS BLOOD PH 7.43 (7.32-7.43)
[2018-03-18 09:46] LABS: BASO % 0.1 % (0.0-2.0); EOS % 0.2 % (0.0-4.0); HEMOGLOBIN 12.6 g/dL (12.0-16.0); LYMPH # 0.7 K/uL (1.0-4.3); LYMPH % 3.8 % (20.0-40.0); MEAN CELL VOLUME 94.9 fl (81.0-99.0); MEAN CORPUSCULAR HEMOGLOBIN 31.7 pg (27.0-31.0); MEAN CORPUSCULAR HGB CONC 33.4 g/dL (33.0-37.0); MEAN PLATELET VOLUME 8.7 fl (7.2-11.7); MONO # 0.8 K/uL (0.0-0.8); MONO % 4.5 % (0.0-10.0); NEUT # 16.2 K/uL (1.8-7.0); NEUT % 91.4 % (50.0-75.0); PLATELET COUNT 248 K/uL (130-400); RBC 3.98 Mil/uL (3.80-5.20); RED CELL DISTRIBUTION WIDTH 13.7 % (11.5-14.5); WHITE BLOOD COUNT 17.7 K/uL (4.8-10.8)
[2018-03-18 09:49] LABS: INR 1.1; PROTHROMBIN TIME 11.7 Seconds (9.8-13.1)
[2018-03-18 09:52] LABS: PARTIAL THROMBOPLASTIN TIME 32.6 Seconds (25.6-37.1)
[2018-03-18] MEDS ORDERED: Sodium Chloride 0.9% 1,000 ML IV STA (10:06)
[2018-03-18 10:09] LABS: ALB/GLOB RATIO 1.2 (1.0-2.1); ALBUMIN 4.3 g/dL (3.5-5.0); ALT/SGPT 19 U/L (9-52); AST/SGOT 26 U/L (14-36); BLOOD UREA NITROGEN 13 mg/dl (7-17); CALCIUM 9.4 mg/dL (8.4-10.2); GFR NON-AFRICAN AMERICAN > 60
[2018-03-18 10:31] LABS: SQUAMOUS EPITHIAL 1 /hpf (0-5); URINE BACTERIA RARE (<OCC); URINE BILIRUBIN NEGATIVE (NEGATIVE); URINE BLOOD NEGATIVE (NEGATIVE); URINE CLARITY SLIGHTY-CLOUDY (Clear); URINE COLOR YELLOW (YELLOW); URINE GLUCOSE (UA) NEG (Normal); URINE LEUKOCYTE ESTERASE NEG Leu/uL (Negative); URINE PROTEIN 30 mg/dL (NEGATIVE); URINE UROBILINOGEN 0.2-1.0 mg/dL (0.2-1.0)
--- NOTE | 2018-03-18 10:39 | ED PDOC ---
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 Per patient's daughter, she has had a fever since 6AM today and was given Advil prior to arrival. Patient denies any associated chest pain, shortness of breath, cough, nausea, vomiting, diarrhea, dysuria or incontinence. No known sick contacts or recent travels as well. PMD: [facility] Past Medical History Reviewed: Historical Data, Nursing Documentation, Vital Signs Vital Signs: Last Vital Signs Temp 98.7 F 03/20/18 08:00 Pulse 85 03/20/18 09:00 Resp 20 03/20/18 08:00 BP 106/61 03/20/18 08:00 Pulse Ox 97 03/20/18 08:00 - Medical History PMH: Diabetes, HTN, Hypercholesterolemia, Pancreatitis Denies: HIV, Chronic Kidney Disease - Surgical History Surgical History: Cholecystectomy - Family History Family History: States: No Known Family Hx - Living Arrangements Living Arrangements: With Family - Social History Current smoker - smoking cessation education provided: No Alcohol: None Drugs: Denies - Home Medications Home Medications: Ambulatory Orders Medication Instructions Recorded Aspirin [Ecotrin] 81 mg PO DAILY #30 tabec 03/20/18 Ciprofloxacin [Cipro] 500 mg PO BID #14 tab 03/20/18 Lisinopril [Zestril] 5 mg PO DAILY #30 tab 03/20/18 Nystatin 60 gm TP TID #1 powder 03/20/18 - Allergies Allergies/Adverse Reactions: Allergies Allergy/AdvReac Type Severity Reaction Status Date / Time No Known Allergies Allergy Verified 01/28/18 16:23 Review of Systems ROS Statement: Except As Marked, All Systems Reviewed And Found Negative Constitutional: Positive for: Fever Cardiovascular: Negative for: Chest Pain Respiratory: Negative for: Cough, Shortness of Breath Gastrointestinal: Positive for: Abdominal Pain. Negative for: Nausea, Vomiting , Diarrhea Genitourinary Female: Negative for: Dysuria, Frequency, Incontinence, Hematuria Musculoskeletal: Positive for: Arm Pain, Back Pain, Leg Pain Neurological: Negative for: Weakness, Numbness Physical Exam - Reviewed Nursing Documentation Reviewed: Yes Vital Signs Reviewed: Yes - Physical Exam Appears: Positive for: Non-toxic Head Exam: Positive for: ATRAUMATIC, NORMAL INSPECTION, NORMOCEPHALIC Skin: Positive for: Normal Color, Warm, DRY Eye Exam: Positive for: EOMI, Normal appearance, PERRL ENT: Positive for: Normal ENT Inspection Neck: Positive for: Painless ROM, Supple Cardiovascular/Chest: Positive for: Regular Rate, Rhythm, Chest Non Tender Respiratory: Positive for: Normal Breath Sounds. Negative for: Wheezing Gastrointestinal/Abdominal: Positive for: Normal Exam, Soft. Negative for: Tenderness Back: Positive for: Normal Inspection. Negative for: L CVA Tenderness, R CVA Tenderness Extremity: Positive for: Normal ROM. Negative for: Pedal Edema, Deformity Neurologic/Psych: Positive for: Alert, Oriented. Negative for: Motor/Sensory Deficits - Laboratory Results Result Diagrams: 03/20/18 09:11 03/19/18 05:20 - ECG O2 Sat by Pulse Oximetry: 95 (RA) Pulse Ox Interpretation: Normal Medical Decision Making Medical Decision Making: Impression: Bodyaches, fever rule out flu, rule out infection, rule out electrolyte abnormality Plan: * Labs * Tylenol 650mg PO * IV Fluids * Urinalysis * Urine culture * Blood culture * Rapid flu Time: 1040 Rapid flu test negative Prior notes reviewed, patient with history of sepsis and pancreatic mass. Time: 1231 On reassessment, patient complaining of diffuse abdominal pain. Abdominal exam shows abdomen soft, non-tender and non-distended. CT Abdomen/Pelvis ordered for further evaluation. Time: 1326 Chest x-ray FINDINGS: LUNGS: No active pulmonary disease. PLEURA: No significant pleural effusion identified, no pneumothorax apparent. CARDIOVASCULAR: No radiographic findings to suggest acute or significant cardiovascular disease. OSSEOUS STRUCTURES: No significant abnormalities. VISUALIZED UPPER ABDOMEN: Normal. OTHER FINDINGS: None. IMPRESSION: No active disease. No significant interval change compared to the prior examination(s). Time: 1500 Patient signed out to Dr. Noguera pending CT Abdomen/Pelvis. Scribe Attestation: Documented by Xiao Abhi, acting as a scribe for Sejal Cope MD Provider Scribe Attestation: All medical record entries made by the Scribe were at my direction and personally dictated by me. I have reviewed the chart and agree that the record accurately reflects my personal performance of the history, physical exam, medical decision making, and the department course for this patient. I have also personally directed, reviewed, and agree with the discharge instructions and disposition. Disposition - Clinical Impression Clinical Impression: SIRS (systemic inflammatory response syndrome) - Patient ED Disposition Is Patient to be Admitted: Transfer of Care - Disposition Disposition: Transfer of Care Disposition Time: 15:00 Condition: STABLE Patient Signed Over To: Vladimir Noguera
[2018-03-18 12:22] LABS: BANDS 4 % (0-2); LYMPHOCYTE 5 % (20-50); MONOCYTE 4 % (0-10); NEUTROPHIL 87 % (42-75); PLATELET ESTIMATE NORMAL (NORMAL); TOTAL CELLS COUNTED 100
[2018-03-18] MEDS ORDERED: Iohexol 240 (50 ml) PO ONE (12:31)
[2018-03-18] MEDS ORDERED: Iohexol 240 (50 ml) ONE (12:43)
--- NOTE | 2018-03-18 13:27 | RAD ---
Date of service: 03/18/2018 HISTORY: Sepsis Patient COMPARISON: 01/20/2018 FINDINGS: LUNGS: No active pulmonary disease. PLEURA: No significant pleural effusion identified, no pneumothorax apparent. CARDIOVASCULAR: No radiographic findings to suggest acute or significant cardiovascular disease. OSSEOUS STRUCTURES: No significant abnormalities. VISUALIZED UPPER ABDOMEN: Normal. OTHER FINDINGS: None. IMPRESSION: No active disease. No significant interval change compared to the prior examination(s).
[2018-03-18] MEDS ORDERED: Iohexol 300 100 ML IJ ONE (14:41)
[2018-03-18] MEDS ORDERED: Sodium Chloride 0.9% 50 ML IV ONE (14:41)
--- NOTE | 2018-03-18 15:37 | ED PDOC ---
- Laboratory Results Result Diagrams: 03/18/18 09:33 03/18/18 09:33 - ECG O2 Sat by Pulse Oximetry: 95 (RA) Pulse Ox Interpretation: Normal Medical Decision Making Medical Decision Making: Time: 1500 Patient signed out to me by Dr. Cope pending CT Abdomen/Pelvis. Time: 1549 CT Abdomen/Pelvis FINDINGS: LOWER THORAX: Unremarkable. LIVER: Hepatic steatosis. No focal masses. No intrahepatic bile duct dilatation or perihepatic ascites. GALLBLADDER AND BILE DUCTS: Status post cholecystectomy. No abnormality is seen in the gallbladder fossa. PANCREAS: Cystic mass in the body of the pancreas measuring 15 mm. On the prior study this measured 14 x 14.5 mm. SPLEEN: Unremarkable. ADRENALS: Unremarkable. No mass. KIDNEYS AND URETERS: Unremarkable. No hydronephrosis. No solid mass. VASCULATURE: Unremarkable. No aortic aneurysm. BOWEL: Constipation without fecal impaction or obstruction. APPENDIX: Normal appendix. PERITONEUM: Unremarkable. No free fluid. No free air. LYMPH NODES: Unremarkable. No enlarged lymph nodes. BLADDER: Fell the bladder is partially decompressed. Nonetheless bladder wall thickening and perivesical inflammatory changes likely reflect cystitis. REPRODUCTIVE: Unremarkable. BONES: No acute fracture. Spinal stenosis identified at L3-4, L4-5. OTHER FINDINGS: None. IMPRESSION: Evidence of mild cystitis. No focal bladder wall abnormalities identified. Stable cystic mass in the body of the pancreas 1.5 cm. Additional benign and/or incidental findings described above. Time: [address] Alvarado, hospitalist and patient to be admitted under him due to SIRS. Scribe Attestation: Documented by Xiao Moe, acting as a scribe for Jose Noguera MD. Provider Scribe Attestation: All medical record entries made by the Scribe were at my direction and personally dictated by me. I have reviewed the chart and agree that the record accurately reflects my personal performance of the history, physical exam, medical decision making, and the department course for this patient. I have also personally directed, reviewed, and agree with the discharge instructions and disposition. Disposition - Clinical Impression Clinical Impression: SIRS (systemic inflammatory response syndrome) - POA Present On Arrival: None - Disposition Disposition: Hospitalized as Observation Patient Disposition Time: 16:05 Condition: FAIR Forms: [employer] (Sudanese)
--- NOTE | 2018-03-18 15:50 | CT ---
Date of service: 03/18/2018 PROCEDURE: CT Abdomen and Pelvis with contrast HISTORY: Abdominal pain. COMPARISON: 01/20/2018. CT abdomen and pelvis TECHNIQUE: Contrast dose: 95 cc Omnipaque 300. Radiation dose: Total exam DLP = 602.31 gerson gerson mGy-cm. This CT exam was performed using one or more of the following dose reduction techniques: Automated exposure control, adjustment of the mA and/or kV according to patient size, and/or use of iterative reconstruction technique. FINDINGS: LOWER THORAX: Unremarkable. LIVER: Hepatic steatosis. No focal masses. No intrahepatic bile duct dilatation or perihepatic ascites. GALLBLADDER AND BILE DUCTS: Status post cholecystectomy. No abnormality is seen in the gallbladder fossa. PANCREAS: Cystic mass in the body of the pancreas measuring 15 mm. On the prior study this measured 14 x 14.5 mm. SPLEEN: Unremarkable. ADRENALS: Unremarkable. No mass. KIDNEYS AND URETERS: Unremarkable. No hydronephrosis. No solid mass. VASCULATURE: Unremarkable. No aortic aneurysm. BOWEL: Constipation without fecal impaction or obstruction. APPENDIX: Normal appendix. PERITONEUM: Unremarkable. No free fluid. No free air. LYMPH NODES: Unremarkable. No enlarged lymph nodes. BLADDER: Fell the bladder is partially decompressed. Nonetheless bladder wall thickening and perivesical inflammatory changes likely reflect cystitis. REPRODUCTIVE: Unremarkable. BONES: No acute fracture. Spinal stenosis identified at L3-4, L4-5. OTHER FINDINGS: None. IMPRESSION: Evidence of mild cystitis. No focal bladder wall abnormalities identified. Stable cystic mass in the body of the pancreas 1.5 cm. Additional benign and/or incidental findings described above.
--- NOTE | 2018-03-18 17:02 | CP.PCM.HP ---
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 Patient reports hx of Uterine Cervical cancer that was treated years ago with chemo and radiation, also she reports suffering from Urinary urgency/frequency for the last 6 MO, but denies dysuria/hematuria at this time. Patient reports an episode of hematuria x1 6 MO ago, but is not clear if she looked for medical attention at that time. Patient denies any associated symptoms of chest pain, SOB, cough, diarrhea, blood in stools, palpitations. ROS: as per HPI PMD: [facility] PMH: DM type 2, Hx of Uterine CA/Cervical cancer (received chemo and radiation 13 years ago). OBGYN: [facility]: Denies [facility] ALLERGIES: NKA MEDS: Metformin ER 1000 mg PO QD SURG: Cholecystectomy. SOHx: Denies ETOH/smoking/ Rec drug use Next of Tracey: Daughter Khloe [phone] Code status: Full Code. ED course: VS reviewed: Temp 101.7F, BP 102/62, HR 119, RR20 CBC: WBC 17.7 ( LEUKOCYTOSIS) , Hb 12.6, Hto 37.7, Chemistry: unremarkable. STOOL OB: Negative. UA: unremarkable, Urine culture ordered and pending. BC done: pending results. Flu Test : Negative for influenza A/B CXR: Reports no active disease, no significnat changes from prior studies. CT Scan of Abdomen and Pelvis: Evidence of mild cystitis, no bladder wall abnormalities identified. Present on Admission - Present on Admission Any Indicators Present on Admission: No History of DVT/PE: No History of Uncontrolled Diabetes: No Urinary Catheter: No Decubitus Ulcer Present: No History Surgical Site Infection Following: None Past Patient History - Tetanus Immunizations Tetanus Immunization: Unknown - Past Medical History & Family History Past Medical History?: Yes - Past Social History Alcohol: None Drugs: Denies - CARDIAC Hx Hypercholesterolemia: Yes Hx Hypertension: Yes - PULMONARY Hx Respiratory Disorders: No - NEUROLOGICAL Hx Neurological Disorder: No - HEENT Hx HEENT Problems: No - RENAL Hx Chronic Kidney Disease: No - ENDOCRINE/METABOLIC Hx Endocrine Disorders: Yes Hx Diabetes Mellitus Type 2: Yes - HEMATOLOGICAL/ONCOLOGICAL Hx Human Immunodeficiency Virus (HIV): No - INTEGUMENTARY Hx Dermatological Problems: No - MUSCULOSKELETAL/RHEUMATOLOGICAL Hx Musculoskeletal Disorders: No - GASTROINTESTINAL Hx Pancreatitis: Yes - GENITOURINARY/GYNECOLOGICAL Hx Genitourinary Disorders: Yes Hx Uterine Cancer: Yes (treated with Radiation and chemo 13 yrs ago) Other/Comment: Hx cystitis - PSYCHIATRIC Hx Psychophysiologic Disorder: No Hx Substance Use: No - SURGICAL HISTORY Hx Cholecystectomy: Yes - ANESTHESIA Hx Anesthesia: Yes Hx Anesthesia Reactions: No Hx Malignant Hyperthermia: No Meds Allergies/Adverse Reactions: Allergies Allergy/AdvReac Type Severity Reaction Status Date / Time No Known Allergies Allergy Verified 01/28/18 16:23 Physical Exam - Constitutional Appears: No Acute Distress - Head Exam Head Exam: ATRAUMATIC, NORMOCEPHALIC - Eye Exam Eye Exam: EOMI, PERRL - ENT Exam ENT Exam: Mucous Membranes Moist - Respiratory Exam Respiratory Exam: Clear to Auscultation Bilateral. absent: Rales, Wheezes - Cardiovascular Exam Cardiovascular Exam: REGULAR RHYTHM, +S1, +S2 - GI/Abdominal Exam GI & Abdominal Exam: Normal Bowel Sounds, Soft, Tenderness (mild tenderness to the hypogastric area). absent: Distended, Guarding - Extremities Exam Extremities exam: Negative for: pedal edema - Back Exam Back exam: absent: CVA tenderness (L), CVA tenderness (R) - Neurological Exam Neurological exam: Alert, Oriented x3 - Psychiatric Exam Psychiatric exam: Normal Affect, Normal Mood - Skin Skin Exam: Dry, Normal Color, Warm Results - Vital Signs Recent Vital Signs: Last Vital Signs Temp 99.0 F 03/18/18 11:10 Pulse 89 03/18/18 11:10 Resp 21 03/18/18 11:10 BP 106/58 L 03/18/18 11:10 Pulse Ox 95 03/18/18 16:05 - Labs Result Diagrams: 03/18/18 09:33 03/18/18 09:33 Labs: Laboratory Results - last 24 hr 03/18/18 03/18/1818 09:26 09:30 09:33 WBC 17.7 H D RBC 3.98 Hgb 12.6 Hct 37.7 MCV 94.9 MCH 31.7 H MCHC 33.4 RDW 13.7 Plt Count 248 D MPV 8.7 Neut % (Auto) 91.4 H Lymph % (Auto) 3.8 L [place] % (Auto) 4.5 Eos % (Auto) 0.2 Baso % (Auto) 0.1 Neut # (Auto) 16.2 H Lymph # (Auto) 0.7 L [place] # (Auto) 0.8 Eos # (Auto) 0.0 Baso # (Auto) 0.0 Neutrophils % (Manual) 87 H Band Neutrophils % 4 H Lymphocytes % (Manual) 5 L Monocytes % (Manual) 4 Platelet Estimate Normal RBC Morphology Normal PT INR APTT pO2 37 VBG pH 7.43 VBG pCO2 42 VBG HCO3 26.8 VBG Total CO2 29.2 H VBG O2 Sat (Calc) 80.1 H VBG Base Excess 3.2 H VBG Potassium 3.8 Sodium 138.0 Chloride 106.0 Glucose 147 H Lactate 1.7 FiO2 21.0 Potassium Carbon Dioxide Anion Gap BUN Creatinine Est GFR ( Amer) Est GFR (Non-Af Amer) POC Glucose (mg/dL) 132 H Random Glucose Calcium Phosphorus Magnesium Total Bilirubin AST ALT Alkaline Phosphatase Total Protein Albumin Globulin Albumin/Globulin Ratio Venous Blood Potassium 3.8 Urine Color Urine Clarity Urine pH Ur Specific [place] Urine Protein Urine Glucose (UA) Urine Ketones Urine Blood Urine Nitrate Urine Bilirubin Urine Urobilinogen Ur Leukocyte Esterase Urine RBC (Auto) Urine Microscopic WBC Ur Squamous Epith Cells Urine Bacteria Influenza Typ A,B (EIA) 03/18/18 03/18/18 03/18/18 09:33 09:33 09:50 WBC RBC Hgb Hct MCV MCH MCHC RDW Plt Count MPV Neut % (Auto) Lymph % (Auto) [place] % (Auto) Eos % (Auto) Baso % (Auto) Neut # (Auto) Lymph # (Auto) [place] # (Auto) Eos # (Auto) Baso # (Auto) Neutrophils % (Manual) Band Neutrophils % Lymphocytes % (Manual) Monocytes % (Manual) Platelet Estimate RBC Morphology PT 11.7 INR 1.1 APTT 32.6 pO2 VBG pH VBG pCO2 VBG HCO3 VBG Total CO2 VBG O2 Sat (Calc) VBG Base Excess VBG Potassium Sodium 139 Chloride 105 Glucose Lactate FiO2 Potassium 3.9 Carbon Dioxide 23 Anion Gap 15 BUN 13 Creatinine 0.5 L Est GFR ( Amer) > 60 Est GFR (Non-Af Amer) > 60 POC Glucose (mg/dL) Random Glucose 145 H Calcium 9.4 Phosphorus 2.6 Magnesium 1.6 Total Bilirubin 0.5 AST 26 ALT 19 Alkaline Phosphatase 85 Total Protein 7.8 Albumin 4.3 Globulin 3.5 Albumin/Globulin Ratio 1.2 Venous Blood Potassium Urine Color Urine Clarity Urine pH Ur Specific [place] Urine Protein Urine Glucose (UA) Urine Ketones Urine Blood Urine Nitrate Urine Bilirubin Urine Urobilinogen Ur Leukocyte Esterase Urine RBC (Auto) Urine Microscopic WBC Ur Squamous Epith Cells Urine Bacteria Influenza Typ A,B (EIA) Negative for flu a/b 03/18/18 10:18 WBC RBC Hgb Hct MCV MCH MCHC RDW Plt Count MPV Neut % (Auto) Lymph % (Auto) [place] % (Auto) Eos % (Auto) Baso % (Auto) Neut # (Auto) Lymph # (Auto) [place] # (Auto) Eos # (Auto) Baso # (Auto) Neutrophils % (Manual) Band Neutrophils % Lymphocytes % (Manual) Monocytes % (Manual) Platelet Estimate RBC Morphology PT INR APTT pO2 VBG pH VBG pCO2 VBG HCO3 VBG Total CO2 VBG O2 Sat (Calc) VBG Base Excess VBG Potassium Sodium Chloride Glucose Lactate FiO2 Potassium Carbon Dioxide Anion Gap BUN Creatinine Est GFR ( Amer) Est GFR (Non-Af Amer) POC Glucose (mg/dL) Random Glucose Calcium Phosphorus Magnesium Total Bilirubin AST ALT Alkaline Phosphatase Total Protein Albumin Globulin Albumin/Globulin Ratio Venous Blood Potassium Urine Color Yellow Urine Clarity Slighty-cloudy Urine pH 6.0 Ur Specific [place] 1.021 Urine Protein 30 Urine Glucose (UA) Neg Urine Ketones Negative Urine Blood Negative Urine Nitrate Negative Urine Bilirubin Negative Urine Urobilinogen 0.2-1.0 Ur Leukocyte Esterase Neg Urine RBC (Auto) 1 Urine Microscopic WBC 1 Ur Squamous Epith Cells 1 Urine Bacteria Rare Influenza Typ A,B (EIA) Assessment & Plan - Assessment and Plan (Free Text) Assessment: 72 y/o Female admitted for Sepsis likely secondary to Cystitis, with PMHx of NIDDM type 2, Uterine CA/cervical CA treated with chemo and radiation 13 years ago. Plan: Sepsis likely secondary to Cystitis -Criteria met with : WBC 17.7, HR 119, Temp 101.7F -CT scan of Abdomen/Pelvis: Evidence of mild cystitis, no bladder wall abnormalities identified. -Admit to tele Observation -IVF with NS 100 ml/h -Rocephin 1 G IV QD -F/U CBC w/ diff, BMP, UA in AM -BC x2 -F/u Urine culture (results pending) -Acetaminophen 650 mg PO Q6h PRN fever NIDDM type 2 -Heart healthy/ Diabetic diet -Metformin SR 1000 mg PO QD DVT Prophylaxis -Lovenox 40 mg SC QD - Date & Time Date: 03/18/18 Time: 17:05 <Charles Thornton D - Last Filed: 03/19/18 09:47> Results - Vital Signs Recent Vital Signs: Last Vital Signs Temp 99.7 F H 03/19/18 08:55 Pulse 71 03/19/18 08:22 Resp 20 03/19/18 08:22 BP 149/89 03/19/18 08:22 Pulse Ox 98 03/19/18 08:22 - Labs Result Diagrams: 03/19/18 05:20 03/19/18 05:20 Labs: Laboratory Results - last 24 hr 03/18/18 03/18/18 03/18/18 09:26 09:33 09:33 WBC 17.7 H D RBC 3.98 Hgb 12.6 Hct 37.7 MCV 94.9 MCH 31.7 H MCHC 33.4 RDW 13.7 Plt Count 248 D MPV 8.7 Neut % (Auto) 91.4 H Lymph % (Auto) 3.8 L [place] % (Auto) 4.5 Eos % (Auto) 0.2 Baso % (Auto) 0.1 Neut # (Auto) 16.2 H Lymph # (Auto) 0.7 L [place] # (Auto) 0.8 Eos # (Auto) 0.0 Baso # (Auto) 0.0 Neutrophils % (Manual) 87 H Band Neutrophils % 4 H Lymphocytes % (Manual) 5 L Monocytes % (Manual) 4 Platelet Estimate Normal RBC Morphology Normal PT INR APTT Sodium 139 Potassium 3.9 Chloride 105 Carbon Dioxide 23 Anion Gap 15 BUN 13 Creatinine 0.5 L Est GFR ( Amer) > 60 Est GFR (Non-Af Amer) > 60 POC Glucose (mg/dL) 132 H Random Glucose 145 H Calcium 9.4 Phosphorus 2.6 Magnesium 1.6 Total Bilirubin 0.5 AST 26 ALT 19 Alkaline Phosphatase 85 Total Protein 7.8 Albumin 4.3 Globulin 3.5 Albumin/Globulin Ratio 1.2 Urine Color Urine Clarity Urine pH Ur Specific [place] Urine Protein Urine Glucose (UA) Urine Ketones Urine Blood Urine Nitrate Urine Bilirubin Urine Urobilinogen Ur Leukocyte Esterase Urine RBC (Auto) Urine Microscopic WBC Ur Squamous Epith Cells Urine Bacteria Influenza Typ A,B (EIA) 03/18/18 03/18/18 03/18/18 09:33 09:50 10:18 WBC RBC Hgb Hct MCV MCH MCHC RDW Plt Count MPV Neut % (Auto) Lymph % (Auto) [place] % (Auto) Eos % (Auto) Baso % (Auto) Neut # (Auto) Lymph # (Auto) [place] # (Auto) Eos # (Auto) Baso # (Auto) Neutrophils % (Manual) Band Neutrophils % Lymphocytes % (Manual) Monocytes % (Manual) Platelet Estimate RBC Morphology PT 11.7 INR 1.1 APTT 32.6 Sodium Potassium Chloride Carbon Dioxide Anion Gap BUN Creatinine Est GFR ( Amer) Est GFR (Non-Af Amer) POC Glucose (mg/dL) Random Glucose Calcium Phosphorus Magnesium Total Bilirubin AST ALT Alkaline Phosphatase Total Protein Albumin Globulin Albumin/Globulin Ratio Urine Color Yellow Urine Clarity Slighty-cloudy Urine pH 6.0 Ur Specific [place] 1.021 Urine Protein 30 Urine Glucose (UA) Neg Urine Ketones Negative Urine Blood Negative Urine Nitrate Negative Urine Bilirubin Negative Urine Urobilinogen 0.2-1.0 Ur Leukocyte Esterase Neg Urine RBC (Auto) 1 Urine Microscopic WBC 1 Ur Squamous Epith Cells 1 Urine Bacteria Rare Influenza Typ A,B (EIA) Negative for flu a/b 03/19/18 03/19/18 05:20 05:20 WBC 13.6 H RBC 3.69 L Hgb 11.7 L Hct 35.5 MCV 96.1 MCH 31.8 H MCHC 33.1 RDW 13.7 Plt Count 232 MPV 8.7 Neut % (Auto) 88.0 H Lymph % (Auto) 7.6 L [place] % (Auto) 3.9 Eos % (Auto) 0.2 Baso % (Auto) 0.3 Neut # (Auto) 12.0 H Lymph # (Auto) 1.0 [place] # (Auto) 0.5 Eos # (Auto) 0.0 Baso # (Auto) 0.0 Neutrophils % (Manual) Band Neutrophils % Lymphocytes % (Manual) Monocytes % (Manual) Platelet Estimate RBC Morphology PT INR APTT Sodium 139 Potassium 3.9 Chloride 108 H Carbon Dioxide 27 Anion Gap 8 L BUN 9 Creatinine 0.5 L Est GFR ( Amer) > 60 Est GFR (Non-Af Amer) > 60 POC Glucose (mg/dL) Random Glucose 114 H Calcium 8.9 Phosphorus Magnesium Total Bilirubin AST ALT Alkaline Phosphatase Total Protein Albumin Globulin Albumin/Globulin Ratio Urine Color Urine Clarity Urine pH Ur Specific [place] Urine Protein Urine Glucose (UA) Urine Ketones Urine Blood Urine Nitrate Urine Bilirubin Urine Urobilinogen Ur Leukocyte Esterase Urine RBC (Auto) Urine Microscopic WBC Ur Squamous Epith Cells Urine Bacteria Influenza Typ A,B (EIA) Attending/Attestation - Attestation I have personally seen and examined this patient.: Yes I have fully participated in the care of the patient.: Yes I have reviewed all pertinent clinical information: Yes
[2018-03-18] MEDS: Sodium Chloride 0.9% 1,000 ML IV SCH (17:20)
--- NOTE | 2018-03-18 18:18 | CARD ---
APPROVED REPORT Date of service: 03/18/2018 <Conclusion> Sinus tachycardia Otherwise normal ECG
[2018-03-19 06:11] LABS: BASO % 0.3 % (0.0-2.0); EOS % 0.2 % (0.0-4.0); HEMOGLOBIN 11.7 g/dL (12.0-16.0); LYMPH % 7.6 % (20.0-40.0); MEAN CELL VOLUME 96.1 fl (81.0-99.0); MEAN CORPUSCULAR HEMOGLOBIN 31.8 pg (27.0-31.0); MEAN CORPUSCULAR HGB CONC 33.1 g/dL (33.0-37.0); MEAN PLATELET VOLUME 8.7 fl (7.2-11.7); MONO # 0.5 K/uL (0.0-0.8); MONO % 3.9 % (0.0-10.0); RBC 3.69 Mil/uL (3.80-5.20); RED CELL DISTRIBUTION WIDTH 13.7 % (11.5-14.5); WHITE BLOOD COUNT 13.6 K/uL (4.8-10.8)
[2018-03-19 06:48] LABS: BLOOD UREA NITROGEN 9 mg/dl (7-17); CALCIUM 8.9 mg/dL (8.4-10.2); GFR NON-AFRICAN AMERICAN > 60
[2018-03-19] MEDS: Sodium Chloride 0.9% 1,000 ML IV SCH ×2 (07:13→17:26)
[2018-03-19] MEDS: Enoxaparin 40 mg Syringe SC SCH (08:42)
[2018-03-19] MEDS ORDERED: Glucagon Recombinant 1 mg Inj IM PRN (08:55)
[2018-03-19] MEDS ORDERED: Dextrose 50% SYRINGE Inj (50 ml) IV PRN (08:55)
--- NOTE | 2018-03-19 09:56 | CP.PCM.PN ---
<Tamara TuckerRocio - Last Filed: 03/19/18 13:49> Subjective - Date & Time of Evaluation Date of Evaluation: 03/19/18 Time of Evaluation: 08:50 - Subjective Subjective: Patient seen and examined thia AM, she is NAD, she c/o unspecific abdominal pain , that according to patient is mild in intensity 3/10 and described as a discomfort diffuse to the lower abdominal area. Patient denies chills today, ALCAZAR , N/V/D, dysuria, chest pain, palpitations. Objective - Vital Signs/Intake and Output Vital Signs (last 24 hours): Temp Pulse Resp BP Pulse Ox 99.7 F H 71 20 149/89 98 03/19/18 08:55 03/19/18 08:22 03/19/18 08:22 03/19/18 08:22 03/19/18 08:22 - Medications Medications: Current Medications Acetaminophen (Tylenol 325mg Tab) 650 mg PO Q6 PRN PRN Reason: Fever >100.4 F Last Admin: 03/18/18 17:23 Dose: 650 mg Acetaminophen (Tylenol 325mg Tab) 650 mg PO Q6 PRN PRN Reason: Pain, Mild (1-3) Last Admin: 03/19/18 08:55 Dose: 650 mg Dextrose (Dextrose 50% Inj) 0 ml IV STAT PRN; Protocol PRN Reason: Hypoglycemia Protocol Dextrose (Glutose 15) 0 gm PO ONCE PRN; Protocol PRN Reason: Hypoglycemia Protocol Dicyclomine HCl (Bentyl) 20 mg PO Q6 PRN PRN Reason: abdominal pain/cramps Enoxaparin Sodium (Lovenox) 40 mg SC DAILY MOISES PRN Reason: Protocol Last Admin: 03/19/18 08:42 Dose: 40 mg Glucagon (Glucagen Diagnostic Kit) 0 mg IM STAT PRN; Protocol PRN Reason: Hypoglycemia Protocol Sodium Chloride (Sodium Chloride 0.9%) 1,000 mls @ 100 mls/hr IV .Q10H [facility] Last Admin: 03/19/18 07:13 Dose: 100 mls/hr Ceftriaxone Sodium 1 gm/ (Sodium Chloride) 100 mls @ 100 mls/hr IVPB DAILY MOISES PRN Reason: Protocol Insulin Human Lispro (Humalog) 0 units SC ACHS [place]IS[place] PRN Reason: Protocol Ondansetron HCl (Zofran Inj) 4 mg IVP Q6 PRN PRN Reason: Nausea/Vomiting - Labs Labs: 03/19/18 05:20 03/19/18 05:20 PT 11.7 Seconds (9.8-13.1) 03/18/18 09:33 INR 1.1 03/18/18 09:33 APTT 32.6 Seconds (25.6-37.1) 03/18/18 09:33 - Additional Findings Additional findings: - Constitutional Appears: No Acute Distress - Head Exam Head Exam: ATRAUMATIC, NORMOCEPHALIC - Eye Exam Eye Exam: EOMI, PERRL - ENT Exam ENT Exam: Mucous Membranes Moist - Respiratory Exam Respiratory Exam: Clear to Auscultation Bilateral. absent: Rales, Wheezes - Cardiovascular Exam Cardiovascular Exam: REGULAR RHYTHM, +S1, +S2 - GI/Abdominal Exam GI & Abdominal Exam: Normal Bowel Sounds, Soft, Tenderness is diffuse and mild ( mainly tenderness to the RLQ area today). absent: Distended, Guarding - Extremities Exam Extremities exam: Negative for: pedal edema - Back Exam Back exam: absent: CVA tenderness (L), CVA tenderness (R) - Neurological Exam Neurological exam: Alert, Oriented x3 - Psychiatric Exam Psychiatric exam: Normal Affect, Normal Mood - Skin Skin Exam: Dry, Normal Color, Warm Assessment and Plan - Assessment and Plan (Free Text) Assessment: 72 y/o Female admitted for Sepsis likely secondary to Cystitis, with PMHx of NIDDM type 2, Uterine CA/cervical CA treated with chemo and radiation 13 years ago. Plan: Sepsis likely secondary to Cystitis -Criteria met upon admission with WBC 17.7, Bandemia 4, HR 119, Temp 101.7F -F/U WBC 03/19/18: 13.6, Bandemia resolved. -CT scan of Abdomen/Pelvis: Evidence of mild cystitis, no bladder wall abnormalities identified. -UA unremarkable upon admission, will f/u repeat UA -BC x2 first 24 h negative with pending gram stain. -Will f/u Urine culture. -Admit to tele -VS 03/19 WNL, continue monitoring of VS -IVF with NS 100 ml/h -Rocephin 1 G IV QD -Acetaminophen 650 mg PO Q6h PRN fever -Patient is stable, VS WNL, for now waiting pending UA, Urine C, BC and resolution of Leukocytosis. NIDDM type 2 -Heart healthy/ Diabetic diet -Insulin coverage SS DVT Prophylaxis -Lovenox 40 mg SC QD <Louisa Angel - Last Filed: 03/19/18 15:36> Objective - Vital Signs/Intake and Output Vital Signs (last 24 hours): Temp Pulse Resp BP Pulse Ox 98.5 F 83 18 91/54 L 95 03/19/18 12:33 03/19/18 12:33 03/19/18 12:33 03/19/18 12:33 03/19/18 12:33 - Medications Medications: Current Medications Acetaminophen (Tylenol 325mg Tab) 650 mg PO Q6 PRN PRN Reason: Fever >100.4 F Last Admin: 03/18/18 17:23 Dose: 650 mg Acetaminophen (Tylenol 325mg Tab) 650 mg PO Q6 PRN PRN Reason: Pain, Mild (1-3) Last Admin: 03/19/18 08:55 Dose: 650 mg Dextrose (Dextrose 50% Inj) 0 ml IV STAT PRN; Protocol PRN Reason: Hypoglycemia Protocol Dextrose (Glutose 15) 0 gm PO ONCE PRN; Protocol PRN Reason: Hypoglycemia Protocol Dicyclomine HCl (Bentyl) 20 mg PO Q6 PRN PRN Reason: abdominal pain/cramps Enoxaparin Sodium (Lovenox) 40 mg SC DAILY [place] PRN Reason: Protocol Last Admin: 03/19/18 08:42 Dose: 40 mg Glucagon (Glucagen Diagnostic Kit) 0 mg IM STAT PRN; Protocol PRN Reason: Hypoglycemia Protocol Sodium Chloride (Sodium Chloride 0.9%) 1,000 mls @ 100 mls/hr IV .Q10H [facility] Last Admin: 03/19/18 07:13 Dose: 100 mls/hr Ceftriaxone Sodium 1 gm/ (Sodium Chloride) 100 mls @ 100 mls/hr IVPB DAILY [place] PRN Reason: Protocol Last Admin: 03/19/18 11:16 Dose: 100 mls/hr Insulin Human Lispro (Humalog) 0 units SC ACHS [place] PRN Reason: Protocol Last Admin: 03/19/18 13:23 Dose: Not Given Ondansetron HCl (Zofran Inj) 4 mg IVP Q6 PRN PRN Reason: Nausea/Vomiting - Labs Labs: 03/19/18 05:20 03/19/18 05:20 PT 11.7 Seconds (9.8-13.1) 03/18/18 09:33 INR 1.1 03/18/18 09:33 APTT 32.6 Seconds (25.6-37.1) 03/18/18 09:33 Attending/Attestation - Attestation I have personally seen and examined this patient.: Yes I have fully participated in the care of the patient.: Yes I have reviewed all pertinent clinical information, including history, physical exam and plan: Yes Notes (Text): 03/19/18 15:36 Seen, examined, and discussed with resident. Agree with findings and plan as above.
[2018-03-19] MEDS: Insulin Lispro (humaLOG) 100 Units/ml Inj SC SCH ×2 (13:23→17:23)
[2018-03-19] MEDS ORDERED: Sodium Chloride 0.9% 250 ML IV ONE (18:14)
[2018-03-20] MEDS: Insulin Lispro (humaLOG) 100 Units/ml Inj SC SCH ×3 (01:24→13:47)
[2018-03-20 08:20] VITALS: BP 106/61; PULSE 85; RESP 20; TEMP 98.7
[2018-03-20 09:17] LABS: MEAN CELL VOLUME 94.6 fl (81.0-99.0); MEAN CORPUSCULAR HGB CONC 33.8 g/dL (33.0-37.0); RBC 3.76 Mil/uL (3.80-5.20); WHITE BLOOD COUNT 7.8 K/uL (4.8-10.8)
[2018-03-20] MEDS: Enoxaparin 40 mg Syringe SC SCH (09:53)
[2018-03-20] MEDS: Sodium Chloride 0.9% 1,000 ML IV SCH (09:53)
--- NOTE | 2018-03-20 10:26 | CP.PCM.DIS ---
Provider - Provider Date of Admission: 03/19/18 08:56 Attending physician: Charles Thornton MD Time Spent in preparation of Discharge (in minutes): 35 Diagnosis - Discharge Diagnosis (1) Cystitis Status: Acute (2) Sepsis Status: Resolved (3) Diabetes Status: Chronic (4) Candidiasis, intertrigo Status: Acute Hospital Course - Lab Results Lab Results: Micro Results 03/18/18 09:50 Blood Blood Culture - Preliminary NO GROWTH AFTER 48 HOURS 03/18/18 09:33 Blood Blood Culture - Preliminary NO GROWTH AFTER 48 HOURS 03/18/18 12:00 Urine,Clean Catch Urine Culture - Final 10-50,000 CFU/ML. MULTIPLE SPECIES. PROBABLE CONTAMINATION. Most Recent Lab Values WBC 7.8 K/uL (4.8-10.8) 03/20/18 09:11 RBC 3.76 Mil/uL (3.80-5.20) L 03/20/18 09:11 Hgb 12.0 g/dL (12.0-16.0) 03/20/18 09:11 Hct 35.6 % (34.0-47.0) 03/20/18 09:11 MCV 94.6 fl (81.0-99.0) 03/20/18 09:11 MCH 32.0 pg (27.0-31.0) H 03/20/18 09:11 MCHC 33.8 g/dL (33.0-37.0) 03/20/18 09:11 RDW 14.0 % (11.5-14.5) 03/20/18 09:11 Plt Count 238 K/uL (130-400) 03/20/18 09:11 MPV 8.7 fl (7.2-11.7) 03/19/18 05:20 Neut % (Auto) 88.0 % (50.0-75.0) H 03/19/18 05:20 Lymph % (Auto) 7.6 % (20.0-40.0) L 03/19/18 05:20 [place] % (Auto) 3.9 % (0.0-10.0) 03/19/18 05:20 Eos % (Auto) 0.2 % (0.0-4.0) 03/19/18 05:20 Baso % (Auto) 0.3 % (0.0-2.0) 03/19/18 05:20 Neut # (Auto) 12.0 K/uL (1.8-7.0) H 03/19/18 05:20 Lymph # (Auto) 1.0 K/uL (1.0-4.3) 03/19/18 05:20 [place] # (Auto) 0.5 K/uL (0.0-0.8) 03/19/18 05:20 Eos # (Auto) 0.0 K/uL (0.0-0.7) 03/19/18 05:20 Baso # (Auto) 0.0 K/uL (0.0-0.2) 03/19/18 05:20 Neutrophils % (Manual) 87 % (42-75) H 03/18/18 09:33 Band Neutrophils % 4 % (0-2) H 03/18/18 09:33 Lymphocytes % (Manual) 5 % (20-50) L 03/18/18 09:33 Monocytes % (Manual) 4 % (0-10) 03/18/18 09:33 Platelet Estimate Normal (NORMAL) 03/18/18 09:33 RBC Morphology Normal (NORMAL) 03/18/18 09:33 PT 11.7 Seconds (9.8-13.1) 03/18/18 09:33 INR 1.1 03/18/18 09:33 APTT 32.6 Seconds (25.6-37.1) 03/18/18 09:33 pO2 37 mm/Hg (30-55) 03/18/18 09:30 VBG pH 7.43 (7.32-7.43) 03/18/18 09:30 VBG pCO2 42 mmHg (40-60) 03/18/18 09:30 VBG HCO3 26.8 mmol/L 03/18/18 09:30 VBG Total CO2 29.2 mmol/L (22-28) H 03/18/18 09:30 VBG O2 Sat (Calc) 80.1 % (40-65) H 03/18/18 09:30 VBG Base Excess 3.2 mmol/L (0.0-2.0) H 03/18/18 09:30 VBG Potassium 3.8 mmol/L (3.6-5.2) 03/18/18 09:30 Sodium 138.0 mmol/L (132-148) 03/18/18 09:30 Chloride 106.0 mmol/L (98-107) 03/18/18 09:30 Glucose 147 mg/dL (65-105) H 03/18/18 09:30 Lactate 1.7 mmol/L (0.7-2.1) 03/18/18 09:30 FiO2 21.0 % 03/18/18 09:30 Sodium 139 mmol/l (132-148) 03/19/18 05:20 Potassium 3.9 MMOL/L (3.6-5.0) 03/19/18 05:20 Chloride 108 mmol/L (98-107) H 03/19/18 05:20 Carbon Dioxide 27 mmol/L (22-30) 03/19/18 05:20 Anion Gap 8 (10-20) L 03/19/18 05:20 BUN 9 mg/dl (7-17) 03/19/18 05:20 Creatinine 0.5 mg/dl (0.7-1.2) L 03/19/18 05:20 Est GFR ( Amer) > 60 03/19/18 05:20 Est GFR (Non-Af Amer) > 60 03/19/18 05:20 POC Glucose (mg/dL) 118 mg/dL (65-110) H 03/19/18 21:10 Random Glucose 114 mg/dL (65-105) H 03/19/18 05:20 Calcium 8.9 mg/dL (8.4-10.2) 03/19/18 05:20 Phosphorus 2.6 mg/dl (2.5-4.5) 03/18/18 09:33 Magnesium 1.6 MG/DL (1.6-2.3) 03/18/18 09:33 Total Bilirubin 0.5 mg/dl (0.2-1.3) 03/18/18 09:33 AST 26 U/L (14-36) 03/18/18 09:33 ALT 19 U/L (9-52) 03/18/18 09:33 Alkaline Phosphatase 85 U/L (38-126) 03/18/18 09:33 Total Protein 7.8 G/DL (6.3-8.2) 03/18/18 09:33 Albumin 4.3 g/dL (3.5-5.0) 03/18/18 09:33 Globulin 3.5 gm/dL (2.2-3.9) 03/18/18 09:33 Albumin/Globulin Ratio 1.2 (1.0-2.1) 03/18/18 09:33 Procalcitonin 2.23 NG/ML (0.19-0.49) H 03/19/18 09:13 Venous Blood Potassium 3.8 mmol/L (3.6-5.2) 03/18/18 09:30 Urine Color Yellow (YELLOW) 03/18/18 10:18 Urine Clarity Slighty-cloudy (Clear) 03/18/18 10:18 Urine pH 6.0 (5.0-8.0) 03/18/18 10:18 Ur Specific [place] 1.021 (1.003-1.030) 03/18/18 10:18 Urine Protein 30 mg/dL (NEGATIVE) 03/18/18 10:18 Urine Glucose (UA) Neg mg/dL (Normal) 03/18/18 10:18 Urine Ketones Negative mg/dL (NEGATIVE) 03/18/18 10:18 Urine Blood Negative (NEGATIVE) 03/18/18 10:18 Urine Nitrate Negative (NEGATIVE) 03/18/18 10:18 Urine Bilirubin Negative (NEGATIVE) 03/18/18 10:18 Urine Urobilinogen 0.2-1.0 mg/dL (0.2-1.0) 03/18/18 10:18 Ur Leukocyte Esterase Neg [place]/uL (Negative) 03/18/18 10:18 Urine RBC (Auto) 1 /hpf (0-3) 03/18/18 10:18 Urine Microscopic WBC 1 /hpf (0-5) 03/18/18 10:18 Ur Squamous Epith Cells 1 /hpf (0-5) 03/18/18 10:18 Urine Bacteria Rare (<OCC) 03/18/18 10:18 Influenza Typ A,B (EIA) Negative for flu a/b (NEGATIVE) 03/18/18 09:50 - Hospital Course Hospital Course: 72 y/o Female admitted for Sepsis likely secondary to Cystitis, with PMHx of NIDDM type 2, Uterine CA/cervical CA treated with chemo and radiation 13 years ago. During hospital stay patient was treated with IV antibiotic Rocephin 1G QD due to Sepsis 2/2 cystitis with WBC on admission of 17.7, she had significant improvement of symptoms and satisfactory progress, upon D/C home VS were reviewed and found WNL, WBC leukocytosis resolved 7.8, she denies abdominal pain , N/V/D/C, dysuria, chest pain, palpitations, ALCAZAR, fever, chills, Urinary incontinence. Patient instructions were given to f/u at [facility]. Ed instruction given. Final Impression: Sepsis secondary to cystitis resolved at this time. MEDS on D/C: Nystatin topical added for tx of intertrigo candidiasis. (see prescription section). Discharge Exam - Head Exam Head Exam: ATRAUMATIC, NORMOCEPHALIC - Eye Exam Eye Exam: EOMI, PERRL - ENT Exam ENT Exam: Mucous Membranes Moist - Respiratory Exam Respiratory Exam: Clear to PA & Lateral - Cardiovascular Exam Cardiovascular Exam: REGULAR RHYTHM, +S1, +S2 - GI/Abdominal Exam GI & Abdominal Exam: Normal Bowel Sounds. absent: Mass, Tenderness - Extremities Exam Extremities exam: full ROM - Back Exam Back exam: absent: CVA tenderness (L), CVA tenderness (R) - Neurological Exam Neurological exam: Alert, Oriented x3 - Psychiatric Exam Psychiatric exam: Normal Affect, Normal Mood - Skin Skin Exam: Dry, Normal Color Additional comments: noted mild erythematous area under L Breast area Discharge Plan - Discharge Medications Prescriptions: Aspirin [Ecotrin] 81 mg PO DAILY #30 tabec Ciprofloxacin [Cipro] 500 mg PO BID #14 tab Lisinopril [Zestril] 5 mg PO DAILY #30 tab Nystatin 60 gm TP TID #1 powder - Follow Up Plan Condition: STABLE Disposition: HOME/ ROUTINE Instructions: Urinary Tract Infection in Women (DC) Referrals: [facility] [Provider Group]
[2018-03-20 10:40] LABS: SQUAMOUS EPITHIAL < 1 /hpf (0-5); URINE BILIRUBIN NEGATIVE (NEGATIVE); URINE BLOOD NEGATIVE (NEGATIVE); URINE CLARITY CLEAR (Clear); URINE COLOR YELLOW (YELLOW); URINE GLUCOSE (UA) NEG (Normal); URINE LEUKOCYTE ESTERASE NEG Leu/uL (Negative); URINE PROTEIN NEGATIVE (NEGATIVE); URINE UROBILINOGEN 0.2-1.0 mg/dL (0.2-1.0)
[2018-03-21 23:06] VITALS: O2SAT 95
== END 2018-03-20 14:09 | disposition home or self-care (01) ==
LOC: H.ER 09:12 → H.ERHOLD 16:03 → H.TEL 18:21 → OBSVTOIN 03-19 08:56 → INTOOBSV 03-19 08:56
DX: A41.9 Sepsis, unspecified organism (principal); N30.90 Cystitis, unspecified without hematuria; E11.9 Type 2 diabetes mellitus without complications; B37.2 Candidiasis of skin and nail; I10 Essential (primary) hypertension; E78.00 Pure hypercholesterolemia, unspecified; K86.9 Disease of pancreas, unspecified; Z85.41 Personal history of malignant neoplasm of cervix uteri; Z85.42 Personal history of malignant neoplasm of other parts of uterus; Z92.21 Personal history of antineoplastic chemotherapy; Z92.3 Personal history of irradiation; K59.00 Constipation, unspecified; M48.061 Spinal stenosis, lumbar region without neurogenic claudication
CPT/HCPCS: 36415; 71045; 74177; 80048; 80053; 81003; 82803; 82948; 83735; 84100; 84145; 85025; 85027; 85610; 85730; 87040; 87086; 87804; 93005; 96360; 99285; G0378; J0696; J1650; J7030; J7040; Q9966; Q9967